=== PATIENT | female | born 1950 | race Caucasian/White ===

== ENCOUNTER 2019-10-05 15:44 | Emergency (ER) | payer MEDICARE, OTHER ==
[~2019-10-05] VITALS: Ht 155 cm; Wt 81.6 kg
[2019-10-05] MEDS ORDERED: FLUO20CA46 (16:31)
[2019-10-05] MEDS ORDERED: PANT40TA3 (16:31)
[2019-10-05 16:39] LABS: BASOPHILS % (AUTO) 0 % (0-10); EOSINOPHILS # (AUTO) 0.1 10^3/uL (0.0-0.3); EOSINOPHILS % (AUTO) 1 % (0-10); HEMATOCRIT 31 % (35-52); HEMOGLOBIN 10.4 G/DL (11.5-16.0); LYMPHOCYTES # (AUTO) 2.1 X 10^3 (1.0-4.0); LYMPHOCYTES % (AUTO) 20 % (12-44); MEAN CORPUSCULAR HEMOGLOBIN 22 PG (25-34); MEAN CORPUSCULAR HGB CONC 33 G/DL (32-36); MEAN CORPUSCULAR VOLUME 66 FL (80-99); MEAN PLATELET VOLUME 9.9 FL (7.4-10.4); MONOCYTES # (AUTO) 0.8 X 10^3 (0.0-1.0); MONOCYTES % (AUTO) 7 % (0-12); NEUTROPHILS # (AUTO) 7.6 X 10^3 (1.8-7.8); NEUTROPHILS % (AUTO) 72 % (42-75); PLATELET COUNT 333 10^3/uL (130-400); RED CELL DISTRIBUTION WIDTH 16.5 % (10.0-14.5); WHITE BLOOD COUNT 10.6 10^3/uL (4.3-11.0)
[2019-10-05 16:50] LABS: CHLORIDE 106 MMOL/L (98-107)
[2019-10-05 16:51] LABS: POTASSIUM 3.4 MMOL/L (3.6-5.0); SODIUM 139 MMOL/L (135-145)
--- NOTE | 2019-10-05 16:51 | ED Abdominal Pain ---
General Chief Complaint: Abdominal/GI Problems Stated Complaint: STERNUM PAIN Nursing Triage Note: PT PRESENTS TO ED COMPLAINING OF UPPER EPIGASTRIC PAIN THAT WOKE HER UP AT 0300 THIS AM. PT REPORTS SHE HAS HAD SIMILAR PAIN BEOFORE AND TOLD IS WAS REFLUX RELATED. PT REPORTS SHE TOOK PEPCID, PEPTO, AND PROTONIX AT HOME WITH NO RELIEF. PT REPORTS IT RADIATES ACROSS HER UPPER ABDOMEN AND AROUND TO HER BACK. PT REPROTS PAIN IS WORSE WHEN SHE LAYS DOWN. Sepsis Screen: No Definite Risk Source of Information: Patient Exam Limitations: No Limitations History of Present Illness Date Seen by Provider: Oct 05, 2019 Time Seen by Provider: 16:49 Initial Comments To ER with severe midline epigastric abdominal pain that radiates in a bandlike fashion around the entire upper abdomen radiating through to the back. It was worsened by laying flat earlier today. No nausea or vomiting. No chills. Timing/Duration: 1-2 Days Severity/Quality: Moderate Location: Epigastric, Generalized Abdomen Radiation: No Radiation Activities at Onset: None Associated Symptoms: Nausea/Vomiting Allergies and Home Medications Allergies Coded Allergies: No Known Drug Allergies (Unverified , 10/05/19) Patient Home Medication List Home Medication List Reviewed: Yes Review of Systems Review of Systems Constitutional: see HPI EENTM: No Symptoms Reported Respiratory: No Symptoms Reported Cardiovascular: No Symptoms Reported Gastrointestinal: See HPI, Abdominal Pain Genitourinary: No Symptoms Reported Musculoskeletal: no symptoms reported Skin: no symptoms reported Psychiatric/Neurological: No Symptoms Reported Endocrine: No Symptoms Reported Past Vdemvxq-Ufpqcr-Eeruji Hx Patient Social History Alcohol Use: Regular Use Alcohol Beverage of Choice: Beer Recreational Drug Use: No Smoking Status: Never a Smoker Recent Foreign Travel: No Contact w/Someone Who Travel: No Recent Infectious Disease Expo: No Recent Hopitalizations: No Physical Abuse: No Sexual Abuse: No Mistreated: No Fear: No Seasonal Allergies Seasonal Allergies: No Past Medical History Surgeries: Yes (R KNEE, NECK) Orthopedic Respiratory: No Cardiac: No Neurological: No Genitourinary: No Gastrointestinal: Yes Gastroesophageal Reflux, Diverticulosis Musculoskeletal: No Endocrine: No HEENT: No Cancer: No Psychosocial: Yes Depression Integumentary: No Blood Disorders: Yes (THALOSEMIA MINOR) Physical Exam Vital Signs Vital Signs - First Documented 10/05/19 16:20 Temp 36.8 Pulse 96 Resp 18 B/P (MAP) 157/78 (104) Pulse Ox 100 Capillary Refill : Less Than 3 Seconds Height/Weight/BMI Height: '" Weight: lbs. oz. kg; 33.00 BMI Method: General Appearance: WD/WN, no apparent distress HEENT: PERRL/EOMI, normal ENT inspection Respiratory: no respiratory distress, no accessory muscle use Cardiovascular: regular rate, rhythm, no murmur Gastrointestinal: normal bowel sounds, soft, tenderness Extremities: normal range of motion, non-tender Neurologic/Psychiatric: alert, normal mood/affect, oriented x 3 Skin: normal color, warm/dry Progress/Results/Core Measures Results/Orders Lab Results Laboratory Tests Test 10/05/19 16:19 Range/Units White Blood Count 10.6 4.3-11.0 10^3/uL Red Blood Count 4.73 4.35-5.85 10^6/uL Hemoglobin 10.4 L 11.5-16.0 G/DL Hematocrit 31 L 35-52 % Mean Corpuscular Volume 66 L 80-99 FL Mean Corpuscular Hemoglobin 22 L 25-34 PG Mean Corpuscular Hemoglobin Concent 33 32-36 G/DL Red Cell Distribution Width 16.5 H 10.0-14.5 % Platelet Count 333 130-400 10^3/uL Mean Platelet Volume 9.9 7.4-10.4 FL Neutrophils (%) (Auto) 72 42-75 % Lymphocytes (%) (Auto) 20 12-44 % Monocytes (%) (Auto) 7 0-12 % Eosinophils (%) (Auto) 1 0-10 % Basophils (%) (Auto) 0 0-10 % Neutrophils # (Auto) 7.6 1.8-7.8 X 10^3 Lymphocytes # (Auto) 2.1 1.0-4.0 X 10^3 Monocytes # (Auto) 0.8 0.0-1.0 X 10^3 Eosinophils # (Auto) 0.1 0.0-0.3 10^3/uL Basophils # (Auto) 0.0 0.0-0.1 10^3/uL Sodium Level 139 135-145 MMOL/L Potassium Level 3.4 L 3.6-5.0 MMOL/L Chloride Level 106 98-107 MMOL/L Carbon Dioxide Level 21 21-32 MMOL/L Anion Gap 12 5-14 MMOL/L Blood Urea Nitrogen 14 7-18 MG/DL Creatinine 0.82 0.60-1.30 MG/DL Estimat Glomerular Filtration Rate > 60 BUN/Creatinine Ratio 17 Glucose Level 119 H 70-105 MG/DL Calcium Level 8.7 8.5-10.1 MG/DL Corrected Calcium 8.7 8.5-10.1 MG/DL Total Bilirubin 1.0 0.1-1.0 MG/DL Aspartate Amino Transf (AST/SGOT) 18 5-34 U/L Alanine Aminotransferase (ALT/SGPT) 19 0-55 U/L Alkaline Phosphatase 79 40-136 U/L Total Protein 7.0 6.4-8.2 GM/DL Albumin 4.0 3.2-4.5 GM/DL Lipase 12 8-78 U/L My Orders Orders - VALERIY PEREZ APRN Cbc With Automated Diff (10/05/19 16:33) Comprehensive Metabolic Panel (10/05/19 16:33) Lipase (10/05/19 16:33) Ua Culture If Indicated (10/05/19 16:33) Ed Iv/Invasive Line Start (10/05/19 16:33) Ketorolac Injection (Toradol Injection) (10/05/19 17:00) Fentanyl Injection (Sublimaze Injection (10/05/19 17:00) Ct Abdomen/Pelvis W (10/05/19 17:12) Antacid Suspension (Mylanta Suspension (10/05/19 17:15) Lidocaine 2% Viscous 15 Ml (Xylocaine Vi (10/05/19 17:15) Iohexol Injection (Omnipaque 350 Mg/Ml 1 (10/05/19 17:30) Received Contrast (Hold Metformin- Contr (10/05/19 17:30) Ns (Ivpb) (Sodium Chloride 0.9% Ivpb Bag (10/05/19 17:30) Iohexol Injection (Omnipaque 350 Mg/Ml 1 (10/05/19 17:30) Received Contrast (Hold Metformin- Contr (10/05/19 17:30) Ns (Ivpb) (Sodium Chloride 0.9% Ivpb Bag (10/05/19 17:30) Medications Given in ED Current Medications Medications Dose Ordered Sig/Nadine Route Start Time Stop Time Status Last Admin Dose Admin Al Hydrox/Mg Hydrox/Simethicone 30 ml ONCE ONCE PO 10/05/19 17:15 10/05/19 17:16 DC 10/05/19 17:50 30 ML Fentanyl Citrate 25 mcg ONCE ONCE IVP 10/05/19 17:00 10/05/19 17:01 DC 10/05/19 17:50 25 MCG Iohexol 100 ml ONCE ONCE IV 10/05/19 17:30 10/05/19 17:31 DC 10/05/19 17:44 100 ML Ketorolac Tromethamine 15 mg ONCE ONCE IVP 10/05/19 17:00 10/05/19 17:01 DC 10/05/19 17:50 15 MG Lidocaine HCl 15 ml ONCE ONCE PO 10/05/19 17:15 10/05/19 17:16 DC 10/05/19 17:50 15 ML Sodium Chloride 100 ml ONCE ONCE IV 10/05/19 17:30 10/05/19 17:31 DC 10/05/19 17:45 80 ML Vital Signs/I&O 10/05/19 16:20 Temp 36.8 Pulse 96 Resp 18 B/P (MAP) 157/78 (104) Pulse Ox 100 Blood Pressure Mean: 104 Diagnostic Imaging Diagonstic Imaging: CT Comments NAME: HEMANTH GONZALES [facility] REC#: [id number] PT STATUS: REG ER : 1950 PHYSICIAN: VALERIY PEREZ MANAGER PRICING ADMIT DATE: 10/05/19/ER Draft Date of Exam:10/05/19 CT ABDOMEN/PELVIS W EXAMINATION: CT abdomen and pelvis with contrast from 10/05/2019. TECHNIQUE: Multiple contiguous axial images were obtained through the abdomen and pelvis after administration of intravenous contrast. Auto Exposure Controls were utilized during the CT exam to meet ALARA standards for radiation dose reduction. INDICATION: Upper abdominal pain which radiates around to the back. FINDINGS: Lung bases and osseous structures are unremarkable. There is fatty infiltration throughout the liver. Gallbladder is markedly distended and contains multiple stones. Sonography could further characterize if there is concern for acute cholecystitis. The pancreas is unremarkable. The spleen contains tiny calcified granulomata. There are several peripherally calcified splenic artery aneurysms, the largest of which measures 1.2 cm. Adrenal glands are unremarkable. Kidneys are unremarkable. Appendix is normal. There are diverticular changes without evidence for acute diverticulitis. IMPRESSION: 1. Distended gallbladder containing multiple stones. See above discussion. 2. Multiple other incidental findings as above. Dictated on workstation # [id number] Dict: 10/05/19 1750 Trans: 10/05/19 180 [id number] Interpreted by: KRISSY BERNAL MD Electronically signed by: Departure Communication (Admissions) [id number] she is completely pain-free and nontender to palpation all I spoke with Dr. BELL, he'll see her Tuesday at 2 PM. Impression Primary Impression: Symptomatic cholelithiasis Disposition: HOME, SELF-CARE Condition: Stable Departure-Patient Inst. Decision time for Depature: 18:13 Referrals: COLTEN JACK MD (PCP/Family) Primary Care Physician DONNA BELL MD Patient Instructions: Gallstones Add. Discharge Instructions: 1. Low fat low dairy product diet in the meantime. He'll see Dr. BELL's office Tuesday at 2 PM. Return to ER for any intolerable pain vomiting fevers or other concerns. Use the pain medication as needed. All discharge instructions reviewed with patient and/or family. Voiced understanding. Scripts Ondansetron (Ondansetron Odt) 8 Mg Tab.rapdis 8 MG PO Q6H PRN for NAUSEA/VOMITING, #10 TAB Prov: VALERIY PEREZ APRN 10/05/19 Copy Copies To 1: DONNA BELL MD, PETER J APRN Oct 05, 2019 16:51
[2019-10-05 16:52] LABS: CALCIUM 8.7 MG/DL (8.5-10.1)
[2019-10-05 16:53] LABS: GLUCOSE 119 MG/DL (70-105)
[2019-10-05 16:54] LABS: CARBON DIOXIDE 21 MMOL/L (21-32)
[2019-10-05 16:56] LABS: ALKALINE PHOSPHATASE 79 U/L (40-136)
[2019-10-05 16:57] LABS: CREATININE SERUM 0.82 MG/DL (0.60-1.30); GFR ESTIMATED > 60
[2019-10-05 16:58] LABS: BUN/CREATININE RATIO 17
[2019-10-05 16:59] LABS: ALANINE AMINOTRANSFERASE 19 U/L (0-55)
[2019-10-05 17:00] LABS: LIPASE 12 U/L (8-78)
[2019-10-05] MEDS ORDERED: KETOROLAC 30 MG/ML VIAL IVP ONE (17:00)
[2019-10-05] MEDS ORDERED: fentaNYL INJECTION 100 MCG/2 ML AMP IVP ONE (17:00)
[2019-10-05] MEDS ORDERED: ANTACID SUSP 30 ML UDC (MYLANTA) PO ONE (17:15)
[2019-10-05] MEDS ORDERED: LIDOCAINE 2% VISCOUS 15 ML UDC PO ONE (17:15)
[2019-10-05] MEDS ORDERED: NS 100 ML (IVPB) BAG IV ONE ×2 (17:30)
[2019-10-05] MEDS ORDERED: HOLD METFORMIN - RECEIVED CONTRAST 20 ML VIAL IV SCH ×2 (17:30)
[2019-10-05] MEDS ORDERED: IOHEXOL 350 MG/ML 100 ML (OMNIPAQUE 350) VIAL IV ONE ×2 (17:30)
--- NOTE | 2019-10-05 18:03 | Diagnostic Imaging Report ---
EXAMINATION: CT abdomen and pelvis with contrast from 10/05/2019. TECHNIQUE: Multiple contiguous axial images were obtained through the abdomen and pelvis after administration of intravenous contrast. Auto Exposure Controls were utilized during the CT exam to meet ALARA standards for radiation dose reduction. INDICATION: Upper abdominal pain which radiates around to the back. FINDINGS: Lung bases and osseous structures are unremarkable. There is fatty infiltration throughout the liver. Gallbladder is markedly distended and contains multiple stones. Sonography could further characterize if there is concern for acute cholecystitis. The pancreas is unremarkable. The spleen contains tiny calcified granulomata. There are several peripherally calcified splenic artery aneurysms, the largest of which measures 1.2 cm. Adrenal glands are unremarkable. Kidneys are unremarkable. Appendix is normal. There are diverticular changes without evidence for acute diverticulitis. IMPRESSION: 1. Distended gallbladder containing multiple stones. See above discussion. 2. Multiple other incidental findings as above. Dictated by: Dictated on workstation # [id number]
[2019-10-05] MEDS ORDERED: HYDR-3870 PO (18:15)
[2019-10-05] MEDS ORDERED: ONDA8TAB13 PO (18:15)
[2019-10-05 18:25] VITALS: BP 159/84
[2019-10-05] MEDS ORDERED: RX-HYDROCODONE/APAP 5/325 MG #4 TAB PK PO PRN (18:30)
--- OUTSIDE RECORDS SUMMARY | 2019-10-05 19:21 | XMS REPORT | CCD ---
Author Author Vaishali Najera Organization Anita Najera MD, [facility] Address [address] [place] [address] Phone Care Team Providers Care Motor Checker Name Role Phone PP Unavailable CCM Unavailable Summary Purpose Interface Exchange Insurance Providers Payer name Policy type / Coverage type Covered green party ID Effective Begin Date Effective End Date WPS Medicare Part B Medicare Part B [id number] Unknown Cigna Medicare Part B 80 [id number] Unknown Family history Father Diagnosis Age At Onset Colon cancer Unknown Mother Diagnosis Age At Onset Cancer Unknown Colon cancer Unknown Brother Diagnosis Age At Onset lung cancer Unknown Depression Unknown Social History Social History Element Codes Description Effective Dates Marital status Unknown M arried 10/28/2014 Number of children Unknown 2 10/28/2014 Employment Unknown Retir ed previously worked at the [employer] in the [place] - sometimes 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 10/28/[address]: 438985027 Never smoker 10/28/[address]: 022730 Currently drinks alcohol 10/28/2014 Frequency of drinks SNOMED CT: 602956745 14 drinks per week - drinks about 3 nights a week - 4 - 5 beers at a time . 10/28/2014 Allergies, Adverse Reactions, Alerts Substance Reaction Codes Entered Date Inactivated Date Status * NO KNOWN DRUG KORY RGIES Unknown 10/28/2014 No Inactive Date Active Past Medical History Illness Codes Condition Status Onset Date Resolved Date Allergic rhinitis du e to pollen ICD-9: 477.9 ICD-10: J30.1 Active 10/30/2018 Unknown Impacted cerumen, bi lateral ICD-9: 380.4 ICD-10: H61.23 Active 10/23/2018 Unknown Other acute sinusitis ICD-9: 461.8 ICD-10: J01.80 Active 10/23/2018 Unknown Other allergic rhinitis ICD-9: 477.8 ICD-10: J30.89 Active 10/23/2018 Unknown Gastro-esophageal re flux disease without esophagitis ICD-9: 530.81 ICD-10: K21.9 Active 11/30/2017 Unknown Thalassemia minor ICD-9: 282.46 ICD-10: D56.3 Active 05/17/2017 Unknown Generalized anxiety disorder ICD-9: 300.00 ICD-10: F41.1 Active 11/30/2017 Unknown Major depressive dis order, single episode, moderate ICD-9: 296.22 ICD-10: F32.1 Active 11/30/2017 Unknown Encounter for genera l adult medical examination with abnormal findings ICD-9: V70.0 ICD-10: Z00.01 Active 05/12/2016 Unknown Pain in right knee ICD- 9: 719.46 ICD-10: M25.561 Active 02/16/2016 Unknown Encounter for genera l adult medical examination without abnormal findings ICD-9: V70.0 ICD-10: Z00.00 Active 04/13/2015 Unknown Benign paroxysmal ve rtigo, unspecified ear ICD-9: 780.4 ICD-10: H81.10 Active 12/22/2014 Unknown Depression Unknown Active 10/28/2014 Unknow n DEPRESSIVE DISORDER NEC ICD-9: 311 Active 10/27/2014 Unknown ESOPHAGEAL REFLUX ICD-9: 530.81 Active 10/27/2014 Unknown Routine medical exam ICD-9: V70.0 Active 10/27/2014 Unknown Thalassemia carrier ICD- 9: 282.46 Active 10/27/2014 Unknown Problems Condition Codes Effectiv e Dates Condition Status Allergic rhinitis du e to pollen ICD-9: 477.9 ICD-10: J30.1 10/30/2018 Active Impacted cerumen, bi lateral ICD-9: 380.4 ICD-10: H61.23 10/23/2018 Active Other acute sinusitis ICD-9: 461.8 ICD-10: J01.80 10/23/2018 Active Other allergic rhinitis ICD-9: 477.8 ICD-10: J30.89 10/23/2018 Active Gastro-esophageal re flux disease without esophagitis ICD-9: 530.81 ICD-10: K21.9 11/30/2017 Active Thalassemia minor ICD-9: 282.46 ICD-10: D56.3 05/17/2017 Active Generalized anxiety disorder ICD-9: 300.00 ICD-10: F41.1 11/30/2017 Active Major depressive dis order, single episode, moderate ICD-9: 296.22 ICD-10: F32.1 11/30/2017 Active Encounter for genera l adult medical examination with abnormal findings ICD-9: V70.0 ICD-10: Z00.01 05/12/2016 Active Pain in right knee ICD- 9: 719.46 ICD-10: M25.561 02/16/2016 Active Encounter for genera l adult medical examination without abnormal findings ICD-9: V70.0 ICD-10: Z00.00 04/13/2015 Active Benign paroxysmal ve rtigo, unspecified ear ICD-9: 780.4 ICD-10: H81.10 12/22/2014 Active Depression Unknown 10/28/2014 Active DEPRESSIVE DISORDER NEC ICD-9: 311 10/27/2014 Active ESOPHAGEAL REFLUX ICD-9: 530.81 10/27/2014 Active Routine medical exam ICD-9: V70.0 10/27/2014 Active Thalassemia carrier ICD- 9: 282.46 10/27/2014 Active Medications Medication Codes Instruc tions Start Date Stop Date Sta tus Fill Instructions Zithromax Z-Feliberto 250 mg tablet RxNorm: 717589 1 Tablet(s) PO UD 10/23/2018 No Stop Date Active zpack as directed Protonix 40 mg table t,delayed release RxNorm: 838816 1 Tablet(s) PO daily 10/05/2018 02/01/2019 Ac tive Protonix 40 mg table t,delayed release RxNorm: 114579 1 Tablet(s) PO daily 09/13/2018 09/26/2018 In active Carafate 1 gram tablet RxNorm: 282999 1 Tablet(s) PO QID as needed 09/13/2018 10/12/2018 Inactive Prozac 20 mg capsule RxNorm: 923616 TAKE 1 CAPSULE BY MOUTH ONCE DAILY 08/09/2018 No Stop Date Active omeprazole 20 mg cap bernadette,delayed release RxNorm: 556122 TAKE 1 CAPSULE BY MEREDITH TH ONCE DAILY 08/07/2018 10/04/2018 Inactive Prozac 20 mg capsule RxNorm: 854781 TAKE 1 CAPSULE BY MOUTH ONCE DAILY 07/10/2018 08/08/2018 In active Prozac 20 mg capsule RxNorm: 809200 TAKE 1 CAPSULE BY MOUTH ONCE DAILY 12/29/2017 07/09/2018 In active Prozac 20 mg capsule RxNorm: 795493 TAKE 1 CAPSULE BY MOUTH ONCE DAILY 11/28/2017 12/28/2017 In active Prozac 20 mg capsule RxNorm: 753297 TAKE ONE CAPSULE BY MOUTH ONCE DAILY 08/22/2017 11/27/2017 In active omeprazole 20 mg cap bernadette,delayed release RxNorm: 471721 1 Capsule(s) PO daily 07/07/2017 01/02/2018 In active omeprazole 20 mg cap bernadette,delayed release RxNorm: 028291 1 Capsule(s) PO daily 05/17/2017 06/15/2017 In active Prozac 20 mg capsule RxNorm: 549056 TAKE ONE CAPSULE BY MOUTH ONCE DAILY 02/07/2017 08/21/2017 In active Zithromax Z-Feliberto 250 mg tablet RxNorm: 730173 1 Tablet(s) PO UD 01/13/2017 07/06/2017 Inactive zpack as directed Prozac 20 mg capsule RxNorm: 084441 TAKE ONE CAPSULE BY MOUTH ONCE DAILY 01/03/2017 02/06/2017 In active omeprazole 40 mg cap bernadette,delayed release RxNorm: 033682 TAKE ONE CAPSULE BY M OUTH EVERY OTHER DAY 01/03/2017 07/06/2017 Inactive Prozac 20 mg capsule RxNorm: 315323 TAKE ONE CAPSULE BY MOUTH ONCE DAILY 10/04/2016 01/01/2017 In active omeprazole 40 mg cap bernadette,delayed release RxNorm: 690284 TAKE ONE CAPSULE BY M OUTH EVERY OTHER DAY 05/24/2016 11/19/2016 Inactive Prozac 20 mg capsule RxNorm: 033692 TAKE ONE CAPSULE BY MOUTH ONCE DAILY 05/24/2016 09/20/2016 In active omeprazole 40 mg cap bernadette,delayed release RxNorm: 513577 TAKE ONE CAPSULE BY M OUTH EVERY OTHER DAY 03/22/2016 05/20/2016 Inactive Prozac 20 mg capsule RxNorm: 496253 Capsule(s) TAKE ONE CAPSULE BY MOUTH ONC E DAILY 11/18/2015 05/15/2016 Inactive Prozac 20 mg capsule RxNorm: 743769 Capsule(s) TAKE ONE CAPSULE BY MOUTH ONC E DAILY 09/16/2015 11/14/2015 Inactive omeprazole 40 mg cap bernadette,delayed release RxNorm: 345412 Capsule(s) 1 Capsule( s) PO every other day 08/29/2015 02/24/2016 Inactive Prozac 20 mg capsule RxNorm: 458378 Capsule(s) TAKE ONE CAPSULE BY MOUTH ONC E DAILY 07/22/2015 09/15/2015 Inactive Prozac 20 mg capsule RxNorm: 951530 Capsule(s) TAKE ONE CAPSULE BY MOUTH ONC E DAILY 05/19/2015 07/17/2015 Inactive Prozac 20 mg capsule RxNorm: 182822 TAKE ONE CAPSULE BY MOUTH ONCE DAILY 03/14/2015 05/12/2015 In active omeprazole 40 mg cap bernadette,delayed release RxNorm: 015059 1 Capsule(s) PO every other day 02/06/2015 08/04/2015 Inactive omeprazole 40 mg cap bernadette,delayed release RxNorm: 408827 1 Capsule(s) PO every other day 01/06/2015 02/04/2015 Inactive Prozac 20 mg capsule RxNorm: 554980 1 Capsule(s) PO daily 11/04/2014 03/03/2015 Inactive Prozac 40 mg capsule RxNorm: 683282 1 Capsule(s) PO daily 10/28/2014 11/03/2014 Inactive omeprazole 40 mg cap bernadette,delayed release RxNorm: 758548 1 Capsule(s) PO every other day 10/28/2014 11/26/2014 Inactive Prozac oral RxNorm: 388845 oral No Start Date 10/27/2014 Inactive Zithromax Z-Feliberto 250 mg tablet RxNorm: 405891 1 Tablet(s) PO UD No Start Date 01/12/2017 Inactive zpack as directed Protonix 40 mg table t,delayed release RxNorm: 812220 1 Tablet(s) PO daily No Start Date 10/28/2014 Inactive Medication Administered No Medication Administered data Immunizations No Immunization data Assessments Condition Codes Effectiv e Dates Allergic rhinitis due to pollen ICD- 10: J30.1 ICD-9: 477.9 10/30/2018 Other allergic rhinitis ICD-10: J30. 89 ICD-9: 477.8 10/23/2018 Impacted cerumen, bilateral ICD-10: H61.23 ICD-9: 380.4 10/23/2018 Other acute sinusitis ICD-10: J01.80 ICD-9: 461.8 10/23/2018 Gastro-esophageal reflux disease without esophagitis ICD-10: K21.9 ICD-9: 530.81 09/13/2018 Major depressive disorder, single episode, moderate ICD-10: F32.1 ICD-9: 296.22 11/30/2017 Generalized anxiety disorder ICD-10: F41.1 ICD-9: 300.00 11/30/2017 Thalassemia minor ICD-10: D56.3 ICD-9: 282.46 11/30/2017 Encounter for general adult medical exam ination with abnormal findings ICD-10: Z00.01 ICD-9: V70.0 05/17/2017 Pain in right knee ICD-10: M25.561 ICD-9: 719.46 02/17/2016 Encounter for general adult medical exam ination without abnormal findings ICD-10: Z00.00 ICD-9: V70.0 04/14/2015 Benign paroxysmal vertigo, unspecified ear ICD-10: H81.10 ICD-9: 780.4 12/23/2014 Thalassemia carrier ICD-9: 282.46 10/28/2014 Routine medical exam ICD-9: V70.0 10/28/2014 ESOPHAGEAL REFLUX ICD-9: 530.81 10/28/2014 DEPRESSIVE DISORDER NEC ICD-9: 311 10/28/2014 Reason For Visit Reason For Visit Effective Dates Notes earache 10/23/2018 drain age abdominal pain 09/13/2018 medication follow up 11/30/2017 Annual Medicare Wellness Exam 05/17/2017 Annual Medicare Wellness Exam 05/12/2016 knee pain 02/17/2016 Annual Medicare Wellness Exam 04/14/2015 vertigo 12/23/2014 depression 10/28/2014 delano jones prozac Results Observation Observation Code Item Item Code Result Date Cbc With Differential Ord2 WBC 9.01 K/ul 09/13/2018 Cbc With Differential Ord2 RBC 4.60 M/ul 09/13/2018 Cbc With Differential Ord2 HGB 10.1 g/dl 09/13/2018 Cbc With Differential Ord2 HCT 30.9 % 09/13/2018 Cbc With Differential Ord2 Neut% 66.5 % 09/13/2018 Cbc With Differential Ord2 MCV 67.2 fl 09/13/2018 Cbc With Differential Ord2 Lymph% 23.6 % 09/13/2018 Cbc With Differential Ord2 MCH 22.0 pg 09/13/2018 Cbc With Differential Ord2 [place]% 8.0 % 09/13/2018 Cbc With Differential Ord2 MCHC 32.7 pg 09/13/2018 Cbc With Differential Ord2 Eos% 1.7 % 09/13/2018 Cbc With Differential Ord2 PLT 361 K/ul 09/13/2018 Cbc With Differential Ord2 Baso% 0.2 % 09/13/2018 Cbc With Differential Ord2 Neut ABS# 5.99 K/ul 09/13/2018 Cbc With Differential Ord2 RDW 16.7 % 09/13/2018 Cbc With Differential Ord2 Lymph ABS# 2.13 K/ul 09/13/2018 Cbc With Differential Ord2 [place] ABS# 0.7 K/ul 09/13/2018 Cbc With Differential Ord2 Eos ABS# 0.2 K/ul 09/13/2018 Cbc With Differential Ord2 Baso ABS# 0.0 K/ul 09/13/2018 Comp Metabolic Oes855 NA 137 mEq/L 09/13/2018 Comp Metabolic Dzf650 K 4.3 mEq/L 09/13/2018 Comp Metabolic Syz185 CL 101 mEq/L 09/13/2018 Comp Metabolic Xop088 CO2 28.0 mEq/L 09/13/2018 Comp Metabolic Dlb499 AN ION GAP 12 09/13/2018 Comp Metabolic Mse540 GL UCOSE 97 mg/dL 09/13/2018 Comp Metabolic Irp668 Cr eat 0.9 mg/dL 09/13/2018 Comp Metabolic Zmf760 eG FR 64 ml/min/1.73m2 09/13 Comp Metabolic Pbm777 BUN 16 mg/dL 09/13/2018 Comp Metabolic Aap044 B/ C Ratio 17.2 Ratio 09/13/2018 Comp Metabolic Gax703 CA LCIUM 9.6 mg/dL 09/13/2018 Comp Metabolic Myn366 AL K PHOS 94 U/L 09/13/2018 Comp Metabolic Uua790 T(SGOT) 49 U/L 09/13/2018 Comp Metabolic Jfu278 AL T(SGPT) 29 U/L 09/13/2018 Comp Metabolic Lix207 BI LI T 1.2 mg/dL 09/13/2018 Comp Metabolic Jfe349 AL BUMIN 4.3 g/dL 09/13/2018 Comp Metabolic Pxa128 TP RO 7.0 g/dL 09/13/2018 Comp Metabolic Ich757 GL OB 2.7 g/dL 09/13/2018 Comp Metabolic Tdr751 A/ G Ratio 1.6 Ratio 09/13/2018 Comp Metabolic Yhj867 Os mo 275 mOsmo 09/13/2018 Cbc With Differential Ord2 WBC 5.67 K/ul 05/19/2017 Cbc With Differential Ord2 RBC 4.70 M/ul 05/19/2017 Cbc With Differential Ord2 HGB 10.3 g/dl 05/19/2017 Cbc With Differential Ord2 HCT 32.1 % 05/19/2017 Cbc With Differential Ord2 Neut% 53.4 % 05/19/2017 Cbc With Differential Ord2 MCV 68.3 fl 05/19/2017 Cbc With Differential Ord2 Lymph% 34.9 % 05/19/2017 Cbc With Differential Ord2 MCH 21.9 pg 05/19/2017 Cbc With Differential Ord2 [place]% 8.1 % 05/19/2017 Cbc With Differential Ord2 MCHC 32.1 pg 05/19/2017 Cbc With Differential Ord2 Eos% 3.2 % 05/19/2017 Cbc With Differential Ord2 PLT 302 K/ul 05/19/2017 Cbc With Differential Ord2 Baso% 0.4 % 05/19/2017 Cbc With Differential Ord2 RDW 16.2 % 05/19/2017 Cbc With Differential Ord2 Neut ABS# 3.03 K/ul 05/19/2017 Cbc With Differential Ord2 Lymph ABS# 1.98 K/ul 05/19/2017 Cbc With Differential Ord2 [place] ABS# 0.5 K/ul 05/19/2017 Cbc With Differential Ord2 Eos ABS# 0.2 K/ul 05/19/2017 Cbc With Differential Ord2 Baso ABS# 0.0 K/ul 05/19/2017 Comp Metabolic Ppo309 NA 142 mEq/L 05/19/2017 Comp Metabolic Exm483 K 4.2 mEq/L 05/19/2017 Comp Metabolic Auz733 CL 105 mEq/L 05/19/2017 Comp Metabolic Nsj248 CO2 29.0 mEq/L 05/19/2017 Comp Metabolic Eyu284 AN ION GAP 12 05/19/2017 Comp Metabolic Eum253 GL UCOSE 95 mg/dL 05/19/2017 Comp Metabolic Cyb621 Cr eat 0.7 mg/dL 05/19/2017 Comp Metabolic Lmu182 eG FR 90 ml/min/1.73m2 05/19 Comp Metabolic Ixj204 BUN 14 mg/dL 05/19/2017 Comp Metabolic Rlm236 B/ C Ratio 20.3 Ratio 05/19/2017 Comp Metabolic Yhv214 CA LCIUM 9.1 mg/dL 05/19/2017 Comp Metabolic Izp104 AL K PHOS 70 U/L 05/19/2017 Comp Metabolic Jgy467 T(SGOT) 17 U/L 05/19/2017 Comp Metabolic Cin530 AL T(SGPT) 14 U/L 05/19/2017 Comp Metabolic Nam423 BI LI T 0.9 mg/dL 05/19/2017 Comp Metabolic Meh614 AL BUMIN 4.2 g/dL 05/19/2017 Comp Metabolic Kne190 TP RO 6.4 g/dL 05/19/2017 Comp Metabolic Zfc935 GL OB 2.2 g/dL 05/19/2017 Comp Metabolic Kof411 A/ G Ratio 1.9 Ratio 05/19/2017 Comp Metabolic Ypm159 Os mo 283 mOsmo 05/19/2017 Tsh Ord6 TSH (3rd IS) 1.28 uIU/mL 05/19/2017 Lipid Ord30 CHOL 213 mg/dL 05/19/2017 Lipid Ord30 HDL 79.0 mg/dl 05/19/2017 Lipid Ord30 TRIG 73 mg/dL 05/19/2017 Lipid Ord30 LDL 119 mg/dL 05/19/2017 Lipid Ord30 C/HDL 2.7 Ratio 05/19/2017 Influenza A+B Idn129 Inf jeff A+B Negative 01/12/2017 Tsh Ord6 hTSH II 1.17 uIU/mL 10/29/2014 Comp Metabolic Gou130 NA 138 mEq/L 10/29/2014 Comp Metabolic Jok940 K 4.3 mEq/L 10/29/2014 Comp Metabolic Xra508 CL 102 mEq/L 10/29/2014 Comp Metabolic Mxd856 CO2 30.0 mEq/L 10/29/2014 Comp Metabolic Zuo628 AN ION GAP 10 10/29/2014 Comp Metabolic Uyp295 GL UCOSE 76 mg/dL 10/29/2014 Comp Metabolic Bia799 Cr eat 0.8 mg/dL 10/29/2014 Comp Metabolic Ccd884 eG FR 81 ml/min/1.73m2 10/29 Comp Metabolic Ilv121 BUN 9 mg/dL 10/29/2014 Comp Metabolic Ube159 B/ C Ratio 11.8 Ratio 10/29/2014 Comp Metabolic Kbb669 CA LCIUM 9.1 mg/dL 10/29/2014 Comp Metabolic Enm290 AL K PHOS 75 U/L 10/29/2014 Comp Metabolic Fvh800 T(SGOT) 14 U/L 10/29/2014 Comp Metabolic Zwa287 AL T(SGPT) 12 U/L 10/29/2014 Comp Metabolic Hch583 BI LI T 0.8 mg/dL 10/29/2014 Comp Metabolic Shw073 AL BUMIN 4.2 g/dL 10/29/2014 Comp Metabolic Kft680 TP RO 6.6 g/dL 10/29/2014 Comp Metabolic Ghi142 GL OB 2.4 g/dL 10/29/2014 Comp Metabolic Hyz220 A/ G Ratio 1.8 Ratio 10/29/2014 Comp Metabolic Cvw860 Os mo 273 mOsmo 10/29/2014 Lipid Ord30 CHOL 215 mg/dL 10/29/2014 Lipid Ord30 HDL 77.0 mg/dl 10/29/2014 Lipid Ord30 TRIG 146 mg/dL 10/29/2014 Lipid Ord30 LDL 109 mg/dL 10/29/2014 Lipid Ord30 C/HDL 2.8 Ratio 10/29/2014 Cbc With Differential Ord2 WBC 6.0 K/uL 10/29/2014 Cbc With Differential Ord2 LYM 2.3 K/uL 10/29/2014 Cbc With Differential Ord2 LYM% 39.0 % 10/29/2014 Cbc With Differential Ord2 NEUT/GRAN 3.3 K/uL 10/29/2014 Cbc With Differential Ord2 NEUT/GRAN % 55.3 % 10/29/2014 Cbc With Differential Ord2 MID 0.3 K/uL 10/29/2014 Cbc With Differential Ord2 MID% 5.7 % 10/29/2014 Cbc With Differential Ord2 RBC 4.98 M/uL 10/29/2014 Cbc With Differential Ord2 HGB 10.4 g/dL 10/29/2014 Cbc With Differential Ord2 HCT 33.7 % 10/29/2014 Cbc With Differential Ord2 MCV 68 fL 10/29/2014 Cbc With Differential Ord2 MCH 21 pg 10/29/2014 Cbc With Differential Ord2 MCHC 31 g/dL 10/29/2014 Cbc With Differential Ord2 PLT 310 K/uL 10/29/2014 Cbc With Differential Ord2 RDW 17.2 % 10/29/2014 Review of Systems System Result Effective Dates Constitutional recent illness 10/23/2018 Constitutional No chills 10/23/2018 Constitutional No diaphoresis 10/23/2018 Constitutional No fever 10/23/2018 Eyes No eye erythema Ears/Nose/Throat/Neck nasal allergies 10/23/2018 Ears/Nose/Throat/Neck nasal discharge 10/23/2018 Ears/Nose/Throat/Neck postnasal drip 10/23/2018 Ears/Nose/Throat/Neck sinus congestion 10/23/2018 Ears/Nose/Throat/Neck No sore throat 10/23/2018 Cardiovascular No chest pain/pressure 10/23/2018 Cardiovascular No dyspnea 10/23/2018 Respiratory No chest congestion 10/23/2018 Respiratory cough 2018 Respiratory No dyspnea 0 10/23/2018 Gastrointestinal No abdominal pain 10/23/2018 Gastrointestinal No constipation 10/23/2018 Gastrointestinal No diarrhea 10/23/2018 Gastrointestinal No nausea 10/23/2018 Gastrointestinal No vomiting 10/23/2018 Dermatologic No rash Neurologic No alteration of consciousness 10/23/2018 Neurologic No mental status change 10/23/2018 Ears/Nose/Throat/Neck otalgia 10/23/2018 Constitutional recent illness 09/13/2018 Constitutional No chills 09/13/2018 Constitutional No diaphoresis 09/13/2018 Constitutional No fever 09/13/2018 Eyes No eye erythema 12/2018 Ears/Nose/Throat/Neck No nasal discharge 09/13/2018 Cardiovascular No chest pain/pressure 09/13/2018 Cardiovascular No dyspnea 09/13/2018 Respiratory No chest congestion 09/13/2018 Respiratory No cough 12/2018 Gastrointestinal abdominal pain 09/13/2018 Gastrointestinal No constipation 09/13/2018 Gastrointestinal diarrhea 09/13/2018 Gastrointestinal No hematochezia 09/13/2018 Gastrointestinal No melena 09/13/2018 Gastrointestinal nausea 09/13/2018 Gastrointestinal vomiting 09/13/2018 Neurologic No alteration of consciousness 09/13/2018 Neurologic No mental status change 09/13/2018 Gastrointestinal gastroesophageal reflux 09/13/2018 Constitutional No recent illness 11/30/2017 Constitutional No chills 11/30/2017 Constitutional No diaphoresis 11/30/2017 Constitutional No fever 11/30/2017 Eyes No eye erythema Ears/Nose/Throat/Neck No nasal discharge 11/30/2017 Ears/Nose/Throat/Neck No nasal allergies 11/30/2017 Cardiovascular No chest pain/pressure 11/30/2017 Cardiovascular No dyspnea 11/30/2017 Respiratory No cough Respiratory No chest congestion 11/30/2017 Gastrointestinal No abdominal pain 11/30/2017 Gastrointestinal No constipation 11/30/2017 Gastrointestinal No diarrhea 11/30/2017 Gastrointestinal No vomiting 11/30/2017 Gastrointestinal No nausea 11/30/2017 Gastrointestinal No melena 11/30/2017 Gastrointestinal No hematochezia 11/30/2017 Gastrointestinal No gastroesophageal reflu x 11/30/2017 Musculoskeletal No joint complaint 11/30/2017 Dermatologic No rash Neurologic No alteration of consciousness 11/30/2017 Neurologic No mental status change 11/30/2017 Constitutional No recent illness 05/17/2017 Constitutional No chills 05/17/2017 Constitutional No diaphoresis 05/17/2017 Constitutional No fever 05/17/2017 Eyes No eye erythema Ears/Nose/Throat/Neck No nasal discharge 05/17/2017 Cardiovascular No chest pain/pressure 05/17/2017 Cardiovascular No dyspnea 05/17/2017 Respiratory No cough Respiratory No dyspnea 0 05/17/2017 Neurologic No alteration of consciousness 05/17/2017 Neurologic No mental status change 05/17/2017 Constitutional recent illness 05/12/2016 Constitutional No chills 05/12/2016 Constitutional No diaphoresis 05/12/2016 Constitutional No fever 05/12/2016 Eyes No eye erythema 10/2016 Ears/Nose/Throat/Neck nasal allergies 05/12/2016 Ears/Nose/Throat/Neck postnasal drip 05/12/2016 Ears/Nose/Throat/Neck sinus congestion 05/12/2016 Cardiovascular No chest pain/pressure 05/12/2016 Cardiovascular No dyspnea 05/12/2016 Respiratory No chest congestion 05/12/2016 Respiratory No cough 10/2016 Respiratory No dyspnea 0 05/12/2016 Gastrointestinal No abdominal pain 05/12/2016 Gastrointestinal No constipation 05/12/2016 Gastrointestinal No diarrhea 05/12/2016 Gastrointestinal No nausea 05/12/2016 Gastrointestinal No vomiting 05/12/2016 Musculoskeletal No joint complaint 05/12/2016 Dermatologic No rash 10/2016 Neurologic No alteration of consciousness 05/12/2016 Neurologic No mental status change 05/12/2016 Ears/Nose/Throat/Neck nasal discharge 05/12/2016 Constitutional No recent illness 02/17/2016 Constitutional No fever 02/17/2016 Constitutional No diaphoresis 02/17/2016 Constitutional No chills 02/17/2016 Musculoskeletal joint complaint 02/17/2016 Musculoskeletal swelling 02/17/2016 Neurologic No alteration of consciousness 02/17/2016 Neurologic No mental status change 02/17/2016 Constitutional No recent illness 04/14/2015 Constitutional No malaise 04/14/2015 Constitutional No insomnia 04/14/2015 Constitutional No fatigue 04/14/2015 Constitutional No diaphoresis 04/14/2015 Constitutional No chills 04/14/2015 Constitutional No night sweats 04/14/2015 Constitutional No fever 04/14/2015 Eyes No eye discharge Eyes No eye erythema 10/2015 Ears/Nose/Throat/Neck No dizziness 04/14/2015 Ears/Nose/Throat/Neck No dental pain 04/14/2015 Ears/Nose/Throat/Neck No dysphagia 04/14/2015 Ears/Nose/Throat/Neck No facial pain 04/14/2015 Ears/Nose/Throat/Neck No headache 04/14/2015 Ears/Nose/Throat/Neck No hearing loss 04/14/2015 Ears/Nose/Throat/Neck No hoarseness 04/14/2015 Ears/Nose/Throat/Neck No nasal discharge 04/14/2015 Ears/Nose/Throat/Neck No nasal allergies 04/14/2015 Ears/Nose/Throat/Neck No snoring 04/14/2015 Ears/Nose/Throat/Neck No sinus congestion 04/14/2015 Ears/Nose/Throat/Neck postnasal drip 04/14/2015 Cardiovascular No chest pain/pressure 04/14/2015 Cardiovascular No dyspnea 04/14/2015 Cardiovascular No edema 04/14/2015 Respiratory No cough 10/2015 Respiratory No chest congestion 04/14/2015 Gastrointestinal No abdominal pain 04/14/2015 Gastrointestinal No diarrhea 04/14/2015 Gastrointestinal No constipation 04/14/2015 Gastrointestinal No gas and bloating 04/14/2015 Gastrointestinal No nausea 04/14/2015 Gastrointestinal No gastroesophageal reflu x 04/14/2015 Gastrointestinal No melena 04/14/2015 Genitourinary/Nephrology No dysuria 04/14/2015 Genitourinary/Nephrology No flank pain 04/14/2015 Musculoskeletal No joint complaint 04/14/2015 Dermatologic No rash 10/2015 Dermatologic No sores Neurologic No alteration of consciousness 04/14/2015 Psychiatric No anxiety 0 04/14/2015 Psychiatric No depression 04/14/2015 Constitutional No recent illness 12/23/2014 Constitutional No chills 12/23/2014 Constitutional No fatigue 12/23/2014 Constitutional No fever 12/23/2014 Constitutional No insomnia 12/23/2014 Constitutional No malaise 12/23/2014 Eyes No blindness 2014 Eyes No vision change Ears/Nose/Throat/Neck No dental pain 12/23/2014 Ears/Nose/Throat/Neck dizziness 12/23/2014 Ears/Nose/Throat/Neck No dysphagia 12/23/2014 Ears/Nose/Throat/Neck No headache 12/23/2014 Ears/Nose/Throat/Neck No hearing loss 12/23/2014 Ears/Nose/Throat/Neck No nasal allergies 12/23/2014 Ears/Nose/Throat/Neck No sore throat 12/23/2014 Ears/Nose/Throat/Neck No postnasal drip 12/23/2014 Ears/Nose/Throat/Neck No sinus congestion 12/23/2014 Cardiovascular No chest pain/pressure 12/23/2014 Cardiovascular No dyspnea 12/23/2014 Cardiovascular No edema 12/23/2014 Cardiovascular No exercise intolerance 12/23/2014 Cardiovascular No fatigue 12/23/2014 Cardiovascular No near-syncope/dizziness 12/23/2014 Respiratory No chest tightness 12/23/2014 Respiratory No cough Respiratory No dyspnea 1 Respiratory No pedal edema 12/23/2014 Gastrointestinal No abdominal pain 12/23/2014 Gastrointestinal No constipation 12/23/2014 Gastrointestinal No diarrhea 12/23/2014 Gastrointestinal No gastroesophageal reflu x 12/23/2014 Gastrointestinal No nausea 12/23/2014 Gastrointestinal No vomiting 12/23/2014 Genitourinary/Nephrology No dysuria 12/23/2014 Genitourinary/Nephrology No nocturia 12/23/2014 Genitourinary/Nephrology No urinary incontinence 12/23/2014 Musculoskeletal No stiffness 12/23/2014 Musculoskeletal No swelling 12/23/2014 Musculoskeletal No muscle weakness 12/23/2014 Musculoskeletal No myalgias 12/23/2014 Dermatologic No rash Dermatologic No sores Dermatologic No scar Neurologic No dizziness 12/23/2014 Neurologic No headache 1 Neurologic No neck pain 12/23/2014 Neurologic No syncope Psychiatric No anxiety 1 Psychiatric No depression 12/23/2014 Constitutional No recent illness 10/28/2014 Constitutional No chills 10/28/2014 Constitutional No fatigue 10/28/2014 Constitutional No fever 10/28/2014 Constitutional No insomnia 10/28/2014 Constitutional No malaise 10/28/2014 Eyes No blindness 2014 Eyes No vision change Ears/Nose/Throat/Neck No dental pain 10/28/2014 Ears/Nose/Throat/Neck No dizziness 10/28/2014 Ears/Nose/Throat/Neck No dysphagia 10/28/2014 Ears/Nose/Throat/Neck No headache 10/28/2014 Ears/Nose/Throat/Neck No hearing loss 10/28/2014 Ears/Nose/Throat/Neck No nasal allergies 10/28/2014 Ears/Nose/Throat/Neck No sore throat 10/28/2014 Ears/Nose/Throat/Neck No postnasal drip 10/28/2014 Ears/Nose/Throat/Neck No sinus congestion 10/28/2014 Cardiovascular No chest pain/pressure 10/28/2014 Cardiovascular No dyspnea 10/28/2014 Cardiovascular No edema 10/28/2014 Cardiovascular No exercise intolerance 10/28/2014 Cardiovascular No fatigue 10/28/2014 Cardiovascular No near-syncope/dizziness 10/28/2014 Respiratory No chest tightness 10/28/2014 Respiratory No cough Respiratory No dyspnea 0 10/28/2014 Respiratory No pedal edema 10/28/2014 Gastrointestinal No abdominal pain 10/28/2014 Gastrointestinal No constipation 10/28/2014 Gastrointestinal No diarrhea 10/28/2014 Gastrointestinal No gastroesophageal reflu x 10/28/2014 Gastrointestinal No nausea 10/28/2014 Gastrointestinal No vomiting 10/28/2014 Genitourinary/Nephrology No dysuria 10/28/2014 Genitourinary/Nephrology No nocturia 10/28/2014 Genitourinary/Nephrology No urinary incontinence 10/28/2014 Musculoskeletal No stiffness 10/28/2014 Musculoskeletal No swelling 10/28/2014 Musculoskeletal No muscle weakness 10/28/2014 Musculoskeletal No myalgias 10/28/2014 Dermatologic No rash Dermatologic No sores Dermatologic No scar Neurologic No dizziness 10/28/2014 Neurologic No headache 0 10/28/2014 Neurologic No neck pain 10/28/2014 Neurologic No syncope Psychiatric No anxiety 0 10/28/2014 Psychiatric No depression 10/28/2014 Physical Exam Exam Name System Name It em Name Status Result Effective Dates Notes Full Exam - ENT Constitutional general appearance Overall: well nourished 10/23/2018 None Full Exam - ENT Constitutional general appearance Overall: well developed 10/23/2018 None Full Exam - ENT Constitutional general appearance Overall: in no acute distress 10/23/2018 None Full Exam - ENT Ears/Nose/Throat nasal mucosa, septum, turbinates Drainage: clear 10/23/2018 None Full Exam - ENT Ears/Nose/Throat nasal mucosa, septum, turbinates Drainage: yellow 10/23/2018 None Full Exam - ENT Ears/Nose/Throat lips/teeth/gingiva Overall: benign lips 10/23/2018 None Full Exam - ENT Ears/Nose/Throat oropharynx Posterior Pharynx: clear post nasal drainage 10/23/2018 None Full Exam - ENT Respiratory inspection Overall: no retractions 10/23/2018 None Full Exam - ENT Respiratory inspection Overall: normal rate None Full Exam - ENT Respiratory auscultation Overall: breath sounds clear bilater ally 10/23/2018 None Full Exam - ENT Cardiovascular auscultation of heart Overall: regular rate 10/23/2018 None Full Exam - ENT Cardiovascular auscultation of heart Overall: normal heart sounds 10/23/2018 None Full Exam - ENT Lymphatic palpation of lymph nodes Overall: anterior cervical chain benign 10/23/2018 None Full Exam - ENT Lymphatic palpation of lymph nodes Overall: posterior cervical chain benign 10/23/2018 None Full Exam - ENT Neurologic mood and affect Overall: normal mood 10/23/2018 None Full Exam - ENT Neurologic mood and affect Overall: normal affect 10/23/2018 None Full Exam - ENT Neurologic orientation Overall: oriented to person, place a nd time 10/23/2018 None Full Exam - ENT Ears/Nose/Throat otoscopic exam Left external auditory canal: comple te cerumen impaction 10/23/2018 None Full Exam - ENT Ears/Nose/Throat otoscopic exam Right external auditory canal: compl ete cerumen impaction 10/23/2018 None Full Exam - General 1994 Constitutional general appearance Overall: well developed 09/13/2018 None Full Exam - General 1994 Constitutional general appearance Overall: in no acute distress 09/13/2018 None Full Exam - General 1994 Constitutional general appearance Overall: well nourished 09/13/2018 None Full Exam - General 1994 Eyes conjunctiva/eyelids Overall: conjunctiva clear 09/13/2018 None Full Exam - General 1994 Eyes conjunctiva/eyelids Overall: cornea clear 09/13/2018 None Full Exam - General 1994 Eyes conjunctiva/eyelids Overall: eyelids normal 09/13/2018 None Full Exam - General 1994 Ears/Nose/Throat lips/teeth/gingiva Overall: benign lips 09/13/2018 None Full Exam - General 1994 Ears/Nose/Throat oral cavity/pharynx/larynx Overall: oral mucosa clear 09/13/2018 None Full Exam - General 1994 Respiratory auscultation Overall: breath sounds clear bilaterally 09/13/2018 None Full Exam - General 1994 Respiratory respiratory effort/rhythm Overall: no retractions 09/13/2018 None Full Exam - General 1994 Respiratory respiratory effort/rhythm Overall: normal rate 09/13/2018 None Full Exam - General 1994 Cardiovascular auscultation of heart Overall: regular rate 09/13/2018 None Full Exam - General 1994 Cardiovascular auscultation of heart Overall: normal heart sounds 09/13/2018 None Full Exam - General 1994 Abdomen abdominal exam Bowel sounds: hyperactive 09/13/2018 None Full Exam - General 1994 Abdomen abdominal exam Epigastric: tender to palpation 09/13/2018 None Full Exam - General 1994 Abdomen abdominal exam Epigastric: dull pain 09/13/2018 None Full Exam - General 1994 Abdomen abdominal exam Epigastric: no guarding 09/13/2018 None Full Exam - General 1994 Abdomen abdominal exam Epigastric: no rebound tenderness 09/13/2018 None Full Exam - General 1994 Abdomen abdominal exam Epigastric: soft 09/13/2018 None Full Exam - General 1994 Musculoskeletal head and neck Overall: head atraumatic 09/13/2018 None Full Exam - General 1994 Neurologic cranial nerves Overall: crainial nerves 2 - 12 grossly intact 09/13/2018 None Full Exam - General 1994 Psychiatric orientation/consciousness Overall: oriented to person, place and time 09/13/2018 None Full Exam - General 1994 Psychiatric mood and affect Overall: normal mood and affect 09/13/2018 None Full Exam - General 1994 Constitutional general appearance Overall: well developed 11/30/2017 None Full Exam - General 1994 Constitutional general appearance Overall: in no acute distress 11/30/2017 None Full Exam - General 1994 Constitutional general appearance Overall: well nourished 11/30/2017 None Full Exam - General 1994 Eyes conjunctiva/eyelids Overall: conjunctiva clear 11/30/2017 None Full Exam - General 1994 Eyes conjunctiva/eyelids Overall: cornea clear 11/30/2017 None Full Exam - General 1994 Eyes conjunctiva/eyelids Overall: eyelids normal 11/30/2017 None Full Exam - General 1994 Eyes pupils and irises Overall: pupils equal, round, reactive to light and accomodation 11/30/2017 None Full Exam - General 1994 Ears/Nose/Throat otoscopic exam Overall: tympanic membranes clear 11/30/2017 None Full Exam - General 1994 Ears/Nose/Throat otoscopic exam Overall: external auditory canals clear 11/30/2017 None Full Exam - General 1994 Ears/Nose/Throat oral cavity/pharynx/larynx Overall: oral mucosa clear 11/30/2017 None Full Exam - General 1994 Ears/Nose/Throat oral cavity/pharynx/larynx Overall: oropharyngeal mucosa clear 11/30/2017 None Full Exam - General 1994 Ears/Nose/Throat lips/teeth/gingiva Overall: benign lips 11/30/2017 None Full Exam - General 1994 Respiratory respiratory effort/rhythm Overall: normal rate 11/30/2017 None Full Exam - General 1994 Respiratory respiratory effort/rhythm Overall: no retractions 11/30/2017 None Full Exam - General 1994 Respiratory auscultation Overall: breath sounds clear bilaterally 11/30/2017 None Full Exam - General 1994 Cardiovascular auscultation of heart Overall: normal heart sounds 11/30/2017 None Full Exam - General 1994 Cardiovascular auscultation of heart Overall: regular rate 11/30/2017 None Full Exam - General 1994 Musculoskeletal head and neck Overall: head atraumatic 11/30/2017 None Full Exam - General 1994 Musculoskeletal gait and station Overall: normal gait 11/30/2017 None Full Exam - General 1994 Musculoskeletal gait and station Overall: normal station 11/30/2017 None Full Exam - General 1994 Neurologic cranial nerves Overall: crainial nerves 2 - 12 grossly intact 11/30/2017 None Full Exam - General 1994 Psychiatric orientation/consciousness Overall: oriented to person, place and time 11/30/2017 None Full Exam - General 1994 Psychiatric mood and affect Overall: normal mood and affect 11/30/2017 None Full Exam - General 1994 Psychiatric appearance Overall: well-groomed, good eye contact 11/30/2017 None Full Exam - General 1994 Constitutional general appearance Overall: well developed 05/17/2017 None Full Exam - General 1995 Constitutional general appearance Overall: in no acute distress 05/17/2017 None Full Exam - General 1994 Constitutional general appearance Overall: well nourished 05/17/2017 None Full Exam - General 1995 Eyes conjunctiva/eyelids Overall: conjunctiva clear 05/17/2017 None Full Exam - General 1995 Eyes conjunctiva/eyelids Overall: eyelids normal 05/17/2017 None Full Exam - General 1994 Ears/Nose/Throat lips/teeth/gingiva Overall: benign lips 05/17/2017 None Full Exam - General 1994 Respiratory respiratory effort/rhythm Overall: no retractions 05/17/2017 None Full Exam - General 1994 Respiratory respiratory effort/rhythm Overall: normal rate 05/17/2017 None Full Exam - General 1994 Musculoskeletal head and neck Overall: head atraumatic 05/17/2017 None Full Exam - General 1994 Neurologic cranial nerves Overall: crainial nerves 2 - 12 grossly intact 05/17/2017 None Full Exam - General 1994 Psychiatric orientation/consciousness Overall: oriented to person, place and time 05/17/2017 None Full Exam - General 1994 Psychiatric mood and affect Overall: normal mood and affect 05/17/2017 None Full Exam - General 1994 Psychiatric appearance Overall: well-groomed, good eye contact 05/17/2017 None Full Exam - General 1994 Constitutional general appearance Overall: well developed 05/12/2016 None Full Exam - General 1994 Constitutional general appearance Overall: in no acute distress 05/12/2016 None Full Exam - General 1994 Constitutional general appearance Overall: well nourished 05/12/2016 None Full Exam - General 1994 Eyes conjunctiva/eyelids Overall: conjunctiva clear 05/12/2016 None Full Exam - General 1994 Eyes conjunctiva/eyelids Overall: eyelids normal 05/12/2016 None Full Exam - General 1994 Eyes pupils and irises Overall: pupils equal, round, reactive to light and accomodation 05/12/2016 None Full Exam - General 1994 Ears/Nose/Throat lips/teeth/gingiva Overall: benign lips 05/12/2016 None Full Exam - General 1995 Ears/Nose/Throat oral cavity/pharynx/larynx Overall: oral mucosa clear 05/12/2016 None Full Exam - General 1994 Respiratory auscultation Overall: breath sounds clear bilaterally 05/12/2016 None Full Exam - General 1994 Respiratory respiratory effort/rhythm Overall: no retractions 05/12/2016 None Full Exam - General 1994 Respiratory respiratory effort/rhythm Overall: normal rate 05/12/2016 None Full Exam - General 1994 Cardiovascular extremities Overall: no clubbing 05/12/2016 None Full Exam - General 1994 Cardiovascular auscultation of heart Overall: regular rate 05/12/2016 None Full Exam - General 1994 Cardiovascular auscultation of heart Overall: normal heart sounds 05/12/2016 None Full Exam - General 1994 Abdomen abdominal exam Overall: no tenderness 05/12/2016 None Full Exam - General 1994 Abdomen abdominal exam Overall: normal bowel sounds 05/12/2016 None Full Exam - General 1994 Musculoskeletal head and neck Overall: head atraumatic 05/12/2016 None Full Exam - General 1994 Psychiatric orientation/consciousness Overall: oriented to person, place and time 05/12/2016 None Full Exam - General 1994 Psychiatric mood and affect Overall: normal mood and affect 05/12/2016 None Full Exam - General 1994 Psychiatric appearance Overall: well-groomed, good eye contact 05/12/2016 None Full Exam - General 1994 Ears/Nose/Throat otoscopic exam Overall: external auditory canals clear 05/12/2016 None Full Exam - General 1994 Ears/Nose/Throat otoscopic exam Overall: tympanic membranes clear 05/12/2016 None Full Exam - General 1994 Ears/Nose/Throat oral cavity/pharynx/larynx Posterior Pharynx: clear post nasal drainage 05/12/2016 None Full Exam - General 1994 Integument inspection of skin Location: right arm 05/12/2016 forearm Full Exam - General 1994 Integument inspection of skin Rash/Lesions: papule 05/12/2016 irritated skin lesion - u nhealing Full Exam - Orthopedics Constitutional general appearance Overall: well nourished 02/17/2016 None Full Exam - Orthopedics Constitutional general appearance Overall: well developed 02/17/2016 None Full Exam - Orthopedics Constitutional general appearance Overall: in no acute distress 02/17/2016 None Full Exam - Orthopedics Eyes conjunctiva/eyelids Overall: conjunctiva clear 02/17/2016 None Full Exam - Orthopedics Eyes conjunctiva/eyelids Overall: eyelids normal 02/17/2016 None Full Exam - Orthopedics Ears/Nose/Throat lips/teeth/gingiva Overall: benign lips 02/17/2016 None Full Exam - Orthopedics Ears/Nose/Throat oral cavity/pharynx/larynx Overall: oral mucosa clear 02/17/2016 None Full Exam - Orthopedics Respiratory respiratory effort/rhythm Overall: no retractions 02/17/2016 None Full Exam - Orthopedics Respiratory respiratory effort/rhythm Overall: normal rate 02/17/2016 None Full Exam - Orthopedics MS: right lo wer extremity insp & palp - RLE Knee: joint swelling 02/17/2016 None Full Exam - Orthopedics MS: right lo wer extremity insp & palp - RLE Knee: joint tenderness 02/17/2016 None Full Exam - Orthopedics MS: right lo wer extremity range of motion - RLE Knee: pain with flexion 02/17/2016 None Full Exam - Orthopedics MS: right lo wer extremity range of motion - RLE Knee: pain with extension 02/17/2016 None Full Exam - Orthopedics Psychiatric orientation/consciousness Overall: oriented to person, place and time 02/17/2016 None Full Exam - Orthopedics Psychiatric mood and affect Overall: normal mood and affect 02/17/2016 None Full Exam - Orthopedics Psychiatric appearance Overall: well-groomed, good eye contact 02/17/2016 None Full Exam - General 1994 Constitutional general appearance Development: well developed 04/14/2015 None Full Exam - General 1994 Constitutional general appearance Development: appears stated age 0204/14/2015 None Full Exam - General 1994 Constitutional general appearance Hygiene/Attention to Grooming: good hygiene 04/14/2015 None Full Exam - General 1994 Eyes conjunctiva/eyelids Overall: conjunctiva clear 04/14/2015 None Full Exam - General 1994 Eyes conjunctiva/eyelids Overall: cornea clear 04/14/2015 None Full Exam - General 1994 Eyes conjunctiva/eyelids Overall: eyelids normal 04/14/2015 None Full Exam - General 1994 Eyes pupils and irises Overall: pupils equal, round, reactive to light and accomodation 04/14/2015 None Full Exam - General 1994 Ears/Nose/Throat otoscopic exam Overall: external auditory canals clear 04/14/2015 None Full Exam - General 1994 Ears/Nose/Throat otoscopic exam Overall: tympanic membranes clear 04/14/2015 None Full Exam - General 1994 Ears/Nose/Throat lips/teeth/gingiva Overall: benign lips 04/14/2015 None Full Exam - General 1994 Ears/Nose/Throat lips/teeth/gingiva Overall: normal dentition 04/14/2015 None Full Exam - General 1994 Ears/Nose/Throat oral cavity/pharynx/larynx Overall: oral mucosa clear 04/14/2015 None Full Exam - General 1994 Ears/Nose/Throat oral cavity/pharynx/larynx Overall: oropharyngeal mucosa clear 04/14/2015 None Full Exam - General 1994 Ears/Nose/Throat oral cavity/pharynx/larynx Overall: hypopharynx benign 04/14/2015 None Full Exam - General 1994 Ears/Nose/Throat oral cavity/pharynx/larynx Overall: no masses 04/14/2015 None Full Exam - General 1994 Respiratory auscultation Overall: breath sounds clear bilaterally 04/14/2015 None Full Exam - General 1994 Respiratory respiratory effort/rhythm Overall: no retractions 04/14/2015 None Full Exam - General 1994 Respiratory respiratory effort/rhythm Overall: normal rate 04/14/2015 None Full Exam - General 1994 Cardiovascular extremities Overall: no clubbing 04/14/2015 None Full Exam - General 1994 Cardiovascular auscultation of heart Overall: regular rate 04/14/2015 None Full Exam - General 1994 Cardiovascular auscultation of heart Overall: normal heart sounds 04/14/2015 None Full Exam - General 1994 Abdomen abdominal exam Overall: no tenderness 04/14/2015 None Full Exam - General 1994 Abdomen abdominal exam Overall: normal bowel sounds 04/14/2015 None Full Exam - General 1994 Musculoskeletal spine, ribs and pelvis Overall: spine benign 04/14/2015 None Full Exam - General 1994 Musculoskeletal spine, ribs and pelvis Overall: sacroiliac joint benign 04/14/2015 None Full Exam - General 1994 Musculoskeletal head and neck Overall: head atraumatic 04/14/2015 None Full Exam - General 1994 Integument inspection of skin Overall: few scattered moles, no gross abnormalities 04/14/2015 None Full Exam - General 1994 Neurologic cranial nerves Overall: crainial nerves 2 - 12 grossly intact 04/14/2015 None Full Exam - General 1994 Psychiatric orientation/consciousness Overall: oriented to person, place and time 04/14/2015 None Full Exam - General 1994 Psychiatric mood and affect Overall: normal mood and affect 04/14/2015 None Full Exam - General 1994 Neurologic deep tendon reflexes Overall: deep tendon reflexes intact 04/14/2015 None Full Exam - General 1994 Constitutional general appearance Development: well developed 12/23/2014 None Full Exam - General 1994 Constitutional general appearance Development: appears stated age 1012/23/2014 None Full Exam - General 1994 Constitutional general appearance Hygiene/Attention to Grooming: good hygiene 12/23/2014 None Full Exam - General 1994 Eyes conjunctiva/eyelids Overall: conjunctiva clear 12/23/2014 None Full Exam - General 1994 Eyes conjunctiva/eyelids Overall: cornea clear 12/23/2014 None Full Exam - General 1994 Eyes conjunctiva/eyelids Overall: eyelids normal 12/23/2014 None Full Exam - General 1994 Eyes pupils and irises Overall: pupils equal, round, reactive to light and accomodation 12/23/2014 None Full Exam - General 1994 Ears/Nose/Throat otoscopic exam Overall: external auditory canals clear 12/23/2014 None Full Exam - General 1994 Ears/Nose/Throat otoscopic exam Overall: tympanic membranes clear 12/23/2014 None Full Exam - General 1994 Ears/Nose/Throat lips/teeth/gingiva Overall: benign lips 12/23/2014 None Full Exam - General 1994 Ears/Nose/Throat lips/teeth/gingiva Overall: normal dentition 12/23/2014 None Full Exam - General 1994 Ears/Nose/Throat oral cavity/pharynx/larynx Overall: oral mucosa clear 12/23/2014 None Full Exam - General 1994 Ears/Nose/Throat oral cavity/pharynx/larynx Overall: oropharyngeal mucosa clear 12/23/2014 None Full Exam - General 1994 Ears/Nose/Throat oral cavity/pharynx/larynx Overall: hypopharynx benign 12/23/2014 None Full Exam - General 1994 Ears/Nose/Throat oral cavity/pharynx/larynx Overall: no masses 12/23/2014 None Full Exam - General 1994 Respiratory auscultation Overall: breath sounds clear bilaterally 12/23/2014 None Full Exam - General 1994 Respiratory respiratory effort/rhythm Overall: no retractions 12/23/2014 None Full Exam - General 1994 Respiratory respiratory effort/rhythm Overall: normal rate 12/23/2014 None Full Exam - General 1994 Cardiovascular extremities Overall: no clubbing 12/23/2014 None Full Exam - General 1994 Cardiovascular auscultation of heart Overall: regular rate 12/23/2014 None Full Exam - General 1994 Cardiovascular auscultation of heart Overall: normal heart sounds 12/23/2014 None Full Exam - General 1994 Abdomen abdominal exam Overall: no tenderness 12/23/2014 None Full Exam - General 1994 Abdomen abdominal exam Overall: normal bowel sounds 12/23/2014 None Full Exam - General 1994 Musculoskeletal spine, ribs and pelvis Overall: spine benign 12/23/2014 None Full Exam - General 1994 Musculoskeletal spine, ribs and pelvis Overall: sacroiliac joint benign 12/23/2014 None Full Exam - General 1994 Musculoskeletal head and neck Overall: head atraumatic 12/23/2014 None Full Exam - General 1994 Integument inspection of skin Overall: few scattered moles, no gross abnormalities 12/23/2014 None Full Exam - General 1994 Neurologic cranial nerves Overall: crainial nerves 2 - 12 grossly intact 12/23/2014 None Full Exam - General 1994 Psychiatric orientation/consciousness Overall: oriented to person, place and time 12/23/2014 None Full Exam - General 1994 Psychiatric mood and affect Overall: normal mood and affect 12/23/2014 None Full Exam - General 1994 Constitutional general appearance Development: well developed 10/28/2014 None Full Exam - General 1994 Constitutional general appearance Development: appears stated age 0810/28/2014 None Full Exam - General 1994 Constitutional general appearance Hygiene/Attention to Grooming: good hygiene 10/28/2014 None Full Exam - General 1994 Eyes conjunctiva/eyelids Overall: conjunctiva clear 10/28/2014 None Full Exam - General 1994 Eyes conjunctiva/eyelids Overall: cornea clear 10/28/2014 None Full Exam - General 1994 Eyes conjunctiva/eyelids Overall: eyelids normal 10/28/2014 None Full Exam - General 1994 Eyes pupils and irises Overall: pupils equal, round, reactive to light and accomodation 10/28/2014 None Full Exam - General 1994 Ears/Nose/Throat otoscopic exam Overall: external auditory canals clear 10/28/2014 None Full Exam - General 1994 Ears/Nose/Throat otoscopic exam Overall: tympanic membranes clear 10/28/2014 None Full Exam - General 1994 Ears/Nose/Throat lips/teeth/gingiva Overall: benign lips 10/28/2014 None Full Exam - General 1994 Ears/Nose/Throat lips/teeth/gingiva Overall: normal dentition 10/28/2014 None Full Exam - General 1994 Ears/Nose/Throat oral cavity/pharynx/larynx Overall: oral mucosa clear 10/28/2014 None Full Exam - General 1994 Ears/Nose/Throat oral cavity/pharynx/larynx Overall: oropharyngeal mucosa clear 10/28/2014 None Full Exam - General 1994 Ears/Nose/Throat oral cavity/pharynx/larynx Overall: hypopharynx benign 10/28/2014 None Full Exam - General 1994 Ears/Nose/Throat oral cavity/pharynx/larynx Overall: no masses 10/28/2014 None Full Exam - General 1994 Respiratory auscultation Overall: breath sounds clear bilaterally 10/28/2014 None Full Exam - General 1994 Respiratory respiratory effort/rhythm Overall: no retractions 10/28/2014 None Full Exam - General 1994 Respiratory respiratory effort/rhythm Overall: normal rate 10/28/2014 None Full Exam - General 1994 Cardiovascular extremities Overall: no clubbing 10/28/2014 None Full Exam - General 1994 Cardiovascular auscultation of heart Overall: regular rate 10/28/2014 None Full Exam - General 1994 Cardiovascular auscultation of heart Overall: normal heart sounds 10/28/2014 None Full Exam - General 1994 Abdomen abdominal exam Overall: no tenderness 10/28/2014 None Full Exam - General 1994 Abdomen abdominal exam Overall: normal bowel sounds 10/28/2014 None Full Exam - General 1994 Lymphatic neck nodes Overall: anterior cervical chain benign 10/28/2014 None Full Exam - General 1994 Lymphatic neck nodes Overall: posterior cervical chain benign 10/28/2014 None Full Exam - General 1994 Musculoskeletal spine, ribs and pelvis Overall: spine benign 10/28/2014 None Full Exam - General 1994 Musculoskeletal spine, ribs and pelvis Overall: sacroiliac joint benign 10/28/2014 None Full Exam - General 1994 Musculoskeletal spine, ribs and pelvis Overall: good posture 10/28/2014 None Full Exam - General 1994 Musculoskeletal head and neck Overall: head atraumatic 10/28/2014 None Full Exam - General 1994 Musculoskeletal head and neck Overall: cervical spine benign 10/28/2014 None Full Exam - General 1994 Integument inspection of skin Overall: few scattered moles, no gross abnormalities 10/28/2014 None Full Exam - General 1994 Neurologic deep tendon reflexes Overall: deep tendon reflexes intact 10/28/2014 None Full Exam - General 1994 Neurologic cranial nerves Overall: crainial nerves 2 - 12 grossly intact 10/28/2014 None Full Exam - General 1994 Psychiatric orientation/consciousness Overall: oriented to person, place and time 10/28/2014 None Full Exam - General 1994 Psychiatric mood and affect Overall: normal mood and affect 10/28/2014 None Procedures Procedure Codes Date THER/PROPH/DIAG INJ SC/IM CPT-4: 88048 10/30/2018 TRIAMCINOLONE ACET I [place] NOS CPT-4: J3301 10/30/2018 PPPS, SUBSEQ VISIT CPT- 4: G0439 05/17/2017 PPPS, SUBSEQ VISIT CPT- 4: G0439 05/12/2016 INITIAL PREVENTIVE EXAM CPT-4: G0402 04/14/2015 Vital Signs Date Vital 10/23/2018 Blood Pressure 1: 140/72 Code: 8480-6 Heart Rate 1: 97 bpm Height: 5'2" SpO2: 77% Weight: 09/13/2018 Blood Pressure 1: 142/76 Code: 8480-6 BMI: 34.6 Code: 70853-2 Heart Rate 1: 84 bpm Height: 5'2" SpO2: 97% Weight: 189 lbs 11/30/2017 Blood Pressure 1: 146/70 Code: 8480-6 BMI: 32.4 Code: 82431-0 Heart Rate 1: 77 bpm Height: 5'2" SpO2: 97% Weight: 177 lbs 05/17/2017 Blood Pressure 1: 128/60 Code: 8480-6 BMI: 34.2 Code: 39742-7 Heart Rate 1: 91 bpm Height: 5'2" SpO2: 97% Waist Measure (cm): 84 cm Weight: 187 lbs 05/12/2016 Blood Pressure 1: 144/62 Code: 8480-6 BMI: 34.2 Code: 29707-9 Heart Rate 1: 83 bpm Height: 5'2" SpO2: 98% Waist Measure (cm): 97 cm Weight: 187 lbs 02/17/2016 Blood Pressure 1: 158/76 Code: 8480-6 BMI: 34.4 Code: 05205-4 Heart Rate 1: 82 bpm Height: 5'2" SpO2: 97% Weight: 188 lbs 04/14/2015 Blood Pressure 1: 132/60 Code: 8480-6 BMI: 32.0 Code: 67409-8 Heart Rate 1: 79 bpm Height: 5'2" SpO2: 97% Waist Measure (cm): 102 cm Weight: 175 lbs 12/23/2014 Blood Pressure 1: 128/72 Code: 8480-6 BMI: 31.1 Code: 44263-1 Heart Rate 1: 75 bpm Height: 5'2" SpO2: 98% Weight: 170 lbs 10/28/2014 Blood Pressure 1: 122/62 Code: 8480-6 BMI: 30.4 Code: 96357-8 Heart Rate 1: 83 bpm Height: 5'2" SpO2: 98% Weight: 166 lbs Functional Status No Functional Status data History of Present Illness Symptom Name Status Resu lt Effective Date Notes Location both ears 10/23/2018 None Quality worsening 10/23/2018 None Onset and Resolution s udden in onset 10/23/2018 None Onset of Symptom 6 day s ago 10/23/2018 None Frequency of Episodes daily 10/23/2018 None Location frontal sinuses 10/23/2018 None Quality constant 10/23/2018 None Onset and Resolution s udden in onset 10/23/2018 None Onset of Symptom 6 day s ago 10/23/2018 None Frequency of Episodes daily 10/23/2018 None Pertinent Findings cough 10/23/2018 None Location in the epig[place] area 09/13/2018 None Quality burning 09/13/2018 None Quality aching 09/13/2018 None Onset and Resolution s udden in onset 09/13/2018 None Onset of Symptom _ festus rs ago 09/13/2018 None Pertinent Findings harjit k pain 09/13/2018 None Pertinent Findings maria an[place]ia sea 09/13/2018 None Pertinent Findings vom iting 09/13/2018 None medication follow up Additional Comments medication use 11/30/2017 None medication follow up Location oral intake 11/30/2017 None medication follow up Quality chronic 11/30/2017 None Annual Medicare Wellness Exam Alcohol Use drinks 4 days per week 05/17/2017 None Annual Medicare Wellness Exam Alcohol Use more than 5 drinks on one occasion _ 05/17/2017 None Annual Medicare Wellness Exam Aspirin Use no 05/17/2017 None Annual Medicare Wellness Exam Blood Glucose (self reported) don't know 05/17/2017 No ne Annual Medicare Wellness Exam Blood Pressure (self reported) low / normal (120/80) 05/17/2017 None Annual Medicare Wellness Exam Choles terol (self reported) desireable (below 200) 05/17/2017 None Annual Medicare Wellness Exam Depres tadeo (last 6 months) some of the time 05/17/2017 None Annual Medicare Wellness Exam Depres tadeo or Hopelessness some of the time 05/17/2017 None Annual Medicare Wellness Exam Descri be Your Health very good 05/17/2017 Non e Annual Medicare Wellness Exam Exerci se Habits exercises 3 days per week 05/17/2017 None Annual Medicare Wellness Exam Exerci se Habits exercises 40 minutes per day 05/17/2017 None Annual Medicare Wellness Exam Handli ng Stress usually osiel effectively 05/17/2017 None Annual Medicare Wellness Exam Hemagl obin A-1C (self reported) don't know 05/17/2017 No ne Annual Medicare Wellness Exam Hours of Sleep 6 05/17/2017 None Annual Medicare Wellness Exam Intera ction with Friends yes 05/17/2017 None Annual Medicare Wellness Exam Intere sts & Pleasure almost all of the time 05/17/2017 None Annual Medicare Wellness Exam Life S atisfaction very satisfied 05/17/2017 None Annual Medicare Wellness Exam Motor Vehicle Safety always fastens seat belt: y 05/18/19 18 None Annual Medicare Wellness Exam Motor Vehicle Safety drives after drinking: n 05/17/2017 None Annual Medicare Wellness Exam Motor Vehicle Safety rides with someone who has been drinking: y 05/17/2017 None Annual Medicare Wellness Exam Nutrition servings of fried food / high fat foods per day: 0 05/17/2017 None Annual Medicare Wellness Exam Nutrition servings of high fiber / whole grain per day: 2 05/17/2017 None Annual Medicare Wellness Exam Nutrition servings of vegetables / fruit per day: 5 05/17/2017 None Annual Medicare Wellness Exam Smokin g and Tobacco Use non smoker 05/17/2017 No ne Annual Medicare Wellness Exam Social & Emotional Support always 05/17/2017 None Annual Medicare Wellness Exam Stress almost never 05/17/2017 None Annual Medicare Wellness Exam Sun Exposure protects skin when outdoors: y 05/17/2017 None Annual Medicare Wellness Exam Alcohol Use drinks 1 drinks per day 05/12/2016 None Annual Medicare Wellness Exam Aspirin Use no 05/12/2016 None Annual Medicare Wellness Exam Blood Glucose (self reported) don't know 05/12/2016 No ne Annual Medicare Wellness Exam Blood Pressure (self reported) low / normal (120/80) 05/12/2016 None Annual Medicare Wellness Exam Choles terol (self reported) desireable (below 200) 05/12/2016 None Annual Medicare Wellness Exam Depres tadeo (last 6 months) most of the time 05/12/2016 None Annual Medicare Wellness Exam Depres tadeo or Hopelessness some of the time 05/12/2016 None Annual Medicare Wellness Exam Descri be Your Health good 05/12/2016 None Annual Medicare Wellness Exam Exerci se Habits does not exercise 05/12/2016 None Annual Medicare Wellness Exam Handli ng Stress usually osiel effectively 05/12/2016 None Annual Medicare Wellness Exam Hemagl obin A-1C (self reported) don't know 05/12/2016 No ne Annual Medicare Wellness Exam Hours of Sleep 6 05/12/2016 None Annual Medicare Wellness Exam Intera ction with Friends yes 05/12/2016 None Annual Medicare Wellness Exam Intere sts & Pleasure some of the time 05/12/2016 None Annual Medicare Wellness Exam Life S atisfaction satisfied 05/12/2016 Non e Annual Medicare Wellness Exam Motor Vehicle Safety always fastens seat belt: _ 05/13/19 17 None Annual Medicare Wellness Exam Motor Vehicle Safety drives after drinking: y 05/12/2016 None Annual Medicare Wellness Exam Motor Vehicle Safety rides with someone who has been drinking: y 05/12/2016 None Annual Medicare Wellness Exam Nutrition servings of fried food / high fat foods per day: 2 05/12/2016 None Annual Medicare Wellness Exam Nutrition servings of high fiber / whole grain per day: 2 05/12/2016 None Annual Medicare Wellness Exam Nutrition servings of vegetables / fruit per day: 1 05/12/2016 None Annual Medicare Wellness Exam Smokin g and Tobacco Use non smoker 05/12/2016 No ne Annual Medicare Wellness Exam Social & Emotional Support usually 05/12/2016 None Annual Medicare Wellness Exam Stress almost never 05/12/2016 None Annual Medicare Wellness Exam Sun Exposure protects skin when outdoors: y 05/12/2016 None knee pain Location on th e right 02/17/2016 None knee pain Quality giving way 02/17/2016 None knee pain Quality popping 02/17/2016 None knee pain Quality tender ness 02/17/2016 None knee pain Quality consta nt 02/17/2016 None knee pain Onset and Resolution sudden in onset 02/17/2016 None knee pain Onset of Symptom 4 days ago 02/17/2016 None knee pain Frequency of Episodes daily 02/17/2016 None knee pain Mechanism of injury unknown 02/17/2016 None Annual Medicare Wellness Exam Alcohol Use drinks 3 days per week 04/14/2015 None Annual Medicare Wellness Exam Aspirin Use no 04/14/2015 None Annual Medicare Wellness Exam Blood Glucose (self reported) don't know 04/14/2015 No ne Annual Medicare Wellness Exam Blood Pressure (self reported) low / normal (120/80) 04/14/2015 None Annual Medicare Wellness Exam Choles terol (self reported) don't know 04/14/2015 No ne Annual Medicare Wellness Exam Depres tadeo (last 6 months) some of the time 04/14/2015 None Annual Medicare Wellness Exam Depres tadeo or Hopelessness almost never 04/14/2015 None Annual Medicare Wellness Exam Descri be Your Health very good 04/14/2015 Non e Annual Medicare Wellness Exam Exerci se Habits does not exercise 04/14/2015 None Annual Medicare Wellness Exam Handli ng Stress usually osiel effectively 04/14/2015 None Annual Medicare Wellness Exam Hemagl obin A-1C (self reported) don't know 04/14/2015 No ne Annual Medicare Wellness Exam Hours of Sleep 6 04/14/2015 None Annual Medicare Wellness Exam Intera ction with Friends yes 04/14/2015 None Annual Medicare Wellness Exam Intere sts & Pleasure most of the time 04/14/2015 None Annual Medicare Wellness Exam Life S atisfaction satisfied 04/14/2015 Non e Annual Medicare Wellness Exam Motor Vehicle Safety always fastens seat belt: _ 04/14/19 16 None Annual Medicare Wellness Exam Motor Vehicle Safety drives after drinking: y 04/14/2015 None Annual Medicare Wellness Exam Motor Vehicle Safety rides with someone who has been drinking: y 04/14/2015 None Annual Medicare Wellness Exam Nutrition servings of fried food / high fat foods per day: 1 04/14/2015 None Annual Medicare Wellness Exam Nutrition servings of high fiber / whole grain per day: 2 04/14/2015 None Annual Medicare Wellness Exam Nutrition servings of vegetables / fruit per day: 3 04/14/2015 None Annual Medicare Wellness Exam Social & Emotional Support always 04/14/2015 None Annual Medicare Wellness Exam Stress almost never 04/14/2015 None Annual Medicare Wellness Exam Sun Exposure protects skin when outdoors: y 04/14/2015 None Annual Medicare Wellness Exam Smokin g and Tobacco Use non smoker 04/14/2015 No ne vertigo Quality intermit tent 12/23/2014 None vertigo Onset of Symptom 1 months ago 12/23/2014 None vertigo Onset and Resolution sudden in onset 12/23/2014 None vertigo Frequency of Episodes weekly 12/23/2014 None vertigo Pertinent Findings dizziness 12/23/2014 None vertigo Pertinent Findings lightheadedness 12/23/2014 None dizziness Exacerbating Factors position change 12/23/2014 None dizziness Exacerbating Factors turning the head 12/23/2014 None dizziness Frequency of Episodes weekly 12/23/2014 None dizziness Quality acute 12/23/2014 None dizziness Quality interm ittent 12/23/2014 None dizziness Quality lighth eadedness 12/23/2014 None dizziness Quality sense of motion 12/23/2014 None dizziness Triggers head turning 12/23/2014 None dizziness Pertinent Findings lightheadedness 12/23/2014 None dizziness Quality sense of room spinning 12/23/2014 None dizziness Timing of Episodes at night 12/23/2014 None dizziness Triggers posit ion change 12/23/2014 None dizziness Alleviating Factors rest 12/23/2014 None dizziness Pertinent Findings Denies blurred vision 12/23/2014 None dizziness Pertinent Findings Denies confusion 12/23/2014 None dizziness Pertinent Findings Denies double vision 12/23/2014 None dizziness Pertinent Findings Denies fever 12/23/2014 None dizziness Pertinent Findings Denies imbalance 12/23/2014 None dizziness Pertinent Findings Denies palpitations 12/23/2014 None dizziness Pertinent Findings Denies problems with coordination 12/23/2014 None dizziness Pertinent Findings Denies syncope 12/23/2014 None dizziness Pertinent Findings Denies vomiting 12/23/2014 None depression Quality inter mittent 10/28/2014 None depression Onset and Resolution ongoing 10/28/2014 None depression Pertinent Findings anxiety 10/28/2014 None gastroesophageal reflux Quality stable 10/28/2014 None gastroesophageal reflux Onset and Re solution ongoing 10/28/2014 None gastroesophageal reflux Pertinent Findings Denies heartburn 10/28/2014 None Advance Directives No Advance Directive data Encounters Encounter Performer Loca tion Codes Date 20917 EST. PATIENT, LEVEL IV Diagnosis: Other acute sinusitis[ICD10: J01.80] Diagnosis: Other allergic rhinitis[ICD10: J30.89] Diagnosis: Impacted cerumen, bilateral[ICD10: H61.23] [facility] CPT-4: 98718 10/23/2018 11459 EST. PATIENT, LEVEL IV Diagnosis: Gastro-esophageal reflux disease without esophagitis[ICD10: K21.9] [facility] CPT-4: 58018 09/13/2018 88333 EST. PATIENT, LEVEL III Diagnosis: Gastro-esophageal reflux disease without esophagitis[ICD10: K21.9] Diagnosis: Generalized anxiety disorder[ICD10: F41.1] Diagnosis: Major depressive disorder, single episode, moderate[ICD10: F32.1] Diagnosis: Thalassemia minor[ICD10: D56.3] Cayla Najera MD, [facility] CPT-4: 11404 11/30/2017 08374 EST. PATIENT, LEVEL III Diagnosis: Pain in right knee[ICD10: M25.561] Cayla Najera MD, [facility] CPT-4: 21266 02/17/2016 87126 EST. PATIENT, LEVEL III Diagnosis: Benign paroxysmal vertigo, unspecified ear[ICD10: H81.10] Anita Najera MD, [facility] CPT-4: 75918 12/23/2014 ([id number]) PREV VISIT N EW AGE 40-64 Diagnosis: Routine medical exam[ICD9: V70.0] Anita Najera MD, [facility] CPT-4: 86371 10/28/2014 Plan of Care Planned Activity Notes C odes Status Date Patient Education: Patient Medication Summary Completed 10/30/2018 Visit Plan: Sinusitis - Pt has acut e infection - pain in face, maxillary region, Pt informed to use decongestant, RX given to patient, sinus rinses also recommended. Call if symptoms do not show improvement. Allerg ies - chronic - recommended pt to use allergy medication as prescribed. Pt has been counseled as to the appropriate use of the medication. Pt to call if allergy symptoms are not controlled with the medication. If using nasal spray, instructions as follows: Nasal spray- use twice daily, one spray per nostril twice daily, after 30 minutes, rinse out nose with saline spray.. Use opposite hand per nostril to spray in the nasal steroid allergy spray. Cerumen impaction - pt is to use sweet oil and return to clinic to have her ears flushed 10/23/2018 Appointment: Cayla Villegas WPtel: [address] [place], [place] [id number] (30 min) [facility] 10/23/2018 Patient Education: Patient Medication Summary Completed 10/23/2018 Visit Plan: Esophageal Reflux - the patient has been counseled against excessive intake of caffeine, spicy foods, peppermint, and cinnamon - all of which can exacerbate esophageal reflux. The patient is to take medications as prescribed and call the office if the symptoms are not improving. 09/13/2018 Appointment: [facility] [phone] [id number] (30 min) [facility] 09/13/2018 Patient Education: Patient Medication Summary Completed 09/13/2018 Visit Plan: Esophageal Reflux - the patient has been counseled against excessive intake of caffeine, spicy foods, peppermint, and cinnamon - all of which can exacerbate esophageal reflux. The patient is to take medications as prescribed and call the office if the symptoms are not improving. Chronic Depression and anxiety - the pt has symptoms of chronic anxiety and depression that have been fairly well controlled since the last office visit. The pt has expected periods of exacerbation with abatement of the symptoms with change in situational exposure. No change in current medications. Thalassemia - stable - no changes at this time. 11/30/2017 Appointment: Cay[facility] Villegas [facility]Ptel[facility] [phone] [facility] [id number] (15 min) Moderate 11/30/2017 Patient Education: Patient Medication Summary Completed 11/30/2017 Patient Education: Depression Completed 11/30/2017 Visit Plan: Medicare Exam - today w e discussed the patients past history, immunizations, preventative exams/evaluations - colonoscopy, fecal occult blood testing, routine labs for renal function, glucose, cholesterol, osteoporosis evaluations, cardiovascular testing and cancer screenings. We have also discussed mental health and the signs/symptoms of depression. The patient was advised of home safety evaluations and the need to make sure that as the aging process continues, we need to be aware of different ways to make the home a safer place to reside. The patient has also been counseled that exercise is necessary - and of utmost importance as we age to help decrease fall risk and to maintain independece in the home. Today we discussed the need for the patient to create paperwork for Advanced directives as well as for the patient to provide this office with a copy of her DOPA paperwork for health care surrogate. 05/17/2017 Visit Plan: Medicare Exam - today w e discussed the patients past history, immunizations, preventative exams/evaluations - colonoscopy, fecal occult blood testing, routine labs for renal function, glucose, cholesterol, osteoporosis evaluations, cardiovascular testing and cancer screenings. We have also discussed mental health and the signs/symptoms of depression. The patient was advised of home safety evaluations and the need to make sure that as the aging process continues, we need to be aware of different ways to make the home a safer place to reside. The patient has also been counseled that exercise is necessary - and of utmost importance as we age to help decrease fall risk and to maintain independece in the home. Today we discussed the need for the patient to create paperwork for Advanced directives as well as for the patient to provide this office with a copy of her DOPA paperwork for health care surrogate. 05/17/2017 Appointment: Cay[facility] Villegas [facility]Ptel[facility] [phone] [facility] [id number] [facility] - Annual Wellness Visit 05/17/2017 Patient Education: Patient Medication Summary Completed 05/17/2017 Appointment: Nurse Visit 01/12/2017 Visit Plan: Medicare Exam - today w e discussed the patients past history, immunizations, preventative exams/evaluations - colonoscopy, fecal occult blood testing, routine labs for renal function, glucose, cholesterol, osteoporosis evaluations, cardiovascular testing and cancer screenings. We have also discussed mental health and the signs/symptoms of depression. The patient was advised of home safety evaluations and the need to make sure that as the aging process continues, we need to be aware of different ways to make the home a safer place to reside. The patient has also been counseled that exercise is necessary - and of utmost importance as we age to help decrease fall risk and to maintain independece in the home. Today we discussed the need for the patient to create paperwork for Advanced directives as well as for the patient to provide this office with a copy of her DOPA paperwork for health care surrogate. Allergies - chronic - recommended pt to use allergy medication as prescribed. Pt has been counseled as to the appropriate use of the medication. Pt to call if allergy symptoms are not controlled with the medication. If using nasal spray, instructions as follows: Nasal spray- use twice daily, one spray per nostril twice daily, after 30 minutes, rinse out nose with saline spray.. Use opposite hand per nostril to spray in the nasal steroid allergy spray. Irritated skin lesion - right forearm, ongoing - discussed the need for possible biopsy due to risk of a skin cancer. Pt states that she does not want to do that at this time, she states that she will continue to monitor it, and notify clinic if she decides to have it looked at again. 05/12/2016 Visit Plan: Medicare Exam - today w e discussed the patients past history, immunizations, preventative exams/evaluations - colonoscopy, fecal occult blood testing, routine labs for renal function, glucose, cholesterol, osteoporosis evaluations, cardiovascular testing and cancer screenings. We have also discussed mental health and the signs/symptoms of depression. The patient was advised of home safety evaluations and the need to make sure that as the aging process continues, we need to be aware of different ways to make the home a safer place to reside. The patient has also been counseled that exercise is necessary - and of utmost importance as we age to help decrease fall risk and to maintain independece in the home. Today we discussed the need for the patient to create paperwork for Advanced directives as well as for the patient to provide this office with a copy of her DOPA paperwork for health care surrogate. Allergies - chronic - recommended pt to use allergy medication as prescribed. Pt has been counseled as to the appropriate use of the medication. Pt to call if allergy symptoms are not controlled with the medication. If using nasal spray, instructions as follows: Nasal spray- use twice daily, one spray per nostril twice daily, after 30 minutes, rinse out nose with saline spray.. Use opposite hand per nostril to spray in the nasal steroid allergy spray. Irritated skin lesion - right forearm, ongoing - discussed the need for possible biopsy due to risk of a skin cancer. Pt states that she does not want to do that at this time, she states that she will continue to monitor it, and notify clinic if she decides to have it looked at again. 05/12/2016 Appointment: Cayla Villegas WPtel[facility] [phone] [facility] [id number] [facility] - Annual Wellness Visit 05/12/2016 Patient Education: Patient Medication Summary Completed 05/12/2016 Referral: Devin Schroeder Referral Initiated 02/26/2016 Care Plan: Referral Order SNOMED-CT : [id number] Pending 02/20/2016 Visit Plan: Right knee pain - The p t is to use prn antiinflammatories to manage acute pain. The patient is to call the office if the pain is worsening or does not improve. If symptoms do not improve will order MRI or refer to Ortho 02/17/2016 Visit Plan: Right knee pain - The p t is to use prn antiinflammatories to manage acute pain. The patient is to call the office if the pain is worsening or does not improve. If symptoms do not improve will order MRI or refer to Ortho 02/17/2016 Appointment: Camila Martines [facility]Ptel[facility] [phone] [facility] [id number] (15 min) Moderate 02/17/2016 Patient Education: Patient Medication Summary Completed 02/17/2016 Visit Plan: Welcome to Medicare Angeline m - today we discussed the patients past history, immunizations, preventative exams/evaluations - colonoscopy, fecal occult blood testing, routine labs for renal function, gluc ose, cholesterol, osteoporosis evaluations, cardiovascular testing and cancer screenings. We have also discussed mental health and the signs/symptoms of depression. The patient was advised of home safety evaluations and the need to make sure that as the aging process continues, we need to be aware of different ways to make the home a safer place to reside. The patient has also been counseled that exercise is necessary - and of utmost importance as we age to help decrease fall risk and to maintain independece in the home. 04/14/2015 Patient Education: Patient Medication Summary Completed 04/14/2015 Visit Plan: BPPV - Pt has dizziness with position changes at night, and occasionally when going from sitting to standing - Orthostatic blood pressures - OK - lying 128/70, sitting 126/70, standing 126/72. Will give patient BPPV exercises to practice. Notify clinic if symptoms do not improve or worsen. 12/23/2014 Appointment: (15 min) Moderate 12/23/2014 Patient Education: Patient Medication Summary Completed 12/23/2014 Patient Education: Patient Medication Summary Completed 10/29/2014 Visit Plan: Well Adult - pt was cou nseled about diet, exercise, and encouraged to follow a heart healthy diet and increase activity level. The patient was instructed to RTC yearly for well adult exams and PRN for acute illnesses. The pt was also instructed to have yearly labs for check of cholesterol, thyroid, chem panel, CBC, and renal functioning. Esophageal Reflux - the patient has been counseled against excessive intake of caffeine, spicy foods, peppermint, and cinnamon - all of which can exacerbate esophageal reflux. The patient is to take medications as prescribed and call the office if the symptoms are not improving. Chronic Depression and anxiety - the pt has symptoms of chronic anxiety and depression that have been fairly well controlled since the last office visit. The pt has expected periods of exacerbation with abatement of the symptoms with change in situational exposure. No change in current medications. 10/28/2014 Appointment: Anita Najera WPtel[id number] [facility] 10/28/2014 Patient Education: Patient Medication Summary Completed 10/28/2014 Referral: Devin Schroeder Referral Initiated Instructions Comment Flonase twice a day and zyrtec daily at night, mucinex if needed to break up sputum . Medicare Exam - today we discussed the patients past history, immunizations, preventative exams/evaluations - colonoscopy, fecal occult blood testing, routine labs for renal function, glucose, cholesterol, osteoporosis evaluations, cardiovascular testing and cancer screenings. We have also discussed mental health and the signs/symptoms of depression. The patient was advised of home safety evaluations and the need to make sure that as the aging process continues, we need to be aware of different ways to make the home a safer place to reside. The patient has also been counseled that exercise is necessary - and of utmost importance as we age to help decrease fall risk and to maintain independece in the home. Today we discussed the need for the patient to create paperwork for Advanced directives as well as for the patient to provide this office with a copy of her DOPA paperwork for health care surrogate. Allergies - chronic - recommended pt to use allergy medication as prescribed. Pt has been counseled as to the appropriate use of the medication. Pt to call if allergy symptoms are not controlled with the medication. If using nasal spray, instructions as follows: Nasal spray- use twice daily, one spray per nostril twice daily, after 30 minutes, rinse out nose with saline spray.. Use opposite hand per nostril to spray in the nasal steroid allergy spray. Irritated skin lesion - right forearm, ongoing - discussed the need for possible biopsy due to risk of a skin cancer. Pt states that she does not want to do that at this time, she states that she will continue to monitor it, and notify clinic if she decides to have it looked at again. Flonase twice a day and zyrtec daily at night, mucinex if needed to break up sputum . Medicare Exam - today we discussed the patients past history, immunizations, preventative exams/evaluations - colonoscopy, fecal occult blood testing, routine labs for renal function, glucose, cholesterol, osteoporosis evaluations, cardiovascular testing and cancer screenings. We have also discussed mental health and the signs/symptoms of depression. The patient was advised of home safety evaluations and the need to make sure that as the aging process continues, we need to be aware of different ways to make the home a safer place to reside. The patient has also been counseled that exercise is necessary - and of utmost importance as we age to help decrease fall risk and to maintain independece in the home. Today we discussed the need for the patient to create paperwork for Advanced directives as well as for the patient to provide this office with a copy of her DOPA paperwork for health care surrogate. Allergies - chronic - recommended pt to use allergy medication as prescribed. Pt has been counseled as to the appropriate use of the medication. Pt to call if allergy symptoms are not controlled with the medication. If using nasal spray, instructions as follows: Nasal spray- use twice daily, one spray per nostril twice daily, after 30 minutes, rinse out nose with saline spray.. Use opposite hand per nostril to spray in the nasal steroid allergy spray. Irritated skin lesion - right forearm, ongoing - discussed the need for possible biopsy due to risk of a skin cancer. Pt states that she does not want to do that at this time, she states that she will continue to monitor it, and notify clinic if she decides to have it looked at again. . Medicare Exam - to day we discussed the patients past history, immunizations, preventative exams/evaluations - colonoscopy, fecal occult blood testing, routine labs for renal function, glucose, cholesterol, osteoporosis evaluations, cardiovascular testing and cancer screenings. We have also discussed mental health and the signs/symptoms of depression. The patient was advised of home safety evaluations and the need to make sure that as the aging process continues, we need to be aware of different ways to make the home a safer place to reside. The patient has also been counseled that exercise is necessary - and of utmost importance as we age to help decrease fall risk and to maintain independece in the home. Today we discussed the need for the patient to create paperwork for Advanced directives as well as for the patient to provide this office with a copy of her DOPA paperwork for health care surrogate. . Medicare Exam - to day we discussed the patients past history, immunizations, preventative exams/evaluations - colonoscopy, fecal occult blood testing, routine labs for renal function, glucose, cholesterol, osteoporosis evaluations, cardiovascular testing and cancer screenings. We have also discussed mental health and the signs/symptoms of depression. The patient was advised of home safety evaluations and the need to make sure that as the aging process continues, we need to be aware of different ways to make the home a safer place to reside. The patient has also been counseled that exercise is necessary - and of utmost importance as we age to help decrease fall risk and to maintain independece in the home. Today we discussed the need for the patient to create paperwork for Advanced directives as well as for the patient to provide this office with a copy of her DOPA paperwork for health care surrogate. . Well Adult - pt wa s counseled about diet, exercise, and encouraged to follow a heart healthy diet and increase activity level. The patient was instructed to RTC yearly for well adult exams and PRN for acute illnesses. The pt was also instructed to have yearly labs for check of cholesterol, thyroid, chem panel, CBC, and renal functioning. Esophageal Reflux - the patient has been counseled against excessive intake of caffeine, spicy foods, peppermint, and cinnamon - all of which can exacerbate esophageal reflux. The patient is to take medications as prescribed and call the office if the symptoms are not improving. Chronic Depression and anxiety - the pt has symptoms of chronic anxiety and depression that have been fairly well controlled since the last office visit. The pt has expected periods of exacerbation with abatement of the symptoms with change in situational exposure. No change in current medications. . Esophageal Reflux - the patient has been counseled against excessive intake of caffeine, spicy foods, peppermint, and cinnamon - all of which can exacerbate esophageal reflux. The patient is to take medications as prescribed and call the office if the symptoms are not improving. Chronic Depression and anxiety - the pt has symptoms of chronic anxiety and depression that have been fairly well controlled since the last office visit. The pt has expected periods of exacerbation with abatement of the symptoms with change in situational exposure. No change in current medications. Thalassemia - stable - no changes at this time. . Welcome to Medicar e Exam - today we discussed the patients past history, immunizations, preventative exams/evaluations - colonoscopy, fecal occult blood testing, routine labs for renal function, glucose, cholesterol, osteoporosis evaluations, cardiovascular testing and cancer screenings. We have also discussed mental health and the signs/symptoms of depression. The patient was advised of home safety evaluations and the need to make sure that as the aging process continues, we need to be aware of different ways to make the home a safer place to reside. The patient has also been counseled that exercise is necessary - and of utmost importance as we age to help decrease fall risk and to maintain independece in the home. . Esophageal Reflux - the patient has been counseled against excessive intake of caffeine, spicy foods, peppermint, and cinnamon - all of which can exacerbate esophageal reflux. The patient is to take medications as prescribed and call the office if the symptoms are not improving. Ibuprofen you can do 800mg three times a day as needed. Rest, Ice, Compression (knee sleeve), Elevation. . Right knee pain - The pt is to use prn antiinflammatories to manage acute pain. The patient is to call the office if the pain is worsening or does not improve. If symptoms do not improve will order MRI or refer to Ortho Ibuprofen you can do 800mg three times a day as needed. Rest, Ice, Compression (knee sleeve), Elevation. . Right knee pain - The pt is to use prn antiinflammatories to manage acute pain. The patient is to call the office if the pain is worsening or does not improve. If symptoms do not improve will order MRI or refer to Ortho get some flonase sherin al spray over the counter sweet oil drops in the ears once a week and then come back and we can flush your ears. Sinusitis - Pt has acute infection - pain in face, maxillary region, Pt informed to use decongestant, RX given to patient, sinus rinses also recommended. Call if symptoms do not show improvement. Allergies - chronic - recommended pt to use allergy medication as prescribed. Pt has been counseled as to the appropriate use of the medication. Pt to call if allergy symptoms are not controlled with the medication. If using nasal spray, instructions as follows: Nasal spray- use twice daily, one spray per nostril twice daily, after 30 minutes, rinse out nose with saline spray.. Use opposite hand per nostril to spray in the nasal steroid allergy spray. Cerumen impaction - pt is to use sweet oil and return to clinic to have her ears flushed Do exercises for diz ziness, notify clinic if symptoms do not improve. . BPPV - Pt has dizziness with position changes at night, and occasionally when going from sitting to standing - Orthostatic blood pressures - OK - lying 128/70, sitting 126/70, standing 126/72. Will give patient BPPV exercises to practice. Notify clinic if symptoms do not improve or worsen.
--- OUTSIDE RECORDS SUMMARY | 2019-10-05 19:23 | XMS REPORT | CCD ---
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 Name Role Phone PP Unavailable CCM Unavailable Summary Purpose Interface Exchange Insurance Providers Payer name Policy type / Coverage type Covered libertarian ID Effective Begin Date Effective End Date WPS Medicare Part B Medicare Part B [id number] Unknown Cigna Medicare Part B 80 [id number] Unknown Family history Father Diagnosis Age At Onset Colon cancer Unknown Mother Diagnosis Age At Onset Cancer Unknown Colon cancer Unknown Brother Diagnosis Age At Onset lung cancer Unknown Depression Unknown Social History Social History Element Codes Description Effective Dates Marital status Unknown M arried 10/28/2014 Number of children Unknown 2 10/28/2014 Employment Unknown Retir ed previously worked at the [employer] in the [employer] - sometimes 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 10/28/[address]: 076566293 Never smoker 10/28/[address]: 296580 Currently drinks alcohol 10/28/2014 Frequency of drinks SNOMED CT: 067457152 14 drinks per week - drinks about 3 nights a week - 4 - 5 beers at a time . 10/28/2014 Allergies, Adverse Reactions, Alerts Substance Reaction Codes Entered Date Inactivated Date Status * NO KNOWN DRUG KORY RGIES Unknown 10/28/2014 No Inactive Date Active Past Medical History Illness Codes Condition Status Onset Date Resolved Date Impacted cerumen, bi lateral ICD-9: 380.4 ICD-10: [...] Condition Codes Effectiv e Dates Condition Status Impacted cerumen, bi lateral ICD-9: 380.4 ICD-10: [...] Instructions Zithromax Z-Feliberto 250 mg tablet RxNorm: 073013 1 Tablet(s) PO UD 10/23/2018 No Stop Date Active zpack as directed Protonix 40 mg table t,delayed release RxNorm: 091079 1 Tablet(s) PO daily 10/05/2018 02/01/2019 Ac tive Protonix 40 mg table t,delayed release RxNorm: 566114 1 Tablet(s) PO daily 09/13/2018 09/26/2018 In active Carafate 1 gram tablet RxNorm: 173801 1 Tablet(s) PO QID as needed 09/13/2018 10/12/2018 Inactive Prozac 20 mg capsule RxNorm: 737859 TAKE 1 CAPSULE BY MOUTH ONCE DAILY 08/09/2018 No Stop Date Active omeprazole 20 mg cap bernadette,delayed release RxNorm: 152605 TAKE 1 CAPSULE BY MEREDITH TH ONCE DAILY 08/07/2018 10/04/2018 Inactive Prozac 20 mg capsule RxNorm: 007631 TAKE 1 CAPSULE BY MOUTH ONCE DAILY 07/10/2018 08/08/2018 In active Prozac 20 mg capsule RxNorm: 456421 TAKE 1 CAPSULE BY MOUTH ONCE DAILY 12/29/2017 07/09/2018 In active Prozac 20 mg capsule RxNorm: 936153 TAKE 1 CAPSULE BY MOUTH ONCE DAILY 11/28/2017 12/28/2017 In active Prozac 20 mg capsule RxNorm: 218647 TAKE ONE CAPSULE BY MOUTH ONCE DAILY 08/22/2017 11/27/2017 In active omeprazole 20 mg cap bernadette,delayed release RxNorm: 164431 1 Capsule(s) PO daily 07/07/2017 01/02/2018 In active omeprazole 20 mg cap bernadette,delayed release RxNorm: 736989 1 Capsule(s) PO daily 05/17/2017 06/15/2017 In active Prozac 20 mg capsule RxNorm: 608877 TAKE ONE CAPSULE BY MOUTH ONCE DAILY 02/07/2017 08/21/2017 In active Zithromax Z-Feliberto 250 mg tablet RxNorm: 908473 1 Tablet(s) PO UD 01/13/2017 07/06/2017 Inactive zpack as directed Prozac 20 mg capsule RxNorm: 204502 TAKE ONE CAPSULE BY MOUTH ONCE DAILY 01/03/2017 02/06/2017 In active omeprazole 40 mg cap bernadette,delayed release RxNorm: 432453 TAKE ONE CAPSULE BY M OUTH EVERY OTHER DAY 01/03/2017 07/06/2017 Inactive Prozac 20 mg capsule RxNorm: 960753 TAKE ONE CAPSULE BY MOUTH ONCE DAILY 10/04/2016 01/01/2017 In active omeprazole 40 mg cap bernadette,delayed release RxNorm: 544147 TAKE ONE CAPSULE BY M OUTH EVERY OTHER DAY 05/24/2016 11/19/2016 Inactive Prozac 20 mg capsule RxNorm: 324980 TAKE ONE CAPSULE BY MOUTH ONCE DAILY 05/24/2016 09/20/2016 In active omeprazole 40 mg cap bernadette,delayed release RxNorm: 323061 TAKE ONE CAPSULE BY M OUTH EVERY OTHER DAY 03/22/2016 05/20/2016 Inactive Prozac 20 mg capsule RxNorm: 843926 Capsule(s) TAKE ONE CAPSULE BY MOUTH ONC E DAILY 11/18/2015 05/15/2016 Inactive Prozac 20 mg capsule RxNorm: 441308 Capsule(s) TAKE ONE CAPSULE BY MOUTH ONC E DAILY 09/16/2015 11/14/2015 Inactive omeprazole 40 mg cap bernadette,delayed release RxNorm: 247821 Capsule(s) 1 Capsule( s) PO every other day 08/29/2015 02/24/2016 Inactive Prozac 20 mg capsule RxNorm: 848947 Capsule(s) TAKE ONE CAPSULE BY MOUTH ONC E DAILY 07/22/2015 09/15/2015 Inactive Prozac 20 mg capsule RxNorm: 048812 Capsule(s) TAKE ONE CAPSULE BY MOUTH ONC E DAILY 05/19/2015 07/17/2015 Inactive Prozac 20 mg capsule RxNorm: 634879 TAKE ONE CAPSULE BY MOUTH ONCE DAILY 03/14/2015 05/12/2015 In active omeprazole 40 mg cap bernadette,delayed release RxNorm: 445563 1 Capsule(s) PO every other day 02/06/2015 08/04/2015 Inactive omeprazole 40 mg cap bernadette,delayed release RxNorm: 785818 1 Capsule(s) PO every other day 01/06/2015 02/04/2015 Inactive Prozac 20 mg capsule RxNorm: 766383 1 Capsule(s) PO daily 11/04/2014 03/03/2015 Inactive Prozac 40 mg capsule RxNorm: 326239 1 Capsule(s) PO daily 10/28/2014 11/03/2014 Inactive omeprazole 40 mg cap bernadette,delayed release RxNorm: 482492 1 Capsule(s) PO every other day 10/28/2014 11/26/2014 Inactive Prozac oral RxNorm: 641822 oral No Start Date 10/27/2014 Inactive Zithromax Z-Feliberto 250 mg tablet RxNorm: 551848 1 Tablet(s) PO UD No Start Date 01/12/2017 Inactive zpack as directed Protonix 40 mg table t,delayed release RxNorm: 195902 1 Tablet(s) PO daily No Start Date 10/28/2014 Inactive Medication Administered No Medication Administered data Immunizations No Immunization data Assessments Condition Codes Effectiv e Dates Other allergic rhinitis ICD-10: J30. 89 ICD-9: [...] Exam 04/14/2015 vertigo 12/23/2014 depression 10/28/2014 delano cuadra Results Observation Observation Code Item Item Code [...] 22.0 pg 09/13/2018 Cbc With Differential Ord2 [place]% 8.0 % 09/13/2018 Cbc With Differential Ord2 [...] 2.13 K/ul 09/13/2018 Cbc With Differential Ord2 [place] ABS# 0.7 K/ul 09/13/2018 Cbc With Differential Ord2 Eos ABS# 0.2 K/ul 09/13/2018 Cbc With Differential Ord2 Baso ABS# 0.0 K/ul 09/13/2018 Comp Metabolic Iyc972 NA 137 mEq/L 09/13/2018 Comp Metabolic Vsw758 K 4.3 mEq/L 09/13/2018 Comp Metabolic Rmj818 CL 101 mEq/L 09/13/2018 Comp Metabolic Ktt537 CO2 28.0 mEq/L 09/13/2018 Comp Metabolic Cfn821 AN ION GAP 12 09/13/2018 Comp Metabolic Hex329 GL UCOSE 97 mg/dL 09/13/2018 Comp Metabolic Fho423 Cr eat 0.9 mg/dL 09/13/2018 Comp Metabolic Ayy186 eG FR 64 ml/min/1.73m2 09/13 Comp Metabolic Gtg961 BUN 16 mg/dL 09/13/2018 Comp Metabolic Rai963 B/ C Ratio 17.2 Ratio 09/13/2018 Comp Metabolic Gkn586 CA LCIUM 9.6 mg/dL 09/13/2018 Comp Metabolic Rwy946 AL K PHOS 94 U/L 09/13/2018 Comp Metabolic Gim177 T(SGOT) 49 U/L 09/13/2018 Comp Metabolic Ehx133 AL T(SGPT) 29 U/L 09/13/2018 Comp Metabolic Czr000 BI LI T 1.2 mg/dL 09/13/2018 Comp Metabolic Prl619 AL BUMIN 4.3 g/dL 09/13/2018 Comp Metabolic Qdo600 TP RO 7.0 g/dL 09/13/2018 Comp Metabolic Ixl380 GL OB 2.7 g/dL 09/13/2018 Comp Metabolic Yjc849 A/ G Ratio 1.6 Ratio 09/13/2018 Comp Metabolic Vwu529 Os mo 275 mOsmo 09/13/2018 Cbc With [...] 21.9 pg 05/19/2017 Cbc With Differential Ord2 [place]% 8.1 % 05/19/2017 Cbc With Differential Ord2 [...] 1.98 K/ul 05/19/2017 Cbc With Differential Ord2 [place] ABS# 0.5 K/ul 05/19/2017 Cbc With Differential Ord2 Eos ABS# 0.2 K/ul 05/19/2017 Cbc With Differential Ord2 Baso ABS# 0.0 K/ul 05/19/2017 Comp Metabolic Eom708 NA 142 mEq/L 05/19/2017 Comp Metabolic Rug411 K 4.2 mEq/L 05/19/2017 Comp Metabolic Yqi724 CL 105 mEq/L 05/19/2017 Comp Metabolic Fir797 CO2 29.0 mEq/L 05/19/2017 Comp Metabolic Zdv540 AN ION GAP 12 05/19/2017 Comp Metabolic Olh925 GL UCOSE 95 mg/dL 05/19/2017 Comp Metabolic Eck004 Cr eat 0.7 mg/dL 05/19/2017 Comp Metabolic Bhm126 eG FR 90 ml/min/1.73m2 05/19 Comp Metabolic Wpu999 BUN 14 mg/dL 05/19/2017 Comp Metabolic Oij342 B/ C Ratio 20.3 Ratio 05/19/2017 Comp Metabolic Yqb693 CA LCIUM 9.1 mg/dL 05/19/2017 Comp Metabolic Cej939 AL K PHOS 70 U/L 05/19/2017 Comp Metabolic Fek733 T(SGOT) 17 U/L 05/19/2017 Comp Metabolic Dnf015 AL T(SGPT) 14 U/L 05/19/2017 Comp Metabolic Fth467 BI LI T 0.9 mg/dL 05/19/2017 Comp Metabolic Uer257 AL BUMIN 4.2 g/dL 05/19/2017 Comp Metabolic Gfb850 TP RO 6.4 g/dL 05/19/2017 Comp Metabolic Plw789 GL OB 2.2 g/dL 05/19/2017 Comp Metabolic Ygv418 A/ G Ratio 1.9 Ratio 05/19/2017 Comp Metabolic Jrw078 Os mo 283 mOsmo 05/19/2017 Tsh Ord6 TSH (3rd IS) 1.28 uIU/mL 05/19/2017 Lipid Ord30 CHOL 213 mg/dL 05/19/2017 Lipid Ord30 HDL 79.0 mg/dl 05/19/2017 Lipid Ord30 TRIG 73 mg/dL 05/19/2017 Lipid Ord30 LDL 119 mg/dL 05/19/2017 Lipid Ord30 C/HDL 2.7 Ratio 05/19/2017 Influenza A+B Myn530 Inf jeff A+B Negative 01/12/2017 Tsh Ord6 hTSH II 1.17 uIU/mL 10/29/2014 Comp Metabolic Efk343 NA 138 mEq/L 10/29/2014 Comp Metabolic Ouu264 K 4.3 mEq/L 10/29/2014 Comp Metabolic Pqu612 CL 102 mEq/L 10/29/2014 Comp Metabolic Mpd157 CO2 30.0 mEq/L 10/29/2014 Comp Metabolic Poh036 AN ION GAP 10 10/29/2014 Comp Metabolic Evz593 GL UCOSE 76 mg/dL 10/29/2014 Comp Metabolic Bgx517 Cr eat 0.8 mg/dL 10/29/2014 Comp Metabolic Aoh997 eG FR 81 ml/min/1.73m2 10/29 Comp Metabolic Mlj955 BUN 9 mg/dL 10/29/2014 Comp Metabolic Yol955 B/ C Ratio 11.8 Ratio 10/29/2014 Comp Metabolic Bis494 CA LCIUM 9.1 mg/dL 10/29/2014 Comp Metabolic Drz146 AL K PHOS 75 U/L 10/29/2014 Comp Metabolic Cnv732 T(SGOT) 14 U/L 10/29/2014 Comp Metabolic Top924 AL T(SGPT) 12 U/L 10/29/2014 Comp Metabolic Iuy892 BI LI T 0.8 mg/dL 10/29/2014 Comp Metabolic Rpl880 AL BUMIN 4.2 g/dL 10/29/2014 Comp Metabolic Jfa824 TP RO 6.6 g/dL 10/29/2014 Comp Metabolic Wpx331 GL OB 2.4 g/dL 10/29/2014 Comp Metabolic Lrq334 A/ G Ratio 1.8 Ratio 10/29/2014 Comp Metabolic Lqj159 Os mo 273 mOsmo 10/29/2014 Lipid Ord30 [...] developed 05/17/2017 None Full Exam - General 1994 Constitutional general appearance Overall: in no acute distress 05/17/2017 None Full Exam - General 1994 Constitutional general appearance Overall: well nourished 05/17/2017 None Full Exam - General 1994 Eyes conjunctiva/eyelids Overall: conjunctiva clear 05/17/2017 None Full Exam - General 1994 Eyes conjunctiva/eyelids Overall: eyelids normal 05/17/2017 None Full Exam - General 1995 Ears/Nose/Throat lips/teeth/gingiva Overall: benign lips 05/17/2017 None [...] lips 05/12/2016 None Full Exam - General 1994 [...] affect 10/28/2014 None Procedures Procedure Codes Date PPPS, SUBSEQ VISIT CPT- 4: G0439 05/17/2017 PPPS, SUBSEQ VISIT CPT- 4: G0439 05/12/2016 INITIAL PREVENTIVE EXAM CPT-4: G0402 04/14/2015 Vital Signs Date Vital 10/23/2018 Blood Pressure 1: 140/72 Code: 8480-6 Heart Rate 1: 97 bpm Height: 5'2" SpO2: 77% Weight: 09/13/2018 Blood Pressure 1: 142/76 Code: 8480-6 BMI: 34.6 Code: 23686-6 Heart Rate 1: 84 bpm Height: 5'2" SpO2: 97% Weight: 189 lbs 11/30/2017 Blood Pressure 1: 146/70 Code: 8480-6 BMI: 32.4 Code: 93755-0 Heart Rate 1: 77 bpm Height: 5'2" SpO2: 97% Weight: 177 lbs 05/17/2017 Blood Pressure 1: 128/60 Code: 8480-6 BMI: 34.2 Code: 21564-6 Heart Rate 1: 91 bpm Height: 5'2" SpO2: 97% Waist Measure (cm): 84 cm Weight: 187 lbs 05/12/2016 Blood Pressure 1: 144/62 Code: 8480-6 BMI: 34.2 Code: 53325-0 Heart Rate 1: 83 bpm Height: 5'2" SpO2: 98% Waist Measure (cm): 97 cm Weight: 187 lbs 02/17/2016 Blood Pressure 1: 158/76 Code: 8480-6 BMI: 34.4 Code: 13062-2 Heart Rate 1: 82 bpm Height: 5'2" SpO2: 97% Weight: 188 lbs 04/14/2015 Blood Pressure 1: 132/60 Code: 8480-6 BMI: 32.0 Code: 30799-2 Heart Rate 1: 79 bpm Height: 5'2" SpO2: 97% Waist Measure (cm): 102 cm Weight: 175 lbs 12/23/2014 Blood Pressure 1: 128/72 Code: 8480-6 BMI: 31.1 Code: 29803-6 Heart Rate 1: 75 bpm Height: 5'2" SpO2: 98% Weight: 170 lbs 10/28/2014 Blood Pressure 1: 122/62 Code: 8480-6 BMI: 30.4 Code: 36186-3 Heart Rate 1: 83 bpm Height: 5'2" [...] Encounters Encounter Performer Loca tion Codes Date [id number] EST. PATIENT, LEVEL IV Diagnosis: Other acute sinusitis[ICD10: J01.80] Diagnosis: Other allergic rhinitis[ICD10: J30.89] Diagnosis: Impacted cerumen, bilateral[ICD10: H61.23] Cayla Najera MD, [facility] CPT-4: 75586 10/23/2018 [id number] EST. PATIENT, LEVEL IV Diagnosis: Gastro-esophageal reflux disease without esophagitis[ICD10: K21.9] Cayla Najera MD, [facility] CPT-4: 66035 09/13/2018 [id number] EST. PATIENT, LEVEL III Diagnosis: Gastro-esophageal reflux disease without esophagitis[ICD10: K21.9] Diagnosis: Generalized anxiety disorder[ICD10: F41.1] Diagnosis: Major depressive disorder, single episode, moderate[ICD10: F32.1] Diagnosis: Thalassemia minor[ICD10: D56.3] Cayla Najera MD, [facility] CPT-4: 91650 11/30/2017 95565 EST. PATIENT, LEVEL III Diagnosis: Pain in right knee[ICD10: M25.561] Cayla Najera MD, [facility] CPT-4: 84631 02/17/2016 [id number] EST. PATIENT, LEVEL III Diagnosis: Benign paroxysmal vertigo, unspecified ear[ICD10: H81.10] Anita Najera MD [facility] CPT-4: 90500 12/23/2014 (32013) PREV VISIT N EW AGE 40-64 Diagnosis: Routine medical exam[ICD9: V70.0] Anita Najera MD, [facility] CPT-4: 50988 10/28/2014 Plan of Care Planned Activity Notes C odes Status Date Visit Plan: Sinusitis - Pt has acut [...] clinic to have her ears flushed 10/23/2018 Patient Education: Patient Medication Summary Completed 10/23/2018 Visit Plan: Esophageal Reflux - the patient has been counseled against excessive intake of caffeine, spicy foods, peppermint, and cinnamon - all of which can exacerbate esophageal reflux. The patient is to take medications as prescribed and call the office if the symptoms are not improving. 09/13/2018 Appointment: Cayla Villegas WPtel: [address] [place], [place] [phone] (30 min) [facility] 09/13/2018 Patient Education: Patient Medication Summary Completed [...] time. 11/30/2017 Appointment: [facility] [phone] [facility] (15 min) Moderate 11/30/2017 Patient Education: Patient [...] surrogate. 05/17/2017 Appointment: [facility] Villegas [facility]el[facility] [phone] [facility] [facility] - Annual Wellness Visit 05/17/2017 Patient Education: [...] at again. 05/12/2016 Appointment: Cayla Villegas WPtel: [facility] [facility] - Annual Wellness Visit 05/12/2016 Patient Education: Patient Medication Summary Completed 05/12/2016 Referral: Devin Schroeder Referral Initiated 02/26/2016 Care Plan: Referral Order SNOMED-CT : [id number] Pending 02/20/2016 Visit Plan: Right knee pain [...] to Ortho 02/17/2016 Appointment: Camila Martines [facility]el[facility] [phone] [phone] (15 min) Moderate 02/17/2016 Patient Education: Patient Medication Summary Completed 02/17/2016 Visit Plan: Welcome to Medicare Exa m - today we discussed the patients [...] medications. 10/28/2014 Appointment: Anita Najera WPtel[facility] New Patient 10/28/2014 Patient Education: Patient Medication [...]
--- OUTSIDE RECORDS SUMMARY | 2019-10-05 19:23 | XMS REPORT | CCD ---
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 Name Role Phone PP Unavailable CCM Unavailable Summary Purpose Interface Exchange Insurance Providers Payer name Policy type / Coverage type Covered green party ID Effective Begin Date Effective End Date WPS Medicare Part B Medicare Part B [id number] Unknown Cigna Medicare Part B 80 [id number] Unknown Family history Father Diagnosis Age At Onset Colon cancer Unknown Mother Diagnosis Age At Onset Cancer Unknown Colon cancer Unknown Brother Diagnosis Age At Onset lung cancer Unknown Depression Unknown Social History Social History Element Codes Description Effective Dates Marital status Unknown M arried 10/28/2014 Number of children Unknown 2 10/28/2014 Employment Unknown Retir ed previously worked at the [employer] in the [place] - sometimes substitues, 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 10/28/[address]: 543422176 Never smoker 10/28/[address]: 186855 Currently drinks alcohol 10/28/2014 Frequency of drinks SNOMED CT: 394477213 14 drinks per week - drinks about [...] Instructions Zithromax Z-Feliberto 250 mg tablet RxNorm: 706306 1 Tablet(s) PO UD 10/23/2018 No Stop Date Active zpack as directed Protonix 40 mg table t,delayed release RxNorm: 783445 1 Tablet(s) PO daily 10/05/2018 02/01/2019 Ac tive Protonix 40 mg table t,delayed release RxNorm: 753669 1 Tablet(s) PO daily 09/13/2018 09/26/2018 In active Carafate 1 gram tablet RxNorm: 720866 1 Tablet(s) PO QID as needed 09/13/2018 10/12/2018 Inactive Prozac 20 mg capsule RxNorm: 361559 TAKE 1 CAPSULE BY MOUTH ONCE DAILY 08/09/2018 No Stop Date Active omeprazole 20 mg cap bernadette,delayed release RxNorm: 770122 TAKE 1 CAPSULE BY MEREDITH TH ONCE DAILY 08/07/2018 10/04/2018 Inactive Prozac 20 mg capsule RxNorm: 163460 TAKE 1 CAPSULE BY MOUTH ONCE DAILY 07/10/2018 08/08/2018 In active Prozac 20 mg capsule RxNorm: 385744 TAKE 1 CAPSULE BY MOUTH ONCE DAILY 12/29/2017 07/09/2018 In active Prozac 20 mg capsule RxNorm: 589147 TAKE 1 CAPSULE BY MOUTH ONCE DAILY 11/28/2017 12/28/2017 In active Prozac 20 mg capsule RxNorm: 130575 TAKE ONE CAPSULE BY MOUTH ONCE DAILY 08/22/2017 11/27/2017 In active omeprazole 20 mg cap bernadette,delayed release RxNorm: 874052 1 Capsule(s) PO daily 07/07/2017 01/02/2018 In active omeprazole 20 mg cap bernadette,delayed release RxNorm: 703657 1 Capsule(s) PO daily 05/17/2017 06/15/2017 In active Prozac 20 mg capsule RxNorm: 675778 TAKE ONE CAPSULE BY MOUTH ONCE DAILY 02/07/2017 08/21/2017 In active Zithromax Z-Feliberto 250 mg tablet RxNorm: 238724 1 Tablet(s) PO UD 01/13/2017 07/06/2017 Inactive zpack as directed Prozac 20 mg capsule RxNorm: 433807 TAKE ONE CAPSULE BY MOUTH ONCE DAILY 01/03/2017 02/06/2017 In active omeprazole 40 mg cap bernadette,delayed release RxNorm: 213069 TAKE ONE CAPSULE BY M OUTH EVERY OTHER DAY 01/03/2017 07/06/2017 Inactive Prozac 20 mg capsule RxNorm: 095052 TAKE ONE CAPSULE BY MOUTH ONCE DAILY 10/04/2016 01/01/2017 In active omeprazole 40 mg cap bernadette,delayed release RxNorm: 084349 TAKE ONE CAPSULE BY M OUTH EVERY OTHER DAY 05/24/2016 11/19/2016 Inactive Prozac 20 mg capsule RxNorm: 304289 TAKE ONE CAPSULE BY MOUTH ONCE DAILY 05/24/2016 09/20/2016 In active omeprazole 40 mg cap bernadette,delayed release RxNorm: 412535 TAKE ONE CAPSULE BY M OUTH EVERY OTHER DAY 03/22/2016 05/20/2016 Inactive Prozac 20 mg capsule RxNorm: 126575 Capsule(s) TAKE ONE CAPSULE BY MOUTH ONC E DAILY 11/18/2015 05/15/2016 Inactive Prozac 20 mg capsule RxNorm: 281890 Capsule(s) TAKE ONE CAPSULE BY MOUTH ONC E DAILY 09/16/2015 11/14/2015 Inactive omeprazole 40 mg cap bernadette,delayed release RxNorm: 781787 Capsule(s) 1 Capsule( s) PO every other day 08/29/2015 02/24/2016 Inactive Prozac 20 mg capsule RxNorm: 777926 Capsule(s) TAKE ONE CAPSULE BY MOUTH ONC E DAILY 07/22/2015 09/15/2015 Inactive Prozac 20 mg capsule RxNorm: 881900 Capsule(s) TAKE ONE CAPSULE BY MOUTH ONC E DAILY 05/19/2015 07/17/2015 Inactive Prozac 20 mg capsule RxNorm: 604694 TAKE ONE CAPSULE BY MOUTH ONCE DAILY 03/14/2015 05/12/2015 In active omeprazole 40 mg cap bernadette,delayed release RxNorm: 728806 1 Capsule(s) PO every other day 02/06/2015 08/04/2015 Inactive omeprazole 40 mg cap bernadette,delayed release RxNorm: 067454 1 Capsule(s) PO every other day 01/06/2015 02/04/2015 Inactive Prozac 20 mg capsule RxNorm: 955697 1 Capsule(s) PO daily 11/04/2014 03/03/2015 Inactive Prozac 40 mg capsule RxNorm: 726706 1 Capsule(s) PO daily 10/28/2014 11/03/2014 Inactive omeprazole 40 mg cap bernadette,delayed release RxNorm: 989150 1 Capsule(s) PO every other day 10/28/2014 11/26/2014 Inactive Prozac oral RxNorm: 031711 oral No Start Date 10/27/2014 Inactive Zithromax Z-Feliberto 250 mg tablet RxNorm: 744383 1 Tablet(s) PO UD No Start Date 01/12/2017 Inactive zpack as directed Protonix 40 mg table t,delayed release RxNorm: 241367 1 Tablet(s) PO daily No Start Date [...] 22.0 pg 09/13/2018 Cbc With Differential Ord2 [place]% 8.0 % 09/13/2018 Cbc With Differential Ord2 [...] 2.13 K/ul 09/13/2018 Cbc With Differential Ord2 [place] ABS# 0.7 K/ul 09/13/2018 Cbc With Differential Ord2 Eos ABS# 0.2 K/ul 09/13/2018 Cbc With Differential Ord2 Baso ABS# 0.0 K/ul 09/13/2018 Comp Metabolic Nfe703 NA 137 mEq/L 09/13/2018 Comp Metabolic Vjz585 K 4.3 mEq/L 09/13/2018 Comp Metabolic Guc100 CL 101 mEq/L 09/13/2018 Comp Metabolic Shl697 CO2 28.0 mEq/L 09/13/2018 Comp Metabolic Nmy651 AN ION GAP 12 09/13/2018 Comp Metabolic Lhj054 GL UCOSE 97 mg/dL 09/13/2018 Comp Metabolic Uqe156 Cr eat 0.9 mg/dL 09/13/2018 Comp Metabolic Gni895 eG FR 64 ml/min/1.73m2 09/13 Comp Metabolic Sjt249 BUN 16 mg/dL 09/13/2018 Comp Metabolic Kkg569 B/ C Ratio 17.2 Ratio 09/13/2018 Comp Metabolic Bxf046 CA LCIUM 9.6 mg/dL 09/13/2018 Comp Metabolic Wev032 AL K PHOS 94 U/L 09/13/2018 Comp Metabolic Baj746 T(SGOT) 49 U/L 09/13/2018 Comp Metabolic Ddr813 AL T(SGPT) 29 U/L 09/13/2018 Comp Metabolic Bwk951 BI LI T 1.2 mg/dL 09/13/2018 Comp Metabolic Gwu031 AL BUMIN 4.3 g/dL 09/13/2018 Comp Metabolic Ltl308 TP RO 7.0 g/dL 09/13/2018 Comp Metabolic Gbg190 GL OB 2.7 g/dL 09/13/2018 Comp Metabolic Xrp557 A/ G Ratio 1.6 Ratio 09/13/2018 Comp Metabolic Zur985 Os mo 275 mOsmo 09/13/2018 Cbc With [...] 21.9 pg 05/19/2017 Cbc With Differential Ord2 [place]% 8.1 % 05/19/2017 Cbc With Differential Ord2 [...] 1.98 K/ul 05/19/2017 Cbc With Differential Ord2 [place] ABS# 0.5 K/ul 05/19/2017 Cbc With Differential Ord2 Eos ABS# 0.2 K/ul 05/19/2017 Cbc With Differential Ord2 Baso ABS# 0.0 K/ul 05/19/2017 Comp Metabolic Cmn352 NA 142 mEq/L 05/19/2017 Comp Metabolic Lpt741 K 4.2 mEq/L 05/19/2017 Comp Metabolic Xdr850 CL 105 mEq/L 05/19/2017 Comp Metabolic Pxc746 CO2 29.0 mEq/L 05/19/2017 Comp Metabolic Tsj249 AN ION GAP 12 05/19/2017 Comp Metabolic Wof337 GL UCOSE 95 mg/dL 05/19/2017 Comp Metabolic Txf659 Cr eat 0.7 mg/dL 05/19/2017 Comp Metabolic Qkl124 eG FR 90 ml/min/1.73m2 05/19 Comp Metabolic Itf364 BUN 14 mg/dL 05/19/2017 Comp Metabolic Vhu388 B/ C Ratio 20.3 Ratio 05/19/2017 Comp Metabolic Dzl425 CA LCIUM 9.1 mg/dL 05/19/2017 Comp Metabolic Gtt957 AL K PHOS 70 U/L 05/19/2017 Comp Metabolic Lrl483 T(SGOT) 17 U/L 05/19/2017 Comp Metabolic Hvy041 AL T(SGPT) 14 U/L 05/19/2017 Comp Metabolic Paj566 BI LI T 0.9 mg/dL 05/19/2017 Comp Metabolic Oql533 AL BUMIN 4.2 g/dL 05/19/2017 Comp Metabolic Ybs875 TP RO 6.4 g/dL 05/19/2017 Comp Metabolic Wxz777 GL OB 2.2 g/dL 05/19/2017 Comp Metabolic Pwd689 A/ G Ratio 1.9 Ratio 05/19/2017 Comp Metabolic Qdx471 Os mo 283 mOsmo 05/19/2017 Tsh Ord6 TSH (3rd IS) 1.28 uIU/mL 05/19/2017 Lipid Ord30 CHOL 213 mg/dL 05/19/2017 Lipid Ord30 HDL 79.0 mg/dl 05/19/2017 Lipid Ord30 TRIG 73 mg/dL 05/19/2017 Lipid Ord30 LDL 119 mg/dL 05/19/2017 Lipid Ord30 C/HDL 2.7 Ratio 05/19/2017 Influenza A+B Xpn026 Inf jeff A+B Negative 01/12/2017 Tsh Ord6 hTSH II 1.17 uIU/mL 10/29/2014 Comp Metabolic Tos025 NA 138 mEq/L 10/29/2014 Comp Metabolic Bse260 K 4.3 mEq/L 10/29/2014 Comp Metabolic Mmr822 CL 102 mEq/L 10/29/2014 Comp Metabolic Dso636 CO2 30.0 mEq/L 10/29/2014 Comp Metabolic Slq093 AN ION GAP 10 10/29/2014 Comp Metabolic Ulq040 GL UCOSE 76 mg/dL 10/29/2014 Comp Metabolic Aye724 Cr eat 0.8 mg/dL 10/29/2014 Comp Metabolic Bdd718 eG FR 81 ml/min/1.73m2 10/29 Comp Metabolic Xrn340 BUN 9 mg/dL 10/29/2014 Comp Metabolic Jns026 B/ C Ratio 11.8 Ratio 10/29/2014 Comp Metabolic Ejd564 CA LCIUM 9.1 mg/dL 10/29/2014 Comp Metabolic Mtb829 AL K PHOS 75 U/L 10/29/2014 Comp Metabolic Fjq339 T(SGOT) 14 U/L 10/29/2014 Comp Metabolic Oze795 AL T(SGPT) 12 U/L 10/29/2014 Comp Metabolic Zbv781 BI LI T 0.8 mg/dL 10/29/2014 Comp Metabolic Veg044 AL BUMIN 4.2 g/dL 10/29/2014 Comp Metabolic Gfe328 TP RO 6.6 g/dL 10/29/2014 Comp Metabolic Hdo794 GL OB 2.4 g/dL 10/29/2014 Comp Metabolic Pdh169 A/ G Ratio 1.8 Ratio 10/29/2014 Comp Metabolic Edv667 Os mo 273 mOsmo 10/29/2014 Lipid Ord30 [...] 1: 142/76 Code: 8480-6 BMI: 34.6 Code: 00262-9 Heart Rate 1: 84 bpm Height: 5'2" SpO2: 97% Weight: 189 lbs 11/30/2017 Blood Pressure 1: 146/70 Code: 8480-6 BMI: 32.4 Code: 72670-3 Heart Rate 1: 77 bpm Height: 5'2" SpO2: 97% Weight: 177 lbs 05/17/2017 Blood Pressure 1: 128/60 Code: 8480-6 BMI: 34.2 Code: 14274-0 Heart Rate 1: 91 bpm Height: 5'2" SpO2: 97% Waist Measure (cm): 84 cm Weight: 187 lbs 05/12/2016 Blood Pressure 1: 144/62 Code: 8480-6 BMI: 34.2 Code: 88404-7 Heart Rate 1: 83 bpm Height: 5'2" SpO2: 98% Waist Measure (cm): 97 cm Weight: 187 lbs 02/17/2016 Blood Pressure 1: 158/76 Code: 8480-6 BMI: 34.4 Code: 45182-0 Heart Rate 1: 82 bpm Height: 5'2" SpO2: 97% Weight: 188 lbs 04/14/2015 Blood Pressure 1: 132/60 Code: 8480-6 BMI: 32.0 Code: 74891-5 Heart Rate 1: 79 bpm Height: 5'2" SpO2: 97% Waist Measure (cm): 102 cm Weight: 175 lbs 12/23/2014 Blood Pressure 1: 128/72 Code: 8480-6 BMI: 31.1 Code: 12570-0 Heart Rate 1: 75 bpm Height: 5'2" SpO2: 98% Weight: 170 lbs 10/28/2014 Blood Pressure 1: 122/62 Code: 8480-6 BMI: 30.4 Code: 56089-7 Heart Rate 1: 83 bpm Height: 5'2" [...] Encounters Encounter Performer Loca tion Codes Date 16608 EST. PATIENT, LEVEL IV Diagnosis: Other acute sinusitis[ICD10: J01.80] Diagnosis: Other allergic rhinitis[ICD10: J30.89] Diagnosis: Impacted cerumen, bilateral[ICD10: H61.23] Cayla Najera MD, [facility] CPT-4: 20353 10/23/2018 [id number] EST. PATIENT, LEVEL IV Diagnosis: Gastro-esophageal reflux disease without esophagitis[ICD10: K21.9] Cayla Najera MD, [facility] CPT-4: 31168 09/13/2018 84824 EST. PATIENT, LEVEL III Diagnosis: Gastro-esophageal reflux disease without esophagitis[ICD10: K21.9] Diagnosis: Generalized anxiety disorder[ICD10: F41.1] Diagnosis: Major depressive disorder, single episode, moderate[ICD10: F32.1] Diagnosis: Thalassemia minor[ICD10: D56.3] Cayla Najera MD, [facility] CPT-4: 41667 11/30/2017 26673 EST. PATIENT, LEVEL III Diagnosis: Pain in right knee[ICD10: M25.561] Cayla Najera MD, [facility] CPT-4: 53270 02/17/2016 [id number] EST. PATIENT, LEVEL III Diagnosis: Benign paroxysmal vertigo, unspecified ear[ICD10: H81.10] Anita Najera MD [facility] CPT-4: 96403 12/23/2014 ([id number]) PREV VISIT N EW AGE 40-64 Diagnosis: Routine medical exam[ICD9: V70.0] Anita Najera MD, [facility] CPT-4: 63737 10/28/2014 Plan of Care Planned Activity Notes [...] not improving. 09/13/2018 Appointment: Cayla Villegas WPtel: [address] [place], [place] [phone] (30 min) [facility] 09/13/2018 Patient Education: Patient Medication Summary Completed [...] time. 11/30/2017 [facility] [phone] [phone] ([facility] Moderate 11/30/2017 Patient Education: [...] surrogate. 05/17/2017 App[facility]ment: [facility] [phone] [id number] [facility] - Annual Wellness Visit 05/17/2017 Patient Education: [...] at again. 05/12/2016 Appointment: Cayla Villegas WPtel: [facility] [facility] - Annual Wellness Visit 05/12/2016 Patient Education: Patient Medication Summary Completed 05/12/2016 Referral: Devin Schroeder Referral Initiated 02/26/2016 Care Plan: Referral Order SNOMED-CT : [id number] Pending 02/20/2016 Visit Plan: Right knee pain [...] Ortho 02/17/2016 App[facility]ment: [facility] [phone] [phone] (15 min) Moderate 02/17/2016 Patient Education: [...] current medications. 10/28/2014 Appointment: Anita Najera WPtel: [facility] New Patient 10/28/2014 Patient Education: Patient Medication [...]
--- OUTSIDE RECORDS SUMMARY | 2019-10-05 19:24 | XMS REPORT | CCD ---
Author Author Vaishali aNjera Organization Anita Najera MD, [facility] Address [address] [place] [address] Phone Care Team Providers Care Talent Director Name Role Phone PP Unavailable CCM Unavailable Summary Purpose Interface Exchange Insurance Providers Payer name Policy type / Coverage type Covered constitution party ID Effective Begin Date Effective End Date WPS Medicare Part B Medicare Part B [id number] Unknown Cigna Medicare Part B 80 [id number] Unknown Family history Father Diagnosis Age At Onset Colon cancer Unknown Mother Diagnosis Age At Onset Cancer Unknown Colon cancer Unknown Brother Diagnosis Age At Onset lung cancer Unknown Depression Unknown Social History Social History Element Codes Description Effective Dates Marital status Unknown M arried 10/28/2014 Number of children Unknown 2 10/28/2014 Employment Unknown Retir ed previously worked at the [employer] in the [employer] - sometimes substitues, 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 10/28/[address]: 724490383 Never smoker 10/28/[address]: 723466 Currently drinks alcohol 10/28/2014 Frequency of drinks SNOMED CT: 957259804 14 drinks per week - drinks about 3 nights a week - 4 - 5 beers at a time . 10/28/2014 Allergies, Adverse Reactions, Alerts Substance Reaction Codes Entered Date Inactivated Date Status * NO KNOWN DRUG KORY RGIES Unknown 10/28/2014 No Inactive Date Active Past Medical History Illness Codes Condition Status Onset Date Resolved Date Gastro-esophageal re flux disease without esophagitis ICD-9: [...] Condition Codes Effectiv e Dates Condition Status Gastro-esophageal re flux disease without esophagitis ICD-9: [...] Date Stop Date Sta tus Fill Instructions Protonix 40 mg table t,delayed release RxNorm: 412695 1 Tablet(s) PO daily 10/05/2018 02/01/2019 Ac tive Carafate 1 gram tablet RxNorm: 117114 1 Tablet(s) PO QID as needed 09/13/2018 10/12/2018 Active Protonix 40 mg table t,delayed release RxNorm: 958958 1 Tablet(s) PO daily 09/13/2018 09/26/2018 In active Prozac 20 mg capsule RxNorm: 873056 TAKE 1 CAPSULE BY MOUTH ONCE DAILY 08/09/2018 No Stop Date Active omeprazole 20 mg cap bernadette,delayed release RxNorm: 606826 TAKE 1 CAPSULE BY MEREDITH TH ONCE DAILY 08/07/2018 10/04/2018 Inactive Prozac 20 mg capsule RxNorm: 862425 TAKE 1 CAPSULE BY MOUTH ONCE DAILY 07/10/2018 08/08/2018 In active Prozac 20 mg capsule RxNorm: 854195 TAKE 1 CAPSULE BY MOUTH ONCE DAILY 12/29/2017 07/09/2018 In active Prozac 20 mg capsule RxNorm: 614010 TAKE 1 CAPSULE BY MOUTH ONCE DAILY 11/28/2017 12/28/2017 In active Prozac 20 mg capsule RxNorm: 611226 TAKE ONE CAPSULE BY MOUTH ONCE DAILY 08/22/2017 11/27/2017 In active omeprazole 20 mg cap bernadette,delayed release RxNorm: 430957 1 Capsule(s) PO daily 07/07/2017 01/02/2018 In active omeprazole 20 mg cap bernadette,delayed release RxNorm: 735631 1 Capsule(s) PO daily 05/17/2017 06/15/2017 In active Prozac 20 mg capsule RxNorm: 065918 TAKE ONE CAPSULE BY MOUTH ONCE DAILY 02/07/2017 08/21/2017 In active Zithromax Z-Feliberto 250 mg tablet RxNorm: 367253 1 Tablet(s) PO UD 01/13/2017 07/06/2017 Inactive zpack as directed Prozac 20 mg capsule RxNorm: 450787 TAKE ONE CAPSULE BY MOUTH ONCE DAILY 01/03/2017 02/06/2017 In active omeprazole 40 mg cap bernadette,delayed release RxNorm: 995021 TAKE ONE CAPSULE BY M OUTH EVERY OTHER DAY 01/03/2017 07/06/2017 Inactive Prozac 20 mg capsule RxNorm: 645830 TAKE ONE CAPSULE BY MOUTH ONCE DAILY 10/04/2016 01/01/2017 In active omeprazole 40 mg cap bernadette,delayed release RxNorm: 590306 TAKE ONE CAPSULE BY M OUTH EVERY OTHER DAY 05/24/2016 11/19/2016 Inactive Prozac 20 mg capsule RxNorm: 157550 TAKE ONE CAPSULE BY MOUTH ONCE DAILY 05/24/2016 09/20/2016 In active omeprazole 40 mg cap bernadette,delayed release RxNorm: 098341 TAKE ONE CAPSULE BY M OUTH EVERY OTHER DAY 03/22/2016 05/20/2016 Inactive Prozac 20 mg capsule RxNorm: 776116 Capsule(s) TAKE ONE CAPSULE BY MOUTH ONC E DAILY 11/18/2015 05/15/2016 Inactive Prozac 20 mg capsule RxNorm: 880050 Capsule(s) TAKE ONE CAPSULE BY MOUTH ONC E DAILY 09/16/2015 11/14/2015 Inactive omeprazole 40 mg cap bernadette,delayed release RxNorm: 610434 Capsule(s) 1 Capsule( s) PO every other day 08/29/2015 02/24/2016 Inactive Prozac 20 mg capsule RxNorm: 627258 Capsule(s) TAKE ONE CAPSULE BY MOUTH ONC E DAILY 07/22/2015 09/15/2015 Inactive Prozac 20 mg capsule RxNorm: 802152 Capsule(s) TAKE ONE CAPSULE BY MOUTH ONC E DAILY 05/19/2015 07/17/2015 Inactive Prozac 20 mg capsule RxNorm: 527124 TAKE ONE CAPSULE BY MOUTH ONCE DAILY 03/14/2015 05/12/2015 In active omeprazole 40 mg cap bernadette,delayed release RxNorm: 359823 1 Capsule(s) PO every other day 02/06/2015 08/04/2015 Inactive omeprazole 40 mg cap bernadette,delayed release RxNorm: 766743 1 Capsule(s) PO every other day 01/06/2015 02/04/2015 Inactive Prozac 20 mg capsule RxNorm: 336517 1 Capsule(s) PO daily 11/04/2014 03/03/2015 Inactive Prozac 40 mg capsule RxNorm: 358042 1 Capsule(s) PO daily 10/28/2014 11/03/2014 Inactive omeprazole 40 mg cap bernadette,delayed release RxNorm: 242128 1 Capsule(s) PO every other day 10/28/2014 11/26/2014 Inactive Prozac oral RxNorm: 220253 oral No Start Date 10/27/2014 Inactive Zithromax Z-Feliberto 250 mg tablet RxNorm: 548565 1 Tablet(s) PO UD No Start Date 01/12/2017 Inactive zpack as directed Protonix 40 mg table t,delayed release RxNorm: 322726 1 Tablet(s) PO daily No Start Date 10/28/2014 Inactive Medication Administered No Medication Administered data Immunizations No Immunization data Assessments Condition Codes Effectiv e Dates Gastro-esophageal reflux disease without esophagitis ICD-10: K21.9 [...] Visit Reason For Visit Effective Dates Notes abdominal pain 09/13/2018 medication follow up 11/30/2017 Annual Medicare Wellness Exam 05/17/2017 Annual Medicare Wellness Exam 05/12/2016 knee pain 02/17/2016 Annual Medicare Wellness Exam 04/14/2015 vertigo 12/23/2014 depression 10/28/2014 delano issas prozac Results Observation Observation Code Item Item [...] 22.0 pg 09/13/2018 Cbc With Differential Ord2 Barry% 8.0 % 09/13/2018 Cbc With Differential Ord2 [...] 2.13 K/ul 09/13/2018 Cbc With Differential Ord2 Barry ABS# 0.7 K/ul 09/13/2018 Cbc With Differential Ord2 Eos ABS# 0.2 K/ul 09/13/2018 Cbc With Differential Ord2 Baso ABS# 0.0 K/ul 09/13/2018 Comp Metabolic Ocq847 NA 137 mEq/L 09/13/2018 Comp Metabolic Hhd996 K 4.3 mEq/L 09/13/2018 Comp Metabolic Fef728 CL 101 mEq/L 09/13/2018 Comp Metabolic Syl237 CO2 28.0 mEq/L 09/13/2018 Comp Metabolic Tzf458 AN ION GAP 12 09/13/2018 Comp Metabolic Zrx833 GL UCOSE 97 mg/dL 09/13/2018 Comp Metabolic Bru105 Cr eat 0.9 mg/dL 09/13/2018 Comp Metabolic Qpb671 eG FR 64 ml/min/1.73m2 09/13 Comp Metabolic Vtb264 BUN 16 mg/dL 09/13/2018 Comp Metabolic Ygc818 B/ C Ratio 17.2 Ratio 09/13/2018 Comp Metabolic Kfi442 CA LCIUM 9.6 mg/dL 09/13/2018 Comp Metabolic Imr292 AL K PHOS 94 U/L 09/13/2018 Comp Metabolic Nxi881 T(SGOT) 49 U/L 09/13/2018 Comp Metabolic Kjz850 AL T(SGPT) 29 U/L 09/13/2018 Comp Metabolic Emi202 BI LI T 1.2 mg/dL 09/13/2018 Comp Metabolic Rvt669 AL BUMIN 4.3 g/dL 09/13/2018 Comp Metabolic Jzs924 TP RO 7.0 g/dL 09/13/2018 Comp Metabolic Oca845 GL OB 2.7 g/dL 09/13/2018 Comp Metabolic Bgu891 A/ G Ratio 1.6 Ratio 09/13/2018 Comp Metabolic Qet925 Os mo 275 mOsmo 09/13/2018 Cbc With [...] 21.9 pg 05/19/2017 Cbc With Differential Ord2 Barry% 8.1 % 05/19/2017 Cbc With Differential Ord2 [...] 1.98 K/ul 05/19/2017 Cbc With Differential Ord2 Barry ABS# 0.5 K/ul 05/19/2017 Cbc With Differential Ord2 Eos ABS# 0.2 K/ul 05/19/2017 Cbc With Differential Ord2 Baso ABS# 0.0 K/ul 05/19/2017 Comp Metabolic Xul687 NA 142 mEq/L 05/19/2017 Comp Metabolic Iwe136 K 4.2 mEq/L 05/19/2017 Comp Metabolic Vri222 CL 105 mEq/L 05/19/2017 Comp Metabolic Mqg081 CO2 29.0 mEq/L 05/19/2017 Comp Metabolic Bjl703 AN ION GAP 12 05/19/2017 Comp Metabolic Izw413 GL UCOSE 95 mg/dL 05/19/2017 Comp Metabolic Oxn511 Cr eat 0.7 mg/dL 05/19/2017 Comp Metabolic Aud401 eG FR 90 ml/min/1.73m2 05/19 Comp Metabolic Rpf315 BUN 14 mg/dL 05/19/2017 Comp Metabolic Ads015 B/ C Ratio 20.3 Ratio 05/19/2017 Comp Metabolic Bgv178 CA LCIUM 9.1 mg/dL 05/19/2017 Comp Metabolic Vuf167 AL K PHOS 70 U/L 05/19/2017 Comp Metabolic Kns383 T(SGOT) 17 U/L 05/19/2017 Comp Metabolic Ygl997 AL T(SGPT) 14 U/L 05/19/2017 Comp Metabolic Gwv769 BI LI T 0.9 mg/dL 05/19/2017 Comp Metabolic Ibl268 AL BUMIN 4.2 g/dL 05/19/2017 Comp Metabolic Rzj166 TP RO 6.4 g/dL 05/19/2017 Comp Metabolic Zmx344 GL OB 2.2 g/dL 05/19/2017 Comp Metabolic Phf712 A/ G Ratio 1.9 Ratio 05/19/2017 Comp Metabolic Lzx053 Os mo 283 mOsmo 05/19/2017 Tsh Ord6 TSH (3rd IS) 1.28 uIU/mL 05/19/2017 Lipid Ord30 CHOL 213 mg/dL 05/19/2017 Lipid Ord30 HDL 79.0 mg/dl 05/19/2017 Lipid Ord30 TRIG 73 mg/dL 05/19/2017 Lipid Ord30 LDL 119 mg/dL 05/19/2017 Lipid Ord30 C/HDL 2.7 Ratio 05/19/2017 Influenza A+B Kna591 Inf jeff A+B Negative 01/12/2017 Tsh Ord6 hTSH II 1.17 uIU/mL 10/29/2014 Comp Metabolic Crt842 NA 138 mEq/L 10/29/2014 Comp Metabolic Jks429 K 4.3 mEq/L 10/29/2014 Comp Metabolic Ria425 CL 102 mEq/L 10/29/2014 Comp Metabolic Mbw686 CO2 30.0 mEq/L 10/29/2014 Comp Metabolic Jqj097 AN ION GAP 10 10/29/2014 Comp Metabolic Eqb759 GL UCOSE 76 mg/dL 10/29/2014 Comp Metabolic Jxw900 Cr eat 0.8 mg/dL 10/29/2014 Comp Metabolic Mbf450 eG FR 81 ml/min/1.73m2 10/29 Comp Metabolic Yxd079 BUN 9 mg/dL 10/29/2014 Comp Metabolic Bfu622 B/ C Ratio 11.8 Ratio 10/29/2014 Comp Metabolic Ffg172 CA LCIUM 9.1 mg/dL 10/29/2014 Comp Metabolic Vob612 AL K PHOS 75 U/L 10/29/2014 Comp Metabolic Tdf038 T(SGOT) 14 U/L 10/29/2014 Comp Metabolic Xbj457 AL T(SGPT) 12 U/L 10/29/2014 Comp Metabolic Fnl152 BI LI T 0.8 mg/dL 10/29/2014 Comp Metabolic Wet252 AL BUMIN 4.2 g/dL 10/29/2014 Comp Metabolic Qmw085 TP RO 6.6 g/dL 10/29/2014 Comp Metabolic Tej796 GL OB 2.4 g/dL 10/29/2014 Comp Metabolic Odt334 A/ G Ratio 1.8 Ratio 10/29/2014 Comp Metabolic Ixm760 Os mo 273 mOsmo 10/29/2014 Lipid Ord30 [...] System Result Effective Dates Constitutional recent illness 09/13/2018 Constitutional No chills [...] Result Effective Dates Notes Full Exam - General 1994 Constitutional general [...] CPT-4: G0402 04/14/2015 Vital Signs Date Vital 09/13/2018 Blood Pressure 1: 142/76 Code: 8480-6 BMI: 34.6 Code: 99090-5 Heart Rate 1: 84 bpm Height: 5'2" SpO2: 97% Weight: 189 lbs 11/30/2017 Blood Pressure 1: 146/70 Code: 8480-6 BMI: 32.4 Code: 53797-0 Heart Rate 1: 77 bpm Height: 5'2" SpO2: 97% Weight: 177 lbs 05/17/2017 Blood Pressure 1: 128/60 Code: 8480-6 BMI: 34.2 Code: 09882-4 Heart Rate 1: 91 bpm Height: 5'2" SpO2: 97% Waist Measure (cm): 84 cm Weight: 187 lbs 05/12/2016 Blood Pressure 1: 144/62 Code: 8480-6 BMI: 34.2 Code: 31609-6 Heart Rate 1: 83 bpm Height: 5'2" SpO2: 98% Waist Measure (cm): 97 cm Weight: 187 lbs 02/17/2016 Blood Pressure 1: 158/76 Code: 8480-6 BMI: 34.4 Code: 39237-3 Heart Rate 1: 82 bpm Height: 5'2" SpO2: 97% Weight: 188 lbs 04/14/2015 Blood Pressure 1: 132/60 Code: 8480-6 BMI: 32.0 Code: 81482-2 Heart Rate 1: 79 bpm Height: 5'2" SpO2: 97% Waist Measure (cm): 102 cm Weight: 175 lbs 12/23/2014 Blood Pressure 1: 128/72 Code: 8480-6 BMI: 31.1 Code: 30605-8 Heart Rate 1: 75 bpm Height: 5'2" SpO2: 98% Weight: 170 lbs 10/28/2014 Blood Pressure 1: 122/62 Code: 8480-6 BMI: 30.4 Code: 53297-9 Heart Rate 1: 83 bpm Height: 5'2" SpO2: 98% Weight: 166 lbs Functional Status No Functional Status data History of Present Illness Symptom Name Status Resu lt Effective Date Notes Location in the [facility] 09/13/2018 None Quality burning 09/13/2018 None Quality [...] Encounters Encounter Performer Loca tion Codes Date EST. PATIENT, LEVEL IV Diagnosis: Gastro-esophageal reflux disease without esophagitis[ICD10: K21.9] Cayla Najera MD, [facility] CPT-4: 89103 09/13/2018 [id number] EST. PATIENT, LEVEL III Diagnosis: Gastro-esophageal reflux disease without esophagitis[ICD10: K21.9] Diagnosis: Generalized anxiety disorder[ICD10: F41.1] Diagnosis: Major depressive disorder, single episode, moderate[ICD10: F32.1] Diagnosis: Thalassemia minor[ICD10: D56.3] Cayla Najera MD, [facility] CPT-4: 05788 11/30/2017 [id number] EST. PATIENT, LEVEL III Diagnosis: Pain in right knee[ICD10: M25.561] Cayla Najera MD, [facility] CPT-4: 10403 02/17/2016 [id number] EST. PATIENT, LEVEL III Diagnosis: Benign paroxysmal vertigo, unspecified ear[ICD10: H81.10] Anita Najera MD, [facility] CPT-4: 53159 12/23/2014 ([id number]) PREV VISIT N EW AGE 40-64 Diagnosis: Routine medical exam[ICD9: V70.0] Anita Najera MD, [facility] CPT-4: 49176 10/28/2014 Plan of Care Planned Activity Notes C odes Status Date Visit Plan: Esophageal Reflux - the patient has been counseled against excessive intake of caffeine, spicy foods, peppermint, and cinnamon - all of which can exacerbate esophageal reflux. The patient is to take medications as prescribed and call the office if the symptoms are not improving. 09/13/2018 [facility] [phone] [id number] ([facility] Complex 09/13/2018 Patient Education: Patient [...] time. 11/30/2017 Appointment: [facility] [phone] [facility] (15 min) Moderate 11/30/2017 Patient Education: [...] surrogate. 05/17/2017 App[facility]ment: [facility] [phone] [facility] [facility] - Annual Wellness Visit 05/17/2017 Patient [...] again. 05/12/2016 App[facility]ment: [facility] [phone] [facility] [facility] - Annual Wellness Visit 05/12/2016 Patient Education: Patient Medication Summary Completed 05/12/2016 Referral: Devin Schroeder Referral Initiated 02/26/2016 Care Plan: Referral Order SNOMED-CT : [id number] Pending 02/20/2016 Visit Plan: Right knee pain [...] to Ortho 02/17/2016 Appointment: Camila Martines WPtel: [phone] (15 min) Moderate 02/17/2016 Patient Education: Patient [...] medications. 10/28/2014 Appointment: Anita Najera WPtel[facility] [facility] 10/28/2014 Patient Education: Patient Medication [...] will order MRI or refer to Ortho Do exercises for rachael harman, notify clinic if symptoms do not improve. . BPPV - Pt has dizziness with position changes at night, and occasionally when going from sitting to standing - Orthostatic blood pressures - OK - lying 128/70, sitting 126/70, standing 126/72. Will give patient BPPV exercises to practice. Notify clinic if symptoms do not improve or worsen.
--- OUTSIDE RECORDS SUMMARY | 2019-10-05 19:25 | XMS REPORT | CCD ---
Author Author Vaishali Najera Organization Anita Najera MD, [facility] Address [address] [place] [address] Phone Care Team Providers Care Pullman Conductor Name Role Phone PP Unavailable CCM Unavailable Summary Purpose Interface Exchange Insurance Providers Payer name Policy type / Coverage type Covered democrat ID Effective Begin Date Effective End Date WPS Medicare Part B Medicare Part B [id number] Unknown Cigna Medicare Part B 80 [id number] Unknown Family history Father Diagnosis Age At Onset Colon cancer Unknown Mother Diagnosis Age At Onset Cancer Unknown Colon cancer Unknown Brother Diagnosis Age At Onset lung cancer Unknown Depression Unknown Social History Social History Element Codes Description Effective Dates Marital status Unknown M arried 10/28/2014 Number of children Unknown 2 10/28/2014 Employment Unknown Retir ed previously worked at the [employer] in the [employer] - sometimes substitues, 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 10/28/[address]: 707811986 Never smoker 10/28/[address]: 085761 Currently drinks alcohol 10/28/2014 Frequency of drinks SNOMED CT: 069321677 14 drinks per week - drinks about [...] ICD-9: 530.81 ICD-10: K21.9 Active 11/30/2017 Unknown Generalized anxiety disorder ICD-9: 300.00 ICD-10: F41.1 Active 11/30/2017 Unknown Major depressive dis order, single episode, moderate ICD-9: 296.22 ICD-10: F32.1 Active 11/30/2017 Unknown Thalassemia minor ICD-9: 282.46 ICD-10: D56.3 Active 05/17/2017 Unknown Encounter for genera l adult medical [...] esophagitis ICD-9: 530.81 ICD-10: K21.9 11/30/2017 Active Generalized anxiety disorder ICD-9: 300.00 ICD-10: F41.1 11/30/2017 Active Major depressive dis order, single episode, moderate ICD-9: 296.22 ICD-10: F32.1 11/30/2017 Active Thalassemia minor ICD-9: 282.46 ICD-10: D56.3 05/17/2017 Active Encounter for genera l adult medical [...] Date Stop Date Sta tus Fill Instructions Prozac 20 mg capsule RxNorm: 215468 TAKE 1 CAPSULE BY MOUTH ONCE DAILY 08/09/2018 No Stop Date Active omeprazole 20 mg cap bernadette,delayed release RxNorm: 921651 TAKE 1 CAPSULE BY MEREDITH TH ONCE DAILY 08/07/2018 No Stop Date Active Prozac 20 mg capsule RxNorm: 267853 TAKE 1 CAPSULE BY MOUTH ONCE DAILY 07/10/2018 08/08/2018 In active Prozac 20 mg capsule RxNorm: 332343 TAKE 1 CAPSULE BY MOUTH ONCE DAILY 12/29/2017 07/09/2018 In active Prozac 20 mg capsule RxNorm: 031757 TAKE 1 CAPSULE BY MOUTH ONCE DAILY 11/28/2017 12/28/2017 In active Prozac 20 mg capsule RxNorm: 267477 TAKE ONE CAPSULE BY MOUTH ONCE DAILY 08/22/2017 11/27/2017 In active omeprazole 20 mg cap bernadette,delayed release RxNorm: 577278 1 Capsule(s) PO daily 07/07/2017 01/02/2018 In active omeprazole 20 mg cap bernadette,delayed release RxNorm: 588320 1 Capsule(s) PO daily 05/17/2017 06/15/2017 In active Prozac 20 mg capsule RxNorm: 483613 TAKE ONE CAPSULE BY MOUTH ONCE DAILY 02/07/2017 08/21/2017 In active Zithromax Z-Feliberto 250 mg tablet RxNorm: 725114 1 Tablet(s) PO UD 01/13/2017 07/06/2017 Inactive zpack as directed Prozac 20 mg capsule RxNorm: 504229 TAKE ONE CAPSULE BY MOUTH ONCE DAILY 01/03/2017 02/06/2017 In active omeprazole 40 mg cap bernadette,delayed release RxNorm: 849176 TAKE ONE CAPSULE BY M OUTH EVERY OTHER DAY 01/03/2017 07/06/2017 Inactive Prozac 20 mg capsule RxNorm: 172853 TAKE ONE CAPSULE BY MOUTH ONCE DAILY 10/04/2016 01/01/2017 In active omeprazole 40 mg cap bernadette,delayed release RxNorm: 909440 TAKE ONE CAPSULE BY M OUTH EVERY OTHER DAY 05/24/2016 11/19/2016 Inactive Prozac 20 mg capsule RxNorm: 813484 TAKE ONE CAPSULE BY MOUTH ONCE DAILY 05/24/2016 09/20/2016 In active omeprazole 40 mg cap bernadette,delayed release RxNorm: 701157 TAKE ONE CAPSULE BY M OUTH EVERY OTHER DAY 03/22/2016 05/20/2016 Inactive Prozac 20 mg capsule RxNorm: 556218 Capsule(s) TAKE ONE CAPSULE BY MOUTH ONC E DAILY 11/18/2015 05/15/2016 Inactive Prozac 20 mg capsule RxNorm: 246058 Capsule(s) TAKE ONE CAPSULE BY MOUTH ONC E DAILY 09/16/2015 11/14/2015 Inactive omeprazole 40 mg cap bernadette,delayed release RxNorm: 994210 Capsule(s) 1 Capsule( s) PO every other day 08/29/2015 02/24/2016 Inactive Prozac 20 mg capsule RxNorm: 220389 Capsule(s) TAKE ONE CAPSULE BY MOUTH ONC E DAILY 07/22/2015 09/15/2015 Inactive Prozac 20 mg capsule RxNorm: 654990 Capsule(s) TAKE ONE CAPSULE BY MOUTH ONC E DAILY 05/19/2015 07/17/2015 Inactive Prozac 20 mg capsule RxNorm: 356268 TAKE ONE CAPSULE BY MOUTH ONCE DAILY 03/14/2015 05/12/2015 In active omeprazole 40 mg cap bernadette,delayed release RxNorm: 785573 1 Capsule(s) PO every other day 02/06/2015 08/04/2015 Inactive omeprazole 40 mg cap bernadette,delayed release RxNorm: 410581 1 Capsule(s) PO every other day 01/06/2015 02/04/2015 Inactive Prozac 20 mg capsule RxNorm: 581815 1 Capsule(s) PO daily 11/04/2014 03/03/2015 Inactive Prozac 40 mg capsule RxNorm: 682871 1 Capsule(s) PO daily 10/28/2014 11/03/2014 Inactive omeprazole 40 mg cap bernadette,delayed release RxNorm: 628050 1 Capsule(s) PO every other day 10/28/2014 11/26/2014 Inactive Prozac oral RxNorm: 898109 oral No Start Date 10/27/2014 Inactive Zithromax Z-Feliberto 250 mg tablet RxNorm: 845903 1 Tablet(s) PO UD No Start Date 01/12/2017 Inactive zpack as directed Protonix 40 mg table t,delayed release RxNorm: 144925 1 Tablet(s) PO daily No Start Date 10/28/2014 Inactive Medication Administered No Medication Administered data Immunizations No Immunization data Assessments Condition Codes Effectiv e Dates Gastro-esophageal reflux disease without esophagitis ICD-10: K21.9 ICD-9: 530.81 11/30/2017 Major depressive disorder, single episode, moderate ICD-10: [...] Visit Reason For Visit Effective Dates Notes medication follow up 11/30/2017 Annual Medicare Wellness Exam 05/17/2017 Annual Medicare Wellness Exam 05/12/2016 knee pain 02/17/2016 Annual Medicare Wellness Exam 04/14/2015 vertigo 12/23/2014 depression 10/28/2014 delano cuadra Results Observation Observation Code Item Item Code Result Date Cbc With Differential Ord2 WBC 5.67 K/ul [...] 21.9 pg 05/19/2017 Cbc With Differential Ord2 [place]% 8.1 % 05/19/2017 Cbc With Differential Ord2 [...] 1.98 K/ul 05/19/2017 Cbc With Differential Ord2 [place] ABS# 0.5 K/ul 05/19/2017 Cbc With Differential Ord2 Eos ABS# 0.2 K/ul 05/19/2017 Cbc With Differential Ord2 Baso ABS# 0.0 K/ul 05/19/2017 Comp Metabolic Poa821 NA 142 mEq/L 05/19/2017 Comp Metabolic Aaq940 K 4.2 mEq/L 05/19/2017 Comp Metabolic Mcf042 CL 105 mEq/L 05/19/2017 Comp Metabolic Iva749 CO2 29.0 mEq/L 05/19/2017 Comp Metabolic Kua706 AN ION GAP 12 05/19/2017 Comp Metabolic Ugq097 GL UCOSE 95 mg/dL 05/19/2017 Comp Metabolic Zkx367 Cr eat 0.7 mg/dL 05/19/2017 Comp Metabolic Lbk070 eG FR 90 ml/min/1.73m2 05/19 Comp Metabolic Agk073 BUN 14 mg/dL 05/19/2017 Comp Metabolic Ipt989 B/ C Ratio 20.3 Ratio 05/19/2017 Comp Metabolic Mwh626 CA LCIUM 9.1 mg/dL 05/19/2017 Comp Metabolic Ova513 AL K PHOS 70 U/L 05/19/2017 Comp Metabolic Djj898 T(SGOT) 17 U/L 05/19/2017 Comp Metabolic Btj666 AL T(SGPT) 14 U/L 05/19/2017 Comp Metabolic Rvm192 BI LI T 0.9 mg/dL 05/19/2017 Comp Metabolic Ofo720 AL BUMIN 4.2 g/dL 05/19/2017 Comp Metabolic Mnr730 TP RO 6.4 g/dL 05/19/2017 Comp Metabolic Tnu539 GL OB 2.2 g/dL 05/19/2017 Comp Metabolic Gpt105 A/ G Ratio 1.9 Ratio 05/19/2017 Comp Metabolic Whb361 Os mo 283 mOsmo 05/19/2017 Tsh Ord6 TSH (3rd IS) 1.28 uIU/mL 05/19/2017 Lipid Ord30 CHOL 213 mg/dL 05/19/2017 Lipid Ord30 HDL 79.0 mg/dl 05/19/2017 Lipid Ord30 TRIG 73 mg/dL 05/19/2017 Lipid Ord30 LDL 119 mg/dL 05/19/2017 Lipid Ord30 C/HDL 2.7 Ratio 05/19/2017 Influenza A+B Ldx208 Inf jeff A+B Negative 01/12/2017 Tsh Ord6 hTSH II 1.17 uIU/mL 10/29/2014 Comp Metabolic Hdr937 NA 138 mEq/L 10/29/2014 Comp Metabolic Mjq160 K 4.3 mEq/L 10/29/2014 Comp Metabolic Oqz280 CL 102 mEq/L 10/29/2014 Comp Metabolic Jol789 CO2 30.0 mEq/L 10/29/2014 Comp Metabolic Jgl212 AN ION GAP 10 10/29/2014 Comp Metabolic Uba130 GL UCOSE 76 mg/dL 10/29/2014 Comp Metabolic Eob517 Cr eat 0.8 mg/dL 10/29/2014 Comp Metabolic Eyw094 eG FR 81 ml/min/1.73m2 10/29 Comp Metabolic Cbz625 BUN 9 mg/dL 10/29/2014 Comp Metabolic Ssr987 B/ C Ratio 11.8 Ratio 10/29/2014 Comp Metabolic Ccf081 CA LCIUM 9.1 mg/dL 10/29/2014 Comp Metabolic Uyh975 AL K PHOS 75 U/L 10/29/2014 Comp Metabolic Kto500 T(SGOT) 14 U/L 10/29/2014 Comp Metabolic Rdr511 AL T(SGPT) 12 U/L 10/29/2014 Comp Metabolic Nci565 BI LI T 0.8 mg/dL 10/29/2014 Comp Metabolic Kzi697 AL BUMIN 4.2 g/dL 10/29/2014 Comp Metabolic Tkt778 TP RO 6.6 g/dL 10/29/2014 Comp Metabolic Vev953 GL OB 2.4 g/dL 10/29/2014 Comp Metabolic Hdf798 A/ G Ratio 1.8 Ratio 10/29/2014 Comp Metabolic Uqz678 Os mo 273 mOsmo 10/29/2014 Lipid Ord30 [...] of Systems System Result Effective Dates Constitutional No recent illness 11/30/2017 Constitutional No [...] contact 11/30/2017 None Full Exam - General 1995 Constitutional general appearance Overall: well developed 05/17/2017 [...] CPT-4: G0402 04/14/2015 Vital Signs Date Vital 11/30/2017 Blood Pressure 1: 146/70 Code: 8480-6 BMI: 32.4 Code: 40898-3 Heart Rate 1: 77 bpm Height: 5'2" SpO2: 97% Weight: 177 lbs 05/17/2017 Blood Pressure 1: 128/60 Code: 8480-6 BMI: 34.2 Code: 05126-1 Heart Rate 1: 91 bpm Height: 5'2" SpO2: 97% Waist Measure (cm): 84 cm Weight: 187 lbs 05/12/2016 Blood Pressure 1: 144/62 Code: 8480-6 BMI: 34.2 Code: 43977-5 Heart Rate 1: 83 bpm Height: 5'2" SpO2: 98% Waist Measure (cm): 97 cm Weight: 187 lbs 02/17/2016 Blood Pressure 1: 158/76 Code: 8480-6 BMI: 34.4 Code: 73305-7 Heart Rate 1: 82 bpm Height: 5'2" SpO2: 97% Weight: 188 lbs 04/14/2015 Blood Pressure 1: 132/60 Code: 8480-6 BMI: 32.0 Code: 87490-7 Heart Rate 1: 79 bpm Height: 5'2" SpO2: 97% Waist Measure (cm): 102 cm Weight: 175 lbs 12/23/2014 Blood Pressure 1: 128/72 Code: 8480-6 BMI: 31.1 Code: 21078-5 Heart Rate 1: 75 bpm Height: 5'2" SpO2: 98% Weight: 170 lbs 10/28/2014 Blood Pressure 1: 122/62 Code: 8480-6 BMI: 30.4 Code: 37066-8 Heart Rate 1: 83 bpm Height: 5'2" SpO2: 98% Weight: 166 lbs Functional Status No Functional Status data History of Present Illness Symptom Name Status Resu lt Effective Date Notes medication follow up Additional Comments medication use [...] Encounters Encounter Performer Loca tion Codes Date 25345 EST. PATIENT, LEVEL III Diagnosis: Gastro-esophageal reflux disease without esophagitis[ICD10: K21.9] Diagnosis: Generalized anxiety disorder[ICD10: F41.1] Diagnosis: Major depressive disorder, single episode, moderate[ICD10: F32.1] Diagnosis: Thalassemia minor[ICD10: D56.3] Cayla Najera MD, [facility] CPT-4: 88394 11/30/2017 36558 EST. PATIENT, LEVEL III Diagnosis: Pain in right knee[ICD10: M25.561] Cayla Najera MD, [facility] CPT-4: 59610 02/17/2016 58660 EST. PATIENT, LEVEL III Diagnosis: Benign paroxysmal vertigo, unspecified ear[ICD10: H81.10] Anita Najera MD, [facility] CPT-4: 94222 12/23/2014 ([id number]) PREV VISIT N EW AGE 40-64 Diagnosis: Routine medical exam[ICD9: V70.0] Anita Najera MD, [facility] CPT-4: 04726 10/28/2014 Plan of Care Planned Activity Notes [...] this time. 11/30/2017 Appointment: Cayla Villegas WPtel: [address] [place], [place] [phone] (15 min) Moderate 11/30/2017 Patient Education: Patient [...] surrogate. 05/17/2017 Appointment: [facility] [phone] [id number] [facility] - Annual Wellness Visit 05/17/2017 [...] at again. 05/12/2016 Appointment: [facility] [phone] [id number] [facility] - Annual Wellness Visit 05/12/2016 Patient Education: Patient Medication Summary Completed 05/12/2016 Referral: Devin Schroeder Referral Initiated 02/26/2016 Care Plan: Referral Order SNOMED-CT : 130281986 Pending 02/20/2016 Visit Plan: Right knee pain [...] to Ortho 02/17/2016 Appointment: Camila Martines WPtel: [phone] [facility] (15 min) Moderate 02/17/2016 Patient Education: Patient [...] current medications. 10/28/2014 Appointment: Anita Najera WPtel: [facility] [place] 2[place] New Patient 10/28/2014 Patient Education: Patient Medication [...] and to maintain independece in the home. Ibuprofen you can do 800mg three times [...]
--- OUTSIDE RECORDS SUMMARY | 2019-10-05 19:25 | XMS REPORT | CCD ---
Author Author Vaishali Najera Organization Anita Najera MD, [facility] Address [address] [place] [address] Phone Care Team Providers Care Systems Spec Name Role Phone PP Unavailable CCM Unavailable Summary Purpose Interface Exchange Insurance Providers Payer name Policy type / Coverage type Covered green party ID Effective Begin Date Effective End Date WPS Medicare Part B Medicare Part B [id number] Unknown Cigna Medicare Part B 80 [id number] Unknown Family history Father Diagnosis Age At Onset Colon cancer Unknown Mother Diagnosis Age At Onset Cancer Unknown Colon cancer Unknown Brother Diagnosis Age At Onset lung cancer Unknown Depression Unknown Social History Social History Element Codes Description Effective Dates Marital status Unknown M arried 10/28/2014 Number of children Unknown 2 10/28/2014 Employment Unknown Retir ed previously worked at the [employer] in the [place] - sometimes substitues, 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 10/28/[address]: 712462461 Never smoker 10/28/[address]: 720948 Currently drinks alcohol 10/28/2014 Frequency of drinks SNOMED CT: 976534416 14 drinks per week - drinks about [...] Date Stop Date Sta tus Fill Instructions omeprazole 20 mg cap bernadette,delayed release RxNorm: 615980 TAKE 1 CAPSULE BY MEREDITH TH ONCE DAILY 08/07/2018 No Stop Date Active Prozac 20 mg capsule RxNorm: 304107 TAKE 1 CAPSULE BY MOUTH ONCE DAILY 07/10/2018 No Stop Date Active Prozac 20 mg capsule RxNorm: 879388 TAKE 1 CAPSULE BY MOUTH ONCE DAILY 12/29/2017 07/09/2018 In active Prozac 20 mg capsule RxNorm: 081006 TAKE 1 CAPSULE BY MOUTH ONCE DAILY 11/28/2017 12/28/2017 In active Prozac 20 mg capsule RxNorm: 663382 TAKE ONE CAPSULE BY MOUTH ONCE DAILY 08/22/2017 11/27/2017 In active omeprazole 20 mg cap bernadette,delayed release RxNorm: 771616 1 Capsule(s) PO daily 07/07/2017 01/02/2018 In active omeprazole 20 mg cap bernadette,delayed release RxNorm: 691128 1 Capsule(s) PO daily 05/17/2017 06/15/2017 In active Prozac 20 mg capsule RxNorm: 525961 TAKE ONE CAPSULE BY MOUTH ONCE DAILY 02/07/2017 08/21/2017 In active Zithromax Z-Feliberto 250 mg tablet RxNorm: 332345 1 Tablet(s) PO UD 01/13/2017 07/06/2017 Inactive zpack as directed Prozac 20 mg capsule RxNorm: 359889 TAKE ONE CAPSULE BY MOUTH ONCE DAILY 01/03/2017 02/06/2017 In active omeprazole 40 mg cap bernadette,delayed release RxNorm: 638715 TAKE ONE CAPSULE BY M OUTH EVERY OTHER DAY 01/03/2017 07/06/2017 Inactive Prozac 20 mg capsule RxNorm: 957339 TAKE ONE CAPSULE BY MOUTH ONCE DAILY 10/04/2016 01/01/2017 In active omeprazole 40 mg cap bernadette,delayed release RxNorm: 713103 TAKE ONE CAPSULE BY M OUTH EVERY OTHER DAY 05/24/2016 11/19/2016 Inactive Prozac 20 mg capsule RxNorm: 953590 TAKE ONE CAPSULE BY MOUTH ONCE DAILY 05/24/2016 09/20/2016 In active omeprazole 40 mg cap bernadette,delayed release RxNorm: 523848 TAKE ONE CAPSULE BY M OUTH EVERY OTHER DAY 03/22/2016 05/20/2016 Inactive Prozac 20 mg capsule RxNorm: 245421 Capsule(s) TAKE ONE CAPSULE BY MOUTH ONC E DAILY 11/18/2015 05/15/2016 Inactive Prozac 20 mg capsule RxNorm: 511099 Capsule(s) TAKE ONE CAPSULE BY MOUTH ONC E DAILY 09/16/2015 11/14/2015 Inactive omeprazole 40 mg cap bernadette,delayed release RxNorm: 932610 Capsule(s) 1 Capsule( s) PO every other day 08/29/2015 02/24/2016 Inactive Prozac 20 mg capsule RxNorm: 702536 Capsule(s) TAKE ONE CAPSULE BY MOUTH ONC E DAILY 07/22/2015 09/15/2015 Inactive Prozac 20 mg capsule RxNorm: 726139 Capsule(s) TAKE ONE CAPSULE BY MOUTH ONC E DAILY 05/19/2015 07/17/2015 Inactive Prozac 20 mg capsule RxNorm: 413152 TAKE ONE CAPSULE BY MOUTH ONCE DAILY 03/14/2015 05/12/2015 In active omeprazole 40 mg cap bernadette,delayed release RxNorm: 133176 1 Capsule(s) PO every other day 02/06/2015 08/04/2015 Inactive omeprazole 40 mg cap bernadette,delayed release RxNorm: 366172 1 Capsule(s) PO every other day 01/06/2015 02/04/2015 Inactive Prozac 20 mg capsule RxNorm: 884548 1 Capsule(s) PO daily 11/04/2014 03/03/2015 Inactive Prozac 40 mg capsule RxNorm: 392303 1 Capsule(s) PO daily 10/28/2014 11/03/2014 Inactive omeprazole 40 mg cap bernadette,delayed release RxNorm: 395296 1 Capsule(s) PO every other day 10/28/2014 11/26/2014 Inactive Prozac oral RxNorm: 739098 oral No Start Date 10/27/2014 Inactive Zithromax Z-Feliberto 250 mg tablet RxNorm: 932996 1 Tablet(s) PO UD No Start Date 01/12/2017 Inactive zpack as directed Protonix 40 mg table t,delayed release RxNorm: 244888 1 Tablet(s) PO daily No Start Date [...] 21.9 pg 05/19/2017 Cbc With Differential Ord2 [place]% 8.1 % 05/19/2017 Cbc With Differential Ord2 [...] 1.98 K/ul 05/19/2017 Cbc With Differential Ord2 [place] ABS# 0.5 K/ul 05/19/2017 Cbc With Differential Ord2 Eos ABS# 0.2 K/ul 05/19/2017 Cbc With Differential Ord2 Baso ABS# 0.0 K/ul 05/19/2017 Comp Metabolic Bfk334 NA 142 mEq/L 05/19/2017 Comp Metabolic Uvp826 K 4.2 mEq/L 05/19/2017 Comp Metabolic Nop901 CL 105 mEq/L 05/19/2017 Comp Metabolic Huh823 CO2 29.0 mEq/L 05/19/2017 Comp Metabolic Xfp864 AN ION GAP 12 05/19/2017 Comp Metabolic Fnc753 GL UCOSE 95 mg/dL 05/19/2017 Comp Metabolic Yvn329 Cr eat 0.7 mg/dL 05/19/2017 Comp Metabolic Lrr066 eG FR 90 ml/min/1.73m2 05/19 Comp Metabolic Fek440 BUN 14 mg/dL 05/19/2017 Comp Metabolic Asy304 B/ C Ratio 20.3 Ratio 05/19/2017 Comp Metabolic Lvv170 CA LCIUM 9.1 mg/dL 05/19/2017 Comp Metabolic Hrl412 AL K PHOS 70 U/L 05/19/2017 Comp Metabolic Mol081 T(SGOT) 17 U/L 05/19/2017 Comp Metabolic Qwg786 AL T(SGPT) 14 U/L 05/19/2017 Comp Metabolic Rzy826 BI LI T 0.9 mg/dL 05/19/2017 Comp Metabolic Ipc459 AL BUMIN 4.2 g/dL 05/19/2017 Comp Metabolic Qec209 TP RO 6.4 g/dL 05/19/2017 Comp Metabolic Zlv065 GL OB 2.2 g/dL 05/19/2017 Comp Metabolic Zmd389 A/ G Ratio 1.9 Ratio 05/19/2017 Comp Metabolic Utx781 Os mo 283 mOsmo 05/19/2017 Tsh Ord6 TSH (3rd IS) 1.28 uIU/mL 05/19/2017 Lipid Ord30 CHOL 213 mg/dL 05/19/2017 Lipid Ord30 HDL 79.0 mg/dl 05/19/2017 Lipid Ord30 TRIG 73 mg/dL 05/19/2017 Lipid Ord30 LDL 119 mg/dL 05/19/2017 Lipid Ord30 C/HDL 2.7 Ratio 05/19/2017 Influenza A+B Cxh231 Inf jeff A+B Negative 01/12/2017 Tsh Ord6 hTSH II 1.17 uIU/mL 10/29/2014 Comp Metabolic Iwz499 NA 138 mEq/L 10/29/2014 Comp Metabolic Bur275 K 4.3 mEq/L 10/29/2014 Comp Metabolic Zoc218 CL 102 mEq/L 10/29/2014 Comp Metabolic Jtm706 CO2 30.0 mEq/L 10/29/2014 Comp Metabolic Pml619 AN ION GAP 10 10/29/2014 Comp Metabolic Acg422 GL UCOSE 76 mg/dL 10/29/2014 Comp Metabolic Jee253 Cr eat 0.8 mg/dL 10/29/2014 Comp Metabolic Dhq142 eG FR 81 ml/min/1.73m2 10/29 Comp Metabolic Tgd968 BUN 9 mg/dL 10/29/2014 Comp Metabolic Xcj978 B/ C Ratio 11.8 Ratio 10/29/2014 Comp Metabolic Rkf509 CA LCIUM 9.1 mg/dL 10/29/2014 Comp Metabolic Nnd708 AL K PHOS 75 U/L 10/29/2014 Comp Metabolic Egd709 T(SGOT) 14 U/L 10/29/2014 Comp Metabolic Yzw911 AL T(SGPT) 12 U/L 10/29/2014 Comp Metabolic Vjh499 BI LI T 0.8 mg/dL 10/29/2014 Comp Metabolic Yiw600 AL BUMIN 4.2 g/dL 10/29/2014 Comp Metabolic Ewz068 TP RO 6.6 g/dL 10/29/2014 Comp Metabolic Shq183 GL OB 2.4 g/dL 10/29/2014 Comp Metabolic Gaj968 A/ G Ratio 1.8 Ratio 10/29/2014 Comp Metabolic Qhm276 Os mo 273 mOsmo 10/29/2014 Lipid Ord30 [...] clear 11/30/2017 None Full Exam - General 1995 Eyes conjunctiva/eyelids Overall: cornea clear 11/30/2017 None [...] distress 05/17/2017 None Full Exam - General 1995 Constitutional general appearance Overall: well nourished 05/17/2017 [...] 1: 146/70 Code: 8480-6 BMI: 32.4 Code: 97431-9 Heart Rate 1: 77 bpm Height: 5'2" SpO2: 97% Weight: 177 lbs 05/17/2017 Blood Pressure 1: 128/60 Code: 8480-6 BMI: 34.2 Code: 17524-2 Heart Rate 1: 91 bpm Height: 5'2" SpO2: 97% Waist Measure (cm): 84 cm Weight: 187 lbs 05/12/2016 Blood Pressure 1: 144/62 Code: 8480-6 BMI: 34.2 Code: 69833-1 Heart Rate 1: 83 bpm Height: 5'2" SpO2: 98% Waist Measure (cm): 97 cm Weight: 187 lbs 02/17/2016 Blood Pressure 1: 158/76 Code: 8480-6 BMI: 34.4 Code: 26734-5 Heart Rate 1: 82 bpm Height: 5'2" SpO2: 97% Weight: 188 lbs 04/14/2015 Blood Pressure 1: 132/60 Code: 8480-6 BMI: 32.0 Code: 52633-5 Heart Rate 1: 79 bpm Height: 5'2" SpO2: 97% Waist Measure (cm): 102 cm Weight: 175 lbs 12/23/2014 Blood Pressure 1: 128/72 Code: 8480-6 BMI: 31.1 Code: 25521-8 Heart Rate 1: 75 bpm Height: 5'2" SpO2: 98% Weight: 170 lbs 10/28/2014 Blood Pressure 1: 122/62 Code: 8480-6 BMI: 30.4 Code: 89321-4 Heart Rate 1: 83 bpm Height: 5'2" [...] 05/17/2017 None Annual Medicare Wellness Exam Depres tdaeo or Hopelessness some of the time 05/17/2017 [...] Loca tion Codes Date EST. PATIENT, LEVEL III Diagnosis: Gastro-esophageal reflux disease without esophagitis[ICD10: K21.9] Diagnosis: Generalized anxiety disorder[ICD10: F41.1] Diagnosis: Major depressive disorder, single episode, moderate[ICD10: F32.1] Diagnosis: Thalassemia minor[ICD10: D56.3] Cayla Najera MD, [facility] CPT-4: 79910 11/30/2017 76984 EST. PATIENT, LEVEL III Diagnosis: Pain in right knee[ICD10: M25.561] Cayla Najera MD, [facility] CPT-4: 54304 02/17/2016 13881 EST. PATIENT, LEVEL III Diagnosis: Benign paroxysmal vertigo, unspecified ear[ICD10: H81.10] Anita Najera MD, [facility] CPT-4: 68331 12/23/2014 ([id number]) PREV VISIT N EW AGE 40-64 Diagnosis: Routine medical exam[ICD9: V70.0] Anita Najera MD, [facility] CPT-4: 01515 10/28/2014 Plan of Care Planned Activity Notes [...] this time. 11/30/2017 Appointment: Cayla Villegas WPtel: [address] [place], [place] [id number] (15 min) Moderate 11/30/2017 Patient Education: Patient Medication Summary Completed 11/30/2017 Patient Education: Depression Completed 11/30/2017 Visit Plan: Medicare Exam - today isaura pete discussed the patients past history, immunizations, preventative [...] App[facility]ment: [facility]leg[facility] [phone] [id number] [facility] - Annual Wellness Visit 05/17/2017 Patient [...] at again. 05/12/2016 Appointment: Cayla Villegas WPtel: [facility] [facility] - Annual Wellness Visit 05/12/2016 Patient Education: Patient Medication Summary Completed 05/12/2016 Referral: Devin Schroeder Referral Initiated 02/26/2016 Care Plan: Referral Order SNOMED-CT : [id number] Pending 02/20/2016 Visit Plan: Right knee pain [...] to Ortho 02/17/2016 Appointment: Camila Martines WPtel[phone] (15 min) Moderate 02/17/2016 Patient Education: [...] current medications. 10/28/2014 Appointment: [phone] [facility] [place] New [facility] 10/28/2014 Patient Education: Patient Medication [...] or refer to Ortho Do exercises for diz ziness, notify clinic [...]
--- OUTSIDE RECORDS SUMMARY | 2019-10-05 19:26 | XMS REPORT | CCD ---
Author Author Vaishali Najera Organization Anita Najera MD, [facility] Address [address] [place] [address] Phone Care Team Providers Care Slack Cooper Name Role Phone PP Unavailable CCM Unavailable Summary Purpose Interface Exchange Insurance Providers Payer name Policy type / Coverage type Covered republican ID Effective Begin Date Effective End Date WPS Medicare Part B Medicare Part B [id number] Unknown Cigna Medicare Part B 80 [id number] Unknown Family history Father Diagnosis Age At Onset Colon cancer Unknown Mother Diagnosis Age At Onset Cancer Unknown Colon cancer Unknown Brother Diagnosis Age At Onset lung cancer Unknown Depression Unknown Social History Social History Element Codes Description Effective Dates Marital status Unknown M arried 10/28/2014 Number of children Unknown 2 10/28/2014 Employment Unknown Retir ed previously worked at the [employer] in the [employer] - sometimes substitues, 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 10/28/[address]: 456326077 Never smoker 10/28/[address]: 952183 Currently drinks alcohol 10/28/2014 Frequency of drinks SNOMED CT: 674616194 14 drinks per week - drinks about [...] Fill Instructions Prozac 20 mg capsule RxNorm: 990063 TAKE 1 CAPSULE BY MOUTH ONCE DAILY 07/10/2018 No Stop Date Active Prozac 20 mg capsule RxNorm: 819214 TAKE 1 CAPSULE BY MOUTH ONCE DAILY 12/29/2017 07/09/2018 In active Prozac 20 mg capsule RxNorm: 655010 TAKE 1 CAPSULE BY MOUTH ONCE DAILY 11/28/2017 12/28/2017 In active Prozac 20 mg capsule RxNorm: 069496 TAKE ONE CAPSULE BY MOUTH ONCE DAILY 08/22/2017 11/27/2017 In active omeprazole 20 mg cap bernadette,delayed release RxNorm: 084788 1 Capsule(s) PO daily 07/07/2017 01/02/2018 In active omeprazole 20 mg cap bernadette,delayed release RxNorm: 630511 1 Capsule(s) PO daily 05/17/2017 06/15/2017 In active Prozac 20 mg capsule RxNorm: 265725 TAKE ONE CAPSULE BY MOUTH ONCE DAILY 02/07/2017 08/21/2017 In active Zithromax Z-Feliberto 250 mg tablet RxNorm: 149691 1 Tablet(s) PO UD 01/13/2017 07/06/2017 Inactive zpack as directed Prozac 20 mg capsule RxNorm: 339284 TAKE ONE CAPSULE BY MOUTH ONCE DAILY 01/03/2017 02/06/2017 In active omeprazole 40 mg cap bernadette,delayed release RxNorm: 350590 TAKE ONE CAPSULE BY M OUTH EVERY OTHER DAY 01/03/2017 07/06/2017 Inactive Prozac 20 mg capsule RxNorm: 596330 TAKE ONE CAPSULE BY MOUTH ONCE DAILY 10/04/2016 01/01/2017 In active omeprazole 40 mg cap bernadette,delayed release RxNorm: 608658 TAKE ONE CAPSULE BY M OUTH EVERY OTHER DAY 05/24/2016 11/19/2016 Inactive Prozac 20 mg capsule RxNorm: 899052 TAKE ONE CAPSULE BY MOUTH ONCE DAILY 05/24/2016 09/20/2016 In active omeprazole 40 mg cap bernadette,delayed release RxNorm: 587932 TAKE ONE CAPSULE BY M OUTH EVERY OTHER DAY 03/22/2016 05/20/2016 Inactive Prozac 20 mg capsule RxNorm: 756711 Capsule(s) TAKE ONE CAPSULE BY MOUTH ONC E DAILY 11/18/2015 05/15/2016 Inactive Prozac 20 mg capsule RxNorm: 574156 Capsule(s) TAKE ONE CAPSULE BY MOUTH ONC E DAILY 09/16/2015 11/14/2015 Inactive omeprazole 40 mg cap bernadette,delayed release RxNorm: 798387 Capsule(s) 1 Capsule( s) PO every other day 08/29/2015 02/24/2016 Inactive Prozac 20 mg capsule RxNorm: 431423 Capsule(s) TAKE ONE CAPSULE BY MOUTH ONC E DAILY 07/22/2015 09/15/2015 Inactive Prozac 20 mg capsule RxNorm: 727632 Capsule(s) TAKE ONE CAPSULE BY MOUTH ONC E DAILY 05/19/2015 07/17/2015 Inactive Prozac 20 mg capsule RxNorm: 079747 TAKE ONE CAPSULE BY MOUTH ONCE DAILY 03/14/2015 05/12/2015 In active omeprazole 40 mg cap bernadette,delayed release RxNorm: 321688 1 Capsule(s) PO every other day 02/06/2015 08/04/2015 Inactive omeprazole 40 mg cap bernadette,delayed release RxNorm: 887006 1 Capsule(s) PO every other day 01/06/2015 02/04/2015 Inactive Prozac 20 mg capsule RxNorm: 822804 1 Capsule(s) PO daily 11/04/2014 03/03/2015 Inactive Prozac 40 mg capsule RxNorm: 428545 1 Capsule(s) PO daily 10/28/2014 11/03/2014 Inactive omeprazole 40 mg cap bernadette,delayed release RxNorm: 208040 1 Capsule(s) PO every other day 10/28/2014 11/26/2014 Inactive Prozac oral RxNorm: 762329 oral No Start Date 10/27/2014 Inactive Zithromax Z-Feliberto 250 mg tablet RxNorm: 311384 1 Tablet(s) PO UD No Start Date 01/12/2017 Inactive zpack as directed Protonix 40 mg table t,delayed release RxNorm: 547593 1 Tablet(s) PO daily No Start Date [...] Exam 04/14/2015 vertigo 12/23/2014 depression 10/28/2014 delano castro Results Observation Observation Code Item Item Code [...] 21.9 pg 05/19/2017 Cbc With Differential Ord2 Evans% 8.1 % 05/19/2017 Cbc With Differential Ord2 [...] 1.98 K/ul 05/19/2017 Cbc With Differential Ord2 Evans ABS# 0.5 K/ul 05/19/2017 Cbc With Differential Ord2 Eos ABS# 0.2 K/ul 05/19/2017 Cbc With Differential Ord2 Baso ABS# 0.0 K/ul 05/19/2017 Comp Metabolic Fzg663 NA 142 mEq/L 05/19/2017 Comp Metabolic Jup417 K 4.2 mEq/L 05/19/2017 Comp Metabolic Nhi939 CL 105 mEq/L 05/19/2017 Comp Metabolic Lyf327 CO2 29.0 mEq/L 05/19/2017 Comp Metabolic Ghf262 AN ION GAP 12 05/19/2017 Comp Metabolic Bal604 GL UCOSE 95 mg/dL 05/19/2017 Comp Metabolic Tgm413 Cr eat 0.7 mg/dL 05/19/2017 Comp Metabolic Jmg183 eG FR 90 ml/min/1.73m2 05/19 Comp Metabolic Kwz176 BUN 14 mg/dL 05/19/2017 Comp Metabolic Ndt963 B/ C Ratio 20.3 Ratio 05/19/2017 Comp Metabolic Onb273 CA LCIUM 9.1 mg/dL 05/19/2017 Comp Metabolic Vdx206 AL K PHOS 70 U/L 05/19/2017 Comp Metabolic Hjr326 T(SGOT) 17 U/L 05/19/2017 Comp Metabolic Fpr807 AL T(SGPT) 14 U/L 05/19/2017 Comp Metabolic Xov547 BI LI T 0.9 mg/dL 05/19/2017 Comp Metabolic Lvt409 AL BUMIN 4.2 g/dL 05/19/2017 Comp Metabolic Agx510 TP RO 6.4 g/dL 05/19/2017 Comp Metabolic Xxb258 GL OB 2.2 g/dL 05/19/2017 Comp Metabolic Tsw035 A/ G Ratio 1.9 Ratio 05/19/2017 Comp Metabolic Fig080 Os mo 283 mOsmo 05/19/2017 Tsh Ord6 TSH (3rd IS) 1.28 uIU/mL 05/19/2017 Lipid Ord30 CHOL 213 mg/dL 05/19/2017 Lipid Ord30 HDL 79.0 mg/dl 05/19/2017 Lipid Ord30 TRIG 73 mg/dL 05/19/2017 Lipid Ord30 LDL 119 mg/dL 05/19/2017 Lipid Ord30 C/HDL 2.7 Ratio 05/19/2017 Influenza A+B Zzx348 Inf jeff A+B Negative 01/12/2017 Tsh Ord6 hTSH II 1.17 uIU/mL 10/29/2014 Comp Metabolic Qwy234 NA 138 mEq/L 10/29/2014 Comp Metabolic Tmn969 K 4.3 mEq/L 10/29/2014 Comp Metabolic Bmk693 CL 102 mEq/L 10/29/2014 Comp Metabolic Hlw116 CO2 30.0 mEq/L 10/29/2014 Comp Metabolic Job939 AN ION GAP 10 10/29/2014 Comp Metabolic Lkd835 GL UCOSE 76 mg/dL 10/29/2014 Comp Metabolic Zuq995 Cr eat 0.8 mg/dL 10/29/2014 Comp Metabolic Cpc626 eG FR 81 ml/min/1.73m2 10/29 Comp Metabolic Kmu594 BUN 9 mg/dL 10/29/2014 Comp Metabolic Vgr051 B/ C Ratio 11.8 Ratio 10/29/2014 Comp Metabolic Sqm907 CA LCIUM 9.1 mg/dL 10/29/2014 Comp Metabolic Vhg071 AL K PHOS 75 U/L 10/29/2014 Comp Metabolic Pqq352 T(SGOT) 14 U/L 10/29/2014 Comp Metabolic Vyo396 AL T(SGPT) 12 U/L 10/29/2014 Comp Metabolic Jqe409 BI LI T 0.8 mg/dL 10/29/2014 Comp Metabolic Wnq170 AL BUMIN 4.2 g/dL 10/29/2014 Comp Metabolic Qku569 TP RO 6.6 g/dL 10/29/2014 Comp Metabolic Wxd427 GL OB 2.4 g/dL 10/29/2014 Comp Metabolic Htq308 A/ G Ratio 1.8 Ratio 10/29/2014 Comp Metabolic Qme592 Os mo 273 mOsmo 10/29/2014 Lipid Ord30 [...] nourished 11/30/2017 None Full Exam - General 1995 Eyes conjunctiva/eyelids Overall: conjunctiva clear 11/30/2017 None [...] 11/30/2017 None Full Exam - General 1995 Ears/Nose/Throat otoscopic exam Overall: external auditory canals [...] 1: 146/70 Code: 8480-6 BMI: 32.4 Code: 76518-2 Heart Rate 1: 77 bpm Height: 5'2" SpO2: 97% Weight: 177 lbs 05/17/2017 Blood Pressure 1: 128/60 Code: 8480-6 BMI: 34.2 Code: 77858-4 Heart Rate 1: 91 bpm Height: 5'2" SpO2: 97% Waist Measure (cm): 84 cm Weight: 187 lbs 05/12/2016 Blood Pressure 1: 144/62 Code: 8480-6 BMI: 34.2 Code: 39235-9 Heart Rate 1: 83 bpm Height: 5'2" SpO2: 98% Waist Measure (cm): 97 cm Weight: 187 lbs 02/17/2016 Blood Pressure 1: 158/76 Code: 8480-6 BMI: 34.4 Code: 14689-5 Heart Rate 1: 82 bpm Height: 5'2" SpO2: 97% Weight: 188 lbs 04/14/2015 Blood Pressure 1: 132/60 Code: 8480-6 BMI: 32.0 Code: 24441-6 Heart Rate 1: 79 bpm Height: 5'2" SpO2: 97% Waist Measure (cm): 102 cm Weight: 175 lbs 12/23/2014 Blood Pressure 1: 128/72 Code: 8480-6 BMI: 31.1 Code: 00193-4 Heart Rate 1: 75 bpm Height: 5'2" SpO2: 98% Weight: 170 lbs 10/28/2014 Blood Pressure 1: 122/62 Code: 8480-6 BMI: 30.4 Code: 75554-5 Heart Rate 1: 83 bpm Height: 5'2" [...] Encounters Encounter Performer Loca tion Codes Date 50470 EST. PATIENT, LEVEL III Diagnosis: Gastro-esophageal reflux disease without esophagitis[ICD10: K21.9] Diagnosis: Generalized anxiety disorder[ICD10: F41.1] Diagnosis: Major depressive disorder, single episode, moderate[ICD10: F32.1] Diagnosis: Thalassemia minor[ICD10: D56.3] Cayla Najera MD, [facility] CPT-4: 15278 11/30/2017 21199 EST. PATIENT, LEVEL III Diagnosis: Pain in right knee[ICD10: M25.561] Cayla Najera MD, [facility] CPT-4: 18608 02/17/2016 86358 EST. PATIENT, LEVEL III Diagnosis: Benign paroxysmal vertigo, unspecified ear[ICD10: H81.10] Anita Najera MD [facility] CPT-4: 43643 12/23/2014 ([id number]) PREV VISIT N EW AGE 40-64 Diagnosis: Routine medical exam[ICD9: V70.0] Anita Najera MD, [facility] CPT-4: 49191 10/28/2014 Plan of Care Planned Activity Notes [...] this time. 11/30/2017 Appointment: Cayla Villegas WPtel: [address] [place], [place] [id number] (15 min) Moderate 11/30/2017 Patient Education: Patient [...] surrogate. 05/17/2017 Appointment: Cay[facility] Villegas [facility]Ptel[facility] [phone] [facility] [facility] - Annual Wellness Visit 05/17/2017 Patient [...] again. 05/12/2016 Appointment: Cayla Villegas WPtel[facility] [phone] [facility] [place] [facility] - Annual Wellness Visit 05/12/2016 Patient Education: Patient Medication Summary Completed 05/12/2016 Referral: Devin Schroeder Referral Initiated 02/26/2016 Care Plan: Referral Order SNOMED-CT : [id number] Pending 02/20/2016 Visit Plan: Right knee pain [...] Ortho 02/17/2016 Appointment: Camila Martines WPtel[facility] [phone] [facility] [place] (15 min) Moderate 02/17/2016 Patient Education: Patient Medication Summary Completed 02/17/2016 Visit Plan: Welcome to Medicare Ex m - today we discussed the patients [...] current medications. 10/28/2014 Appointment: Anita Najera WPtel: [address] [place], [place] [id number] New Patient 10/28/2014 Patient Education: Patient Medication [...]
--- OUTSIDE RECORDS SUMMARY | 2019-10-05 19:27 | XMS REPORT | CCD ---
Author Author Vaishali Najera Organization Anita Najera MD, [facility] Address [address] [place] [address] Phone Care Team Providers Care Eligibility Manager Name Role Phone PP Unavailable CCM Unavailable Summary Purpose Interface Exchange Insurance Providers Payer name Policy type / Coverage type Covered constitution party ID Effective Begin Date Effective End Date WPS Medicare Part B Medicare Part B [id number] Unknown Cigna Medicare Part B 80 [id number] Unknown Family history Father Diagnosis Age At Onset Colon cancer Unknown Mother Diagnosis Age At Onset Cancer Unknown Colon cancer Unknown Brother Diagnosis Age At Onset lung cancer Unknown Depression Unknown Social History Social History Element Codes Description Effective Dates Marital status Unknown M arried 10/28/2014 Number of children Unknown 2 10/28/2014 Employment Unknown Retir ed previously worked at the [employer] 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 10/28/[address]: 038309254 Never smoker 10/28/[address]: 065153 Currently drinks alcohol 10/28/2014 Frequency of drinks SNOMED CT: 223005375 14 drinks per week - drinks about [...] Fill Instructions Prozac 20 mg capsule RxNorm: 237366 TAKE 1 CAPSULE BY MOUTH ONCE DAILY 12/29/2017 No Stop Date Active Prozac 20 mg capsule RxNorm: 080014 TAKE 1 CAPSULE BY MOUTH ONCE DAILY 11/28/2017 12/28/2017 In active Prozac 20 mg capsule RxNorm: 070355 TAKE ONE CAPSULE BY MOUTH ONCE DAILY 08/22/2017 11/27/2017 In active omeprazole 20 mg cap bernadette,delayed release RxNorm: 012093 1 Capsule(s) PO daily 07/07/2017 01/02/2018 Ac tive omeprazole 20 mg cap bernadette,delayed release RxNorm: 960086 1 Capsule(s) PO daily 05/17/2017 06/15/2017 In active Prozac 20 mg capsule RxNorm: 413692 TAKE ONE CAPSULE BY MOUTH ONCE DAILY 02/07/2017 08/21/2017 In active Zithromax Z-Feliberto 250 mg tablet RxNorm: 745034 1 Tablet(s) PO UD 01/13/2017 07/06/2017 Inactive zpack as directed Prozac 20 mg capsule RxNorm: 040164 TAKE ONE CAPSULE BY MOUTH ONCE DAILY 01/03/2017 02/06/2017 In active omeprazole 40 mg cap bernadette,delayed release RxNorm: 684878 TAKE ONE CAPSULE BY M OUTH EVERY OTHER DAY 01/03/2017 07/06/2017 Inactive Prozac 20 mg capsule RxNorm: 368172 TAKE ONE CAPSULE BY MOUTH ONCE DAILY 10/04/2016 01/01/2017 In active omeprazole 40 mg cap bernadette,delayed release RxNorm: 920057 TAKE ONE CAPSULE BY M OUTH EVERY OTHER DAY 05/24/2016 11/19/2016 Inactive Prozac 20 mg capsule RxNorm: 236281 TAKE ONE CAPSULE BY MOUTH ONCE DAILY 05/24/2016 09/20/2016 In active omeprazole 40 mg cap bernadette,delayed release RxNorm: 442060 TAKE ONE CAPSULE BY M OUTH EVERY OTHER DAY 03/22/2016 05/20/2016 Inactive Prozac 20 mg capsule RxNorm: 012563 Capsule(s) TAKE ONE CAPSULE BY MOUTH ONC E DAILY 11/18/2015 05/15/2016 Inactive Prozac 20 mg capsule RxNorm: 055261 Capsule(s) TAKE ONE CAPSULE BY MOUTH ONC E DAILY 09/16/2015 11/14/2015 Inactive omeprazole 40 mg cap bernadette,delayed release RxNorm: 423890 Capsule(s) 1 Capsule( s) PO every other day 08/29/2015 02/24/2016 Inactive Prozac 20 mg capsule RxNorm: 108998 Capsule(s) TAKE ONE CAPSULE BY MOUTH ONC E DAILY 07/22/2015 09/15/2015 Inactive Prozac 20 mg capsule RxNorm: 513635 Capsule(s) TAKE ONE CAPSULE BY MOUTH ONC E DAILY 05/19/2015 07/17/2015 Inactive Prozac 20 mg capsule RxNorm: 505362 TAKE ONE CAPSULE BY MOUTH ONCE DAILY 03/14/2015 05/12/2015 In active omeprazole 40 mg cap bernadette,delayed release RxNorm: 596973 1 Capsule(s) PO every other day 02/06/2015 08/04/2015 Inactive omeprazole 40 mg cap bernadette,delayed release RxNorm: 472793 1 Capsule(s) PO every other day 01/06/2015 02/04/2015 Inactive Prozac 20 mg capsule RxNorm: 633173 1 Capsule(s) PO daily 11/04/2014 03/03/2015 Inactive Prozac 40 mg capsule RxNorm: 987998 1 Capsule(s) PO daily 10/28/2014 11/03/2014 Inactive omeprazole 40 mg cap bernadette,delayed release RxNorm: 090275 1 Capsule(s) PO every other day 10/28/2014 11/26/2014 Inactive Prozac oral RxNorm: 942866 oral No Start Date 10/27/2014 Inactive Zithromax Z-Feliberto 250 mg tablet RxNorm: 404608 1 Tablet(s) PO UD No Start Date 01/12/2017 Inactive zpack as directed Protonix 40 mg table t,delayed release RxNorm: 038558 1 Tablet(s) PO daily No Start Date [...] 10.3 g/dl 05/19/2017 Cbc With Differential Ord2 Neut% 53.4 % 05/19/2017 Cbc With Differential Ord2 HCT 32.1 % 05/19/2017 Cbc With Differential Ord2 MCV 68.3 fl 05/19/2017 Cbc With Differential Ord2 Lymph% 34.9 % 05/19/2017 Cbc With Differential Ord2 MCH 21.9 pg 05/19/2017 Cbc With Differential Ord2 Tift% 8.1 % 05/19/2017 Cbc With Differential Ord2 [...] 1.98 K/ul 05/19/2017 Cbc With Differential Ord2 Tift ABS# 0.5 K/ul 05/19/2017 Cbc With Differential Ord2 Eos ABS# 0.2 K/ul 05/19/2017 Cbc With Differential Ord2 Baso ABS# 0.0 K/ul 05/19/2017 Comp Metabolic Vau455 NA 142 mEq/L 05/19/2017 Comp Metabolic Dmc503 K 4.2 mEq/L 05/19/2017 Comp Metabolic Yhh389 CL 105 mEq/L 05/19/2017 Comp Metabolic Hoi043 CO2 29.0 mEq/L 05/19/2017 Comp Metabolic Wyk983 AN ION GAP 12 05/19/2017 Comp Metabolic Tuc713 GL UCOSE 95 mg/dL 05/19/2017 Comp Metabolic Saw949 Cr eat 0.7 mg/dL 05/19/2017 Comp Metabolic Chk283 eG FR 90 ml/min/1.73m2 05/19 Comp Metabolic Ksv813 BUN 14 mg/dL 05/19/2017 Comp Metabolic Trc504 B/ C Ratio 20.3 Ratio 05/19/2017 Comp Metabolic Lsr535 CA LCIUM 9.1 mg/dL 05/19/2017 Comp Metabolic Foc999 AL K PHOS 70 U/L 05/19/2017 Comp Metabolic Jpa399 T(SGOT) 17 U/L 05/19/2017 Comp Metabolic Wtf388 AL T(SGPT) 14 U/L 05/19/2017 Comp Metabolic Gpj302 BI LI T 0.9 mg/dL 05/19/2017 Comp Metabolic Ybl898 AL BUMIN 4.2 g/dL 05/19/2017 Comp Metabolic Hlc978 TP RO 6.4 g/dL 05/19/2017 Comp Metabolic Heo796 GL OB 2.2 g/dL 05/19/2017 Comp Metabolic Aib345 A/ G Ratio 1.9 Ratio 05/19/2017 Comp Metabolic Zgb159 Os mo 283 mOsmo 05/19/2017 Tsh Ord6 TSH (3rd IS) 1.28 uIU/mL 05/19/2017 Lipid Ord30 CHOL 213 mg/dL 05/19/2017 Lipid Ord30 HDL 79.0 mg/dl 05/19/2017 Lipid Ord30 TRIG 73 mg/dL 05/19/2017 Lipid Ord30 LDL 119 mg/dL 05/19/2017 Lipid Ord30 C/HDL 2.7 Ratio 05/19/2017 Influenza A+B Hbc263 Inf jeff A+B Negative 01/12/2017 Tsh Ord6 hTSH II 1.17 uIU/mL 10/29/2014 Comp Metabolic Mqz458 NA 138 mEq/L 10/29/2014 Comp Metabolic Lau531 K 4.3 mEq/L 10/29/2014 Comp Metabolic Sgb509 CL 102 mEq/L 10/29/2014 Comp Metabolic Rux104 CO2 30.0 mEq/L 10/29/2014 Comp Metabolic Hat760 AN ION GAP 10 10/29/2014 Comp Metabolic Sya735 GL UCOSE 76 mg/dL 10/29/2014 Comp Metabolic Kbe310 Cr eat 0.8 mg/dL 10/29/2014 Comp Metabolic Yjz989 eG FR 81 ml/min/1.73m2 10/29 Comp Metabolic Cyy043 BUN 9 mg/dL 10/29/2014 Comp Metabolic Csl595 B/ C Ratio 11.8 Ratio 10/29/2014 Comp Metabolic Dbl494 CA LCIUM 9.1 mg/dL 10/29/2014 Comp Metabolic Kqf511 AL K PHOS 75 U/L 10/29/2014 Comp Metabolic Zik424 T(SGOT) 14 U/L 10/29/2014 Comp Metabolic Lxg176 AL T(SGPT) 12 U/L 10/29/2014 Comp Metabolic Pwz176 BI LI T 0.8 mg/dL 10/29/2014 Comp Metabolic Cqc508 AL BUMIN 4.2 g/dL 10/29/2014 Comp Metabolic Soi953 TP RO 6.6 g/dL 10/29/2014 Comp Metabolic Hik689 GL OB 2.4 g/dL 10/29/2014 Comp Metabolic Sjg608 A/ G Ratio 1.8 Ratio 10/29/2014 Comp Metabolic Kik485 Os mo 273 mOsmo 10/29/2014 Lipid Ord30 [...] accomodation 11/30/2017 None Full Exam - General 1995 Ears/Nose/Throat otoscopic exam Overall: tympanic membranes clear [...] 1: 146/70 Code: 8480-6 BMI: 32.4 Code: 42987-1 Heart Rate 1: 77 bpm Height: 5'2" SpO2: 97% Weight: 177 lbs 05/17/2017 Blood Pressure 1: 128/60 Code: 8480-6 BMI: 34.2 Code: 17502-0 Heart Rate 1: 91 bpm Height: 5'2" SpO2: 97% Waist Measure (cm): 84 cm Weight: 187 lbs 05/12/2016 Blood Pressure 1: 144/62 Code: 8480-6 BMI: 34.2 Code: 65079-4 Heart Rate 1: 83 bpm Height: 5'2" SpO2: 98% Waist Measure (cm): 97 cm Weight: 187 lbs 02/17/2016 Blood Pressure 1: 158/76 Code: 8480-6 BMI: 34.4 Code: 67718-5 Heart Rate 1: 82 bpm Height: 5'2" SpO2: 97% Weight: 188 lbs 04/14/2015 Blood Pressure 1: 132/60 Code: 8480-6 BMI: 32.0 Code: 95812-7 Heart Rate 1: 79 bpm Height: 5'2" SpO2: 97% Waist Measure (cm): 102 cm Weight: 175 lbs 12/23/2014 Blood Pressure 1: 128/72 Code: 8480-6 BMI: 31.1 Code: 91343-4 Heart Rate 1: 75 bpm Height: 5'2" SpO2: 98% Weight: 170 lbs 10/28/2014 Blood Pressure 1: 122/62 Code: 8480-6 BMI: 30.4 Code: 73550-7 Heart Rate 1: 83 bpm Height: 5'2" [...] Encounters Encounter Performer Loca tion Codes Date 59020 EST. PATIENT, LEVEL III Diagnosis: Gastro-esophageal reflux disease without esophagitis[ICD10: K21.9] Diagnosis: Generalized anxiety disorder[ICD10: F41.1] Diagnosis: Major depressive disorder, single episode, moderate[ICD10: F32.1] Diagnosis: Thalassemia minor[ICD10: D56.3] Cayla Najera MD, [facility] CPT-4: 99225 11/30/2017 99144 EST. PATIENT, LEVEL III Diagnosis: Pain in right knee[ICD10: M25.561] Cayla Najera MD, [facility] CPT-4: 98562 02/17/2016 71025 EST. PATIENT, LEVEL III Diagnosis: Benign paroxysmal vertigo, unspecified ear[ICD10: H81.10] Anita Najera MD, [facility] CPT-4: 39253 12/23/2014 ([id number]) PREV VISIT N EW AGE 40-64 Diagnosis: Routine medical exam[ICD9: V70.0] Anita Najera MD, [facility] CPT-4: 16534 10/28/2014 Plan of Care Planned Activity Notes [...] this time. 11/30/2017 Appointment: Cayla Villegas WPtel: [address] [place], [place] [id number] (15 min) Moderate 11/30/2017 Patient Education: Patient [...] surrogate. 05/17/2017 Appointment: [facility] Villeg[facility]el[facility] [phone] [facility] [facility] - Annual Wellness Visit 05/17/2017 Patient [...] again. 05/12/2016 Appointment: Cay[facility] Villegas [facility]el[facility] [phone] [facility] [facility] - Annual Wellness Visit 05/12/2016 Patient Education: Patient Medication Summary Completed 05/12/2016 Referral: Devin Schroeder Referral Initiated 02/26/2016 Care Plan: Referral Order SNOMED-CT : [id number] Pending 02/20/2016 Visit Plan: Right knee pain [...] Ortho 02/17/2016 Appointment: Camila Martines [facility]el[facility] [phone] [phone] (15 min) Moderate 02/17/2016 Patient Education: Patient [...] medications. 10/28/2014 Appointment: [phone] [facility] [facility] Patient 10/28/2014 Patient Education: Patient Medication [...]
--- OUTSIDE RECORDS SUMMARY | 2019-10-05 19:27 | XMS REPORT | Continuity of Care Document ---
Author Organization Unknown Address Unknown Phone Unavailable Allergies Active Description Code Type Severity Reaction Onset Reported/Identified Relationship to Patient Clinical Status Yes No Known Drug Allergies [id number] Drug Allergy Unknown N/A 10/05/2019 Medications There is no data. Problems There is no data. Procedures There is no data. Results Test Result Range Complete blood count (CBC) with automate d white blood cell (WBC) differential - 10/05/19 16:19 Blood leukocytes automated count (number/volume) 10.6 10*3/uL 4.3-11.0 Blood erythrocytes automated count (number/volume) 4.73 10*6/uL 4.35-5.85 Venous blood hemoglobin measurement (mass/volume) 10.4 g/dL 11.5-16.0 Blood hematocrit (volume fraction) 31 % 35-52 Automated erythrocyte mean corpuscular volume 66 [ foz_us] 80-99 Automated erythrocyte mean corpuscular h emoglobin (mass per erythrocyte) 22 pg 25-34 Automated erythrocyte mean corpuscular h emoglobin concentration measurement (mass/volume) 33 g/dL 32-36 Automated erythrocyte distribution width ratio 16. 5 % 10.0- 14.5 Automated blood platelet count (count/volume) 333 10*3/uL 130-400 Automated blood platelet mean volume measurement 9.9 [foz_us] 7.4-10.4 Automated blood neutrophils/100 leukocytes 72 % 42-75 Automated blood lymphocytes/100 leukocytes 20 % 12-44 Blood monocytes/100 leukocytes 7 % 0-12 Automated blood eosinophils/100 leukocytes 1 % 0-10 Automated blood basophils/100 leukocytes 0 % 0-10 Blood neutrophils automated count (number/volume) 7.6 10*3 1.8-7.8 Blood lymphocytes automated count (number/volume) 2.1 10*3 1.0-4.0 Blood monocytes automated count (number/volume) 0. 8 10*3 0.0-1.0 Automated eosinophil count 0.1 10*3/uL 0 .0-0.3 Automated blood basophil count (count/volume) 0.0 10*3/uL 0.0-0.1 Comprehensive metabolic panel - 10/05/19 16:19 Serum or plasma sodium measurement (moles/volume) 139 mmol/L 135-145 Serum or plasma potassium measurement (moles/volume) 3.4 mmol/L 3.6-5.0 Serum or plasma chloride measurement (moles/volume) 106 mmol/L 98-107 Carbon dioxide 21 mmol/L 21-32 Serum or plasma anion gap determination (moles/volume) 12 mmol/L 5-14 Serum or plasma urea nitrogen measurement (mass/volume ) 14 mg/dL 7-18 Serum or plasma creatinine measurement (mass/volume) 0.82 mg/dL 0.60-1.30 Serum or plasma urea nitrogen/creatinine mass ratio 17 NRG Serum or plasma creatinine measurement w ith calculation of estimated glomerular filtration rate > NRG Serum or plasma glucose measurement (mass/volume) 119 mg/dL 70-105 Serum or plasma calcium measurement (mass/volume) 8.7 mg/dL 8.5-10.1 Serum or plasma total bilirubin measurement (mass/volu me) 1.0 mg/dL 0.1-1.0 Serum or plasma alkaline phosphatase james surement (enzymatic activity/volume) 79 U/L 40-136 Serum or plasma aspartate aminotransfera se measurement (enzymatic activity/volume) 18 U/L 5-34 Serum or plasma alanine aminotransferase measurement (enzymatic activity/volume) 19 U/L 0-55 Serum or plasma protein measurement (mass/volume) 7.0 g/dL 6.4-8.2 Serum or plasma albumin measurement (mass/volume) 4.0 g/dL 3.2-4.5 CALCIUM CORRECTED 8.7 mg/dL 8.5-10.1 Lipase - 10/05/19 16:19 Lipase 12 U/L 8-78 Encounters ACCT No. Visit Date/Time Discharge Status Pt. Type Provider Facility Loc./Unit Complaint [id number] 12/01/2016 16:11:21 12/01/2016 23:59:5 9 CLS Outpatient [id number] 10/05/2019 15:46:00 020 18:30:00 DIS Emergency VALERIY PEREZ APRN Via [facility] ER STERNUM PAIN
== END 2019-10-05 18:30 | disposition home or self-care (01) ==
LOC: EDUNIT# 15:44 → ER 15:46
DX: K80.20 Calculus of gallbladder without cholecystitis without obstruction (principal)
CPT/HCPCS: 36415; 74177; 80053; 83690; 85025

== ENCOUNTER 2019-10-10 05:46 | Outpatient (CLI) | payer MEDICARE, OTHER ==
[~2019-10-10] VITALS: Ht 154.9 cm; Wt 85.0 kg
[~2019-10-10 05:46] MED LIST: FLUO20CA46 PO; HYDR-3870 PO; ONDA8TAB13 PO; PANT40TA3 PO
[2019-10-10] MEDS ORDERED: CETI10TA21 PO (09:20)
[2019-10-11] MEDS ORDERED: HYDR-4227 PO (07:56)
== END 2019-10-10 09:30 | disposition home or self-care (01) ==
LOC: PREOP 05:46
PROVIDERS: ATTEND Surgery
DX: Z01.818 Encounter for other preprocedural examination (principal)

== ENCOUNTER 2019-10-11 07:28 | Day surgery (SDC) | payer MEDICARE, OTHER ==
[~2019-10-11] VITALS: Ht 154 cm; Wt 85.0 kg
[2019-10-11] VITALS (10 sets, daily range): BP systolic 108–137; BP diastolic 51–64
[~2019-10-11 07:28] MED LIST changes: +CETI10TA21 PO
[2019-10-11] MEDS ORDERED: LIDOCAINE PF 2% 5 ML (XYLOCAINE) VIAL ONE (07:32)
[2019-10-11] MEDS ORDERED: proPOfol 200 MG/20 ML (DIPRIVAN) VIAL IV ONE (07:32)
[2019-10-11] MEDS ORDERED: MIDAZOLAM 2 MG/2 ML (VERSED) VIAL ONE (07:32)
[2019-10-11] MEDS ORDERED: NEOSTIGMINE 3 MG/3 ML VIAL ONE (07:32)
[2019-10-11] MEDS ORDERED: ROCURONIUM 10 MG/ML 5 ML SYRINGE IV ONE (07:32)
[2019-10-11] MEDS ORDERED: GLYCOPYRROLATE 0.2 MG/ML (ROBINUL) 2 ML VIAL ONE (07:32)
[2019-10-11] MEDS ORDERED: fentaNYL INJECTION 100 MCG/2 ML AMP ONE (07:32)
--- OUTSIDE RECORDS SUMMARY | 2019-10-11 07:34 | XMS REPORT | Continuity of Care Document ---
Author Organization Unknown Address Unknown Phone Unavailable Allergies Active Description Code Type Severity Reaction Onset Reported/Identified Relationship to Patient Clinical Status Yes No Known Drug Allergies [id number] Drug Allergy Unknown N/A 10/05/2019 Medications There is no data. Problems Date Dx Coded Attending Type Code Diagnosis Diagnosed By 10/05/2019 VALERIY PEREZ APRN Ot K80.20 CALCULUS OF GALLBLADDER W/O CHOLECYSTITI 10/05/2019 VALERIY PEREZ APRN Ot R10.84 GENERALIZED ABDOMINAL PAIN 10/08/2019 VALERIY PEREZ APRN Ot K80.20 CALCULUS OF GALLBLADDER W/O CHOLECYSTITI 10/08/2019 VALERIY PEREZ APRN Ot R10.84 GENERALIZED ABDOMINAL PAIN 10/08/2019 VALERIY PEREZ APRN Ot K80.20 CALCULUS OF GALLBLADDER W/O CHOLECYSTITI 10/08/2019 VALERIY PEREZ APRN Ot R10.84 GENERALIZED ABDOMINAL PAIN Procedures There is no data. Results Test [...] 12/01/2016 16:11:21 12/01/2016 23:59:5 9 CLS Outpatient [id number] 10/10/2019 05:46:00 09:30:00 DIS Outpatient DONNA BELL MD Via [facility] PREOP CHOLECYSTITIS [id number] 10/05/2019 15:46:00 020 18:30:00 DIS Emergency VALERIY PEREZ APRN Via [facility] ER STERNUM PAIN [id number] 10/11/2019 08:00:00 P EN Preadmit DONNA BELL MD Via [facility] SDC CHOLECYSTITIS
[2019-10-11] MEDS ORDERED: BUP/EPI 0.5% 1:200,000 (MARCAINE) 10ML VIAL IJ ONE (07:42)
--- NOTE | 2019-10-11 07:54 | Progress Note-Pre Operative ---
Pre-Operative Progress Note H&P Reviewed The H&P was reviewed, patient examined and no changes noted. Date Seen by Provider: Oct 11, 2019 Time Seen by Provider: 07:50 Date H&P Reviewed: Oct 11, 2019 Time H&P Reviewed: 07:45 Pre-Operative Diagnosis: Chronic acalculous cholecystitis MARIA LUZ FISCHER APRN Oct 11, 2019 07:54
[2019-10-11] MEDS ORDERED: HYDR-4227 PO (07:56)
--- NOTE | 2019-10-11 07:57 | Discharge Inst-Surgical ---
D/C Lap Instructions-KIDO Reconcile Patient Problems Problems Reviewed?: Yes New, Converted, or Re-Newed RX: RX on Chart Follow Up Appt in 2 weeks Activity as tolerated No driving for 24 hours No driving while on pain medications Incentive Spirometry use every 2 hours while awake Regular Diet Symptoms to Report: Fever over 101 degree F, Nausea/Vomiting Infection Signs and Symptoms to report: Increased redness, Foul odor of wound, Increased drainage Bathing instructions: May shower Operative Area Clean/Dry; Keep incision clean/dry If any problems/questions: Contact your physician or go to Emergency Room MARIA LUZ FISCHER APRN Oct 11, 2019 07:57
[2019-10-11] MEDS ORDERED: morphine INJ 10 MG/ML 1ML (SYR OR VIAL) IVP PRN (08:00)
[2019-10-11] MEDS ORDERED: HYDROcodone/APAP 5 MG/325 MG (LORTAB) TAB PO ONE (08:00)
[2019-10-11] MEDS ORDERED: CATHETER FLUSH 10 ML SYR IV PRN (08:00)
[2019-10-11] MEDS ORDERED: ACETAMINOPHEN 325 MG TABLET PO PRN (08:00)
[2019-10-11] MEDS ORDERED: ceFAZolin 2 GM IV Premixed 50 ML IV ONE (08:00)
[2019-10-11] MEDS ORDERED: ONDANSETRON 4 MG/2 ML (SDV) Z0FRAN IVP PRN ×2 (08:00→11:00)
[2019-10-11] MEDS: LACTATED RINGERS 1,000 ML IV PRN ×2 (08:11→10:07)
[2019-10-11] MEDS ORDERED: SEVOFLURANE (ULTANE) 15 ML INHAL SOLN ONE (10:15)
--- NOTE | 2019-10-11 10:43 | Progress Note-Post Operative ---
Post-Operative Progess Note Surgeon (s)/Beet Worker (s) Surgeon DONNA BELL MD Beet Worker: safia verma [employer] Pre-Operative Diagnosis Chronic acalculous cholecystitis Post-Operative Diagnosis same Procedure & Operative Findings Date of Procedure 10/11/19 Procedure Performed/Findings laparoscopic cholecystectomy Anesthesia Type get Estimated Blood Loss Estimated blood loss (mL): minimal Specimens/Packing Specimens Removed gallbladder DONNA BELL MD Oct 11, 2019 10:43
[2019-10-11] MEDS ORDERED: morphine INJ 10 MG/ML 1ML (SYR OR VIAL) IVP ONE ×2 (10:45→11:00)
[2019-10-11] MEDS ORDERED: HYDROcodone/APAP 7.5 MG/325 MG (LORTAB, LORCET PLUS) TABLET PO ONE (12:28)
--- NOTE | 2019-10-11 12:47 | NUR ---
1206 o2 down to 1l, o2 sat 94%. hands cold to touch 1208 o2 sat cont at 94 % on 1l/nc warm blanket to cover hands, cont pulse ox on 1215 02 sat 92, o2 turned off at this time 1228 o2 sat 89%, o2 back on at 1l
--- NOTE | 2019-10-11 12:55 | OPERATIVE REPORT ---
DATE OF SERVICE: 10/11/2019 ATTENDING PRIMARY CARE PHYSICIAN: Dr. Anita Najera. PREOPERATIVE DIAGNOSIS: Symptomatic chronic calculous cholecystitis. POSTOPERATIVE DIAGNOSIS: Symptomatic chronic calculous cholecystitis. PROCEDURE PERFORMED: Laparoscopic cholecystectomy. SURGEON: Donna Bell MD. DIRECTOR OF ANESTHESIA SERVICES: Jeffery Barrios APRN. ANESTHESIA: General endotracheal. ESTIMATED BLOOD LOSS: Minimal. FINDINGS: Hydrops of the gallbladder with gallbladder wall thickening and multiple gallstones. DISPOSITION: The patient tolerated the procedure well. INDICATIONS FOR PROCEDURE: The patient is a 68-year-old female, who has had intermittent episodes of pain in the right upper abdominal quadrant usually following meals. She states that this started approximately eight years ago and was initially mild; however, in the past few years, it has become much more frequent as well as more severe. A CT scan was performed for evaluation and multiple gallstones were identified as well as mild gallbladder wall thickening. DESCRIPTION OF PROCEDURE: The patient was brought to the operating room, laid supine on the table. After adequate IV pain and sedative medications and general endotracheal intubation, the abdomen was prepped and draped in a standard surgical fashion. A 0.5% Marcaine with epinephrine was then used to anesthetize the overlying skin to the left upper abdominal quadrant and a transverse skin incision made using a 15 blade. A 0 silk suture was applied to the medial aspect of the incision for retraction and a Veress needle inserted with a low opening pressure of 0 mmHg. The abdomen was then insufflated to 15 mmHg pressure. The Veress needle was removed and a 5 mm XL trocar placed followed by a 5 mm 45-degree angle laparoscope visualizing the peritoneal cavity. A four-quadrant abdominal exploration was performed. There was a distended gallbladder with gallbladder wall thickening. Under direct visualization, we then proceeded to place a supraumbilical 10 mm port after the skin and peritoneal lining were anesthetized using a 0.5% Marcaine with epinephrine and a transverse skin incision was made using a 15 blade. In a similar fashion, a right upper abdominal quadrant 5 mm port was placed. The gallbladder was then decompressed with a laparoscopic needle and suction with clear fluid consistent with hydrops of the gallbladder. The fundus of the gallbladder was then retracted anteriorly and superiorly and the patient was then placed in a reverse Trendelenburg position as well as plane right side up and left side down. The hepatoduodenal ligament was then opened using a blunt dissection as well as electrocautery. The entire critical view of safety was identified including the triangle of Calot as well as the cystic duct and artery as the only two structures going into the gallbladder as well as the cystic plate behind the proximal gallbladder. A timeout was then taken and the cystic duct and artery were then clipped proximally, distally and cut with EndoShears. The gallbladder was then dissected off the liver bed using cautery on hook instrument with visualization of good hemostasis as well as no leaking ducts of Luschka. The gallbladder was removed through the 10 mm port site using an EndoCatch bag. The 10 mm port site fascia and peritoneum were then closed under direct visualization using a Sav-Darlyn device and 0 Vicryl suture. The abdomen was then desufflated and remaining ports were removed. All skin incisions were closed using 4-0 Monocryl running subcuticular sutures. Wounds were then cleaned and covered with Dermabond. The patient tolerated the procedure well. We will start IV normal pain medication as well as a clear liquid diet. When she is tolerating clears, has good pain control with oral pain medications and ambulating well, we will discharge her home. She will be instructed to do no heavy lifting or exertion for the next two weeks. Job ID: [id number] DocumentID: [id number] Dictated Date: 10/11/2019 10:14:53 Lasting Room Supervisor Date: 10/11/2019 12:53:51 Dictated By: DONNA BELL MD
--- NOTE | 2019-10-11 12:57 | NUR ---
o2 sat 90% on 1l. o2 turned off. will monitor for cont o2 sat
--- NOTE | 2019-10-11 13:02 | Anesthesia-General Post-Op ---
General Patient Condition Mental Status/LOC: Same as Preop Cardiovascular: Satisfactory Nausea/Vomiting: Absent Respiratory: Satisfactory Pain: Controlled Complications: Absent Post Op Complications Complications None Follow Up Care/Instructions Patient Instructions None needed. Anesthesia/Patient Condition Patient Condition Patient is doing well, no complaints, stable vital signs, no apparent adverse anesthesia problems. No complications reported per nursing. MINNA GARCIA CRNA Oct 11, 2019 13:02
--- NOTE | 2019-10-11 13:06 | NUR ---
o2 93-95% on room air. pt sates ready to go home.
== END 2019-10-11 13:13 | disposition home or self-care (01) ==
LOC: SDC 07:28
PROVIDERS: ATTEND Surgery
DX: K80.12 Calculus of gallbladder with acute and chronic cholecystitis without obstruction (principal); D13.5 Benign neoplasm of extrahepatic bile ducts; F32.9 Major depressive disorder, single episode, unspecified; K21.9 Gastro-esophageal reflux disease without esophagitis; K57.90 Diverticulosis of intestine, part unspecified, without perforation or abscess without bleeding; D56.3 Thalassemia minor; Z79.899 Other long term (current) drug therapy; Z80.0 Family history of malignant neoplasm of digestive organs
CPT/HCPCS: 87081

== ENCOUNTER → 2020-04-01 | Outpatient (CLI) | payer MEDICARE, OTHER ==
[~2020-04-01] MED LIST changes: -CETI10TA21 PO; +CETI10TA49 PO; +HYDR-4227 PO; -PANT40TA3 PO; +PANT40TA52 PO
--- NOTE | 2020-04-01 14:48 | Diagnostic Imaging Report ---
INDICATION: Postmenopausal state. COMPARISON: None available. FINDINGS: AP Spine L1-L4: [BMD (g/cm2): 1.019] [T-Score: -1.5] [Z-Score: -0.5] [BMD Previous: na] [BMD % Change: na] LT Hip Neck: [BMD (g/cm2): 0.875] [T-Score: -1.2] [Z-Score: 0.1] LT Hip Total: [BMD (g/cm2):1.063] [T-Score:0.4] [Z-Score: 1.5] [BMD Previous: na] [BMD % Change: na] RT Hip Neck: [BMD (g/cm2):0.880] [T-Score:-1.1] [Z-Score:0.2] RT Hip Total: [BMD (g/cm2):0.997] [T-score:-0.1] [Z-Score:0.9] [BMD Previous:na] [BMD % Change:na] *Indicates significant change from prior examination based on 95% confidence level. World Health Organization criteria for BMD interpretation classify patients as Normal (T-score at or above -1.0), Osteopenic (T-score between -1.0 and -2.5) or Osteoporotic (T-score at or below -2.5). LIMITATIONS AND MODIFICATION: None. FRACTURE RISK (FRAX SCORE): The ten year probability of (%): Major Osteoporotic Fracture: [10.3] Hip Fracture: [1.5] IMPRESSION: 1. Osteopenia (Low bone mass). 2. Baseline examination. 3. See below National Osteoporosis Foundation guidelines on when to potentially initiate pharmacologic therapy. Based on the National Osteoporosis Foundation Guidelines, pharmacologic treatment should be initiated in any of the following, unless clinical conditions suggest otherwise: * Any patient with prior fragility fracture of the hip or vertebrae. A spine fracture indicates 5X risk for subsequent spine fracture and 2X risk for subsequent hip fracture. * Osteoporosis (T-score <-2.5). * Postmenopausal women and men age 50 and older with low bone mass/osteopenia (T-score between -1.0 and -2.5) by DXA and 10-year major osteoporotic fracture greater than 20% or a 10-year probability of hip fracture greater than 3%. These fracture risks are supplied above in the FRAX score, if applicable. * Clinician judgement and/or patient preferences may indicate treatment for people with 10-year fracture probabilities above or below these levels. Dictated by: Dictated on workstation # [id number]
--- NOTE | 2020-04-01 15:55 | Diagnostic Imaging Report ---
INDICATION: Routine screening. COMPARISON: No prior mammograms are available for comparison. TECHNIQUE: 2D and 3D bilateral screening mammography was performed with CAD. FINDINGS: Both breasts are heterogeneously dense, limiting the sensitivity of mammography. Both breasts contain circumscribed nodules, most consistent with benign etiologies. No spiculated mass or malignant appearing microcalcifications are seen. The axillae are unremarkable. IMPRESSION: No mammographic features suspicious for malignancy are identified. ACR BI-RADS Category 2: Benign findings. Result letter will be mailed to the patient. Note: At least 10% of breast cancer is not imaged by mammography. Dictated by: Dictated on workstation # [id number]
== END ==
LOC: RAD 12:56
PROVIDERS: ATTEND Family Medicine
DX: Z12.31 Encounter for screening mammogram for malignant neoplasm of breast (principal); M85.80 Other specified disorders of bone density and structure, unspecified site; Z78.0 Asymptomatic menopausal state
CPT/HCPCS: 77063; 77067; 77080

== ENCOUNTER 2020-09-04 10:47 | Inpatient (IN) | payer MEDICARE, OTHER ==
[~2020-09-04] VITALS: Ht 157.5 cm; Wt 85.8 kg
[2020-09-04] MEDS ORDERED: LACTATED RINGERS 1,000 ML IV ONE (11:15)
--- NOTE | 2020-09-04 11:36 | ED General ---
General Chief Complaint: Cough/Cold/Flu Symptoms Stated Complaint: COUGH,FEVER,N/V Nursing Triage Note: PT AMBULATE TO ROOM 09 WITHOUT DIFFICULTY WITH C/O FEVER, SOB, FATIGUE X7 DAYS, N/V/D. PT STATES WAS SEEN BY PCP AND GIVEN MEDICTION AND WAS TESTED FOR COVID/FLU YESTERDAY WHICH WAS NEG. Source of Information: Patient Exam Limitations: No Limitations History of Present Illness Date Seen by Provider: Sep 04, 2020 Time Seen by Provider: 11:02 Initial Comments Here with report of increasing fatigue, headache, fever, chills, nausea, vomiting and diarrhea that has worsened over the last 8 days since onset of illness on 08/28/2020. Was seen at urgent care and had Covid testing as well as influenza which was negative. Prescribed azithromycin. She did vomit that today. She is not getting better and in fact feels like she is getting worse including dehydration. She has been unable to keep food down but she states she is tolerating fluids okay including water and Gatorade. She did get Covid vaccine in April. Timing/Duration: 1 Week, Getting Worse Severity: Moderate Modifying Factors: worse with Eating Associated Systoms: Cough, Fever/Chills, Headaches, Loss of Appetite, Nausea/Vomiting, Shortness of Air, Weakness Allergies and Home Medications Allergies Coded Allergies: No Known Drug Allergies (Unverified , 10/05/19) Home Medications Cetirizine HCl 10 Mg Tablet, 10 MG PO DAILY, (Reported) Fluoxetine HCl 20 Mg Capsule, 20 MG PO DAILY, (Reported) Hydrocodone/Acetaminophen 1 Each Tablet, 1 EACH PO Q4-6HR PRN for PAIN-MODERATE Prescribed by: VALERIY PEREZ on 10/05/191815 Hydrocodone/Acetaminophen 1 Each Tablet, 1-2 TAB PO Q4H Prescribed by: MARIA LUZ FISCHER on 10/11/19 0756 Ondansetron 8 Mg Tab.rapdis, 8 MG PO Q6H PRN for NAUSEA/VOMITING Prescribed by: VALERIY PEREZ on 10/05/191814 Pantoprazole Sodium 40 Mg Tablet.dr, 40 MG PO DAILY, (Reported) Patient Home Medication List Home Medication List Reviewed: Yes Review of Systems Review of Systems Constitutional: see HPI, fever EENTM: nose congestion; No throat pain Respiratory: see HPI Cardiovascular: No chest pain, No edema Gastrointestinal: see HPI Genitourinary: No dysuria, No frequency Musculoskeletal: muscle pain; No muscle weakness Skin: no symptoms reported All Other Systems Reviewed Negative Unless Noted: Yes Past Tzkdyyy-Juqpyl-Ipiedf Hx Patient Social History Tobacco Use?: No Smoking Status: Never a Smoker Substance use?: No Alcohol Use?: Yes Pt feels they are or have been: No Immunizations Up To Date First/Initial COVID19 Vaccinat: 04/30/20 Second COVID19 Vaccination Srinivas: MAY COVID19 Vaccine Film Spooler: 05/29/20 Seasonal Allergies Seasonal Allergies: Yes Past Medical History Surgeries: Yes (R KNEE, NECK) Orthopedic Respiratory: No Cardiac: No Neurological: No Genitourinary: No Gastrointestinal: Yes Gastroesophageal Reflux, Diverticulosis, Gall Bladder Disease Musculoskeletal: No Endocrine: No HEENT: No Cancer: No Psychosocial: Yes Depression Integumentary: No Blood Disorders: Yes (THALOSEMIA MINOR) Family Medical History Reviewed Nursing Family Hx Physical Exam-Suspected Sepsis Physical Exam Vital Signs Vital Signs - First Documented 09/04/20 11:00 Temp 39.2 Pulse 112 Resp 18 B/P (MAP) 154/85 (108) O2 Delivery Room Air Capillary Refill : Less Than 3 Seconds Blood Pressure Mean: 108 Height, Weight, BMI Height: '" Weight: lbs. oz. kg; 35.00 BMI Method: General Appearance: No Apparent Distress, WD/WN HEENT: PERRL/EOMI, Pharynx Normal Neck: Non Tender, Supple Respiratory: Lungs Clear, No Accessory Muscle Use Cardiovascular: No Murmur, Tachycardia Gastrointestinal: Non Tender, Soft Back: Normal Inspection, No CVA Tenderness, No Vertebral Tenderness Extremity: Normal Range of Motion, Non Tender Neurologic/Psychiatric: Alert, Oriented x3 Skin: normal color, warm/dry Focused Exam Lactate Level 09/04/20 11:20: Lactic Acid Level 1.10 Lactic Acid Level Laboratory Tests Test 09/04/20 11:20 Lactic Acid Level 1.10 MMOL/L (0.50-2.00) Progress/Results/Core Measures Suspected Sepsis SIRS Temperature: Pulse: 112 Respiratory Rate: 18 Laboratory Tests 09/04/20 11:20: White Blood Count 10.8 Blood Pressure 154 /85 Mean: 108 09/04/20 11:20: Lactic Acid Level 1.10 Laboratory Tests 09/04/20 11:20: Creatinine 0.76, INR Comment 1.1, Platelet Count 372, Total Bilirubin 0.8 Results/Orders Lab Results Laboratory Tests Test 09/04/20 11:20 09/04/20 11:22 09/04/20 13:10 Range/Units White Blood Count 10.8 4.3-11.0 10^3/uL Red Blood Count 4.01 3.80-5.11 10^6/uL Hemoglobin 8.7 L 11.5-16.0 g/dL Hematocrit 27 L 35-52 % Mean Corpuscular Volume 67 L 80-99 fL Mean Corpuscular Hemoglobin 22 L 25-34 pg Mean Corpuscular Hemoglobin Concent 33 32-36 g/dL Red Cell Distribution Width 14.8 H 10.0-14.5 % Platelet Count 372 130-400 10^3/uL Mean Platelet Volume 9.3 9.0-12.2 fL Immature Granulocyte % (Auto) 1 % Neutrophils (%) (Auto) 77 H 42-75 % Lymphocytes (%) (Auto) 10 L 12-44 % Monocytes (%) (Auto) 11 0-12 % Eosinophils (%) (Auto) 1 0-10 % Basophils (%) (Auto) 0 0-10 % Neutrophils # (Auto) 8.3 H 1.8-7.8 10^3/uL Lymphocytes # (Auto) 1.1 1.0-4.0 10^3/uL Monocytes # (Auto) 1.2 H 0.0-1.0 10^3/uL Eosinophils # (Auto) 0.1 0.0-0.3 10^3/uL Basophils # (Auto) 0.0 0.0-0.1 10^3/uL Immature Granulocyte # (Auto) 0.1 0.0-0.1 10^3/uL Prothrombin Time 14.3 12.2-14.7 SEC INR Comment 1.1 0.8-1.4 Activated Partial Thromboplast Time 38 H 24-35 SEC D-Dimer 5.14 H 0.00-0.49 UG/ML Sodium Level 135 135-145 MMOL/L Potassium Level 3.1 L 3.6-5.0 MMOL/L Chloride Level 97 L 98-107 MMOL/L Carbon Dioxide Level 25 21-32 MMOL/L Anion Gap 13 5-14 MMOL/L Blood Urea Nitrogen 6 L 7-18 MG/DL Creatinine 0.76 0.60-1.30 MG/DL Estimat Glomerular Filtration Rate > 60 BUN/Creatinine Ratio 8 Glucose Level 98 70-105 MG/DL Lactic Acid Level 1.10 0.50-2.00 MMOL/L Calcium Level 8.9 8.5-10.1 MG/DL Corrected Calcium 9.3 8.5-10.1 MG/DL Total Bilirubin 0.8 0.1-1.0 MG/DL Aspartate Amino Transf (AST/SGOT) 28 5-34 U/L Alanine Aminotransferase (ALT/SGPT) 27 0-55 U/L Alkaline Phosphatase 155 H 40-136 U/L C-Reactive Protein High Sensitivity 22.64 H 0.00-0.50 MG/DL Total Protein 7.2 6.4-8.2 GM/DL Albumin 3.5 3.2-4.5 GM/DL Procalcitonin 0.16 H <0.10 NG/ML Influenza Type A (RT-PCR) Not Detected Not Detecte Influenza Type B (RT-PCR) Not Detected Not Detecte SARS-CoV-2 RNA (RT-PCR) Not Detected Not Detecte Urine Color YELLOW Urine Clarity CLEAR Urine pH 7.0 5-9 Urine Specific [place]pton 1.010 L 1.016-1.022 Urine Protein 1+ H NEGATIVE Urine Glucose (UA) NEGATIVE NEGATIVE Urine Ketones NEGATIVE NEGATIVE Urine Nitrite NEGATIVE NEGATIVE Urine Bilirubin NEGATIVE NEGATIVE Urine Urobilinogen 1.0 < = 1.0 MG/DL Urine Leukocyte Esterase NEGATIVE NEGATIVE Urine RBC (Auto) TRACE-I NEGATIVE Urine RBC NONE /HPF Urine WBC 0-2 /HPF Urine Squamous Epithelial Cells 2-5 /HPF Urine Crystals NONE /LPF Urine Bacteria TRACE /HPF Urine Casts NONE /LPF Urine Mucus NEGATIVE /LPF Urine Culture Indicated CULTURE PENDING My Orders Orders - NARDA KING MD Cbc With Automated Diff (09/04/20 11:07) Comprehensive Metabolic Panel (09/04/20 11:07) Blood Culture (09/04/20 11:07) Sputum Culture (09/04/20 11:07) Urinalysis (09/04/20 11:07) Urine Culture (09/04/20 11:07) Protime With Inr (09/04/20 11:07) Partial Thromboplastin Time (09/04/20 11:07) Chest 1 View, Ap/Pa Only (09/04/20 11:07) Ed Iv/Invasive Line Start (09/04/20 11:07) Vital Signs Adult Sepsis Patie Q15M (09/04/20 11:07) O2 (09/04/20 11:07) Remove Rings In Anticipation O (09/04/20 11:07) Lactic Acid Analyzer (09/04/20 11:07) Fibrin Degradation Products (09/04/20 11:07) Procalcitonin (Pct) (09/04/20 11:07) Hs C Reactive Protein (09/04/20 11:07) Covid 19 Inhouse Test (09/04/20 11:07) Influenza A And B By Pcr (09/04/20 11:07) Lactated Ringers (Lr 1000 Ml Iv Solution (09/04/20 11:15) Ct Angio Chest W (09/04/20 13:16) Iohexol Injection (Omnipaque 350 Mg/Ml 1 (09/04/20 13:45) Received Contrast (Hold Metformin- Contr (09/04/20 13:45) Ns (Ivpb) (Sodium Chloride 0.9% Ivpb Bag (09/04/20 13:45) Azithromycin 500mg Ivpb (09/04/20 14:30) Ceftriaxone 1 Gram Ivp (09/04/20 14:30) Medications Given in ED Current Medications Medications Dose Ordered Sig/Nadine Route Start Time Stop Time Status Last Admin Dose Admin Iohexol 100 ml ONCE ONCE IV 09/04/20 13:45 09/04/20 13:46 DC 09/04/20 14:02 83 ML Lactated Ringer's 1,000 ml @ 0 mls/hr Q0M ONCE IV 09/04/20 11:15 09/04/20 11:16 DC 09/04/20 11:24 999 MLS/HR Sodium Chloride 100 ml ONCE ONCE IV 09/04/20 13:45 09/04/20 13:46 DC 09/04/20 14:02 80 ML Vital Signs/I&O 09/04/20 09/04/20 11:00 11:07 Temp 39.2 Pulse 112 Resp 18 B/P (MAP) 154/85 (108) O2 Delivery Room Air Room Air Capillary Refill : Less Than 3 Seconds Blood Pressure Mean: 108 Progress Note : Progress Note Seen and evaluated. Sepsis protocol initiated. We will recheck Covid and influenza given current presentation. LR 1 L bolus. Monitor patient. 1330: CT angiogram of the chest ordered due to markedly elevated D-dimer. Heart rate 105 with O2 sat 93% on room air. Monitor patient. 1420: CT angiogram does show a left lower lobe pneumonia. Patient is having difficulty with taking oral antibiotics and O2 sat is marginal. She will require hospitalization. I did discuss the case with Dr. Najera who accepts patient for admission, inpatient status. We will initiate Rocephin and azithromycin and sepsis order set protocol. Findings and concerns discussed with the patient who agrees with plan and admission. Diagnostic Imaging Diagonstic Imaging: Xray Plain Films/CT/US/NM/MRI: chest Comments [facility] [place] NAME: HEMANTH GONZALES [facility] REC#: [id number] PT STATUS: REG ER : 1950 PHYSICIAN: NARDA KING MD ADMIT DATE: 09/04/20/ER Draft Date of Exam:09/04/20 CHEST 1 VIEW, AP/PA ONLY INDICATION: Sepsis. COMPARISON: None FINDINGS: Single view of the chest demonstrates cardiac enlargement with slight central vascular congestion. There is no pneumothorax or effusion. Osseous structures are normal. IMPRESSION: Cardiac enlargement with slight central vascular congestion. Dictated on workstation # [id number] Dict: 09/04/20 1259 Trans: 09/04/20 1301 [facility] [id number] Interpreted by: KRYSTAL CHAVEZ Electronically signed by: Diagonstic Imaging: CT Plain Films/CT/US/NM/MRI: chest Comments NAME: JANETISIDROHEMANTH [facility] REC#: [id number] PT STATUS: REG ER : 1950 PHYSICIAN: NARDA KING MD ADMIT DATE: 09/04/20/ER Draft Date of Exam:09/04/20 CT ANGIO CHEST W PROCEDURE: CT angiography of the chest with contrast. TECHNIQUE: Multiple contiguous axial images were obtained through the chest after uneventful bolus administration of intravenous contrast. 3D reconstructed CTA MIP acquisitions were also performed. Auto Exposure Controls were utilized during the CT exam to meet ALARA standards for radiation dose reduction. INDICATION: Elevated D-dimer. COMPARISON: No prior studies are available for comparison. Evaluation of the pulmonary arterial system is without evidence of thromboembolism. No filling defects are seen within central, lobar or segmental branches. The thoracic aorta is normal caliber. There is no dissection. No pericardial fluid is seen. There is trace left pleural fluid. Parenchymal evaluation does show consolidation in the medial aspect of the left lower lobe with scattered areas of airspace density in left lower lobe consistent with pneumonia. The right lung is clear. The upper abdomen is unremarkable. IMPRESSION: 1. No evidence of pulmonary embolism. 2. Left lower lobe pneumonia with trace left pleural effusion. Dictated on workstation # [id number] Dict: 09/04/20 1408 Trans: 09/04/20 1412 [facility] [id number] Interpreted by: LIBBY CAROLINA MD Electronically signed by: Reviewed: Reviewed by Me Departure Impression Primary Impression: Left lower lobe pneumonia Qualified Codes: J18.9 - Pneumonia, unspecified organism Disposition: ADMITTED INPATIENT Condition: Stable Admissions Decision to Admit Reason: Admit from ER (General) Decision to Admit/Date: Sep 04, 2020 Time/Decision to Admit Time: 14:20 Departure-Patient Inst. Referrals: COLTEN NAJERA MD (PCP/Family) Primary Care Physician NARDA KING MD Sep 04, 2020 11:36
[2020-09-04 11:38] LABS: BASOPHILS % (AUTO) 0 % (0-10); EOSINOPHILS # (AUTO) 0.1 10^3/uL (0.0-0.3); EOSINOPHILS % (AUTO) 1 % (0-10); HEMATOCRIT 27 % (35-52); HEMOGLOBIN 8.7 g/dL (11.5-16.0); LYMPHOCYTES # (AUTO) 1.1 10^3/uL (1.0-4.0); LYMPHOCYTES % (AUTO) 10 % (12-44); MEAN CORPUSCULAR HEMOGLOBIN 22 pg (25-34); MEAN CORPUSCULAR HGB CONC 33 g/dL (32-36); MEAN CORPUSCULAR VOLUME 67 fL (80-99); MEAN PLATELET VOLUME 9.3 fL (9.0-12.2); MONOCYTES # (AUTO) 1.2 10^3/uL (0.0-1.0); MONOCYTES % (AUTO) 11 % (0-12); NEUTROPHILS # (AUTO) 8.3 10^3/uL (1.8-7.8); NEUTROPHILS % (AUTO) 77 % (42-75); PLATELET COUNT 372 10^3/uL (130-400); WHITE BLOOD COUNT 10.8 10^3/uL (4.3-11.0)
[2020-09-04 11:52] LABS: ALBUMIN 3.5 GM/DL (3.2-4.5); CHLORIDE 97 MMOL/L (98-107); POTASSIUM 3.1 MMOL/L (3.6-5.0); SODIUM 135 MMOL/L (135-145)
[2020-09-04 11:53] LABS: CALCIUM 8.9 MG/DL (8.5-10.1)
[2020-09-04 11:55] LABS: GLUCOSE 98 MG/DL (70-105); TOTAL PROTEIN 7.2 GM/DL (6.4-8.2)
[2020-09-04 11:56] LABS: BILIRUBIN,TOTAL 0.8 MG/DL (0.1-1.0); CARBON DIOXIDE 25 MMOL/L (21-32)
[2020-09-04 11:58] LABS: ALKALINE PHOSPHATASE 155 U/L (40-136); CREATININE SERUM 0.76 MG/DL (0.60-1.30); GFR ESTIMATED > 60
[2020-09-04 11:59] LABS: BUN/CREATININE RATIO 8; FIBRIN DEGRADATION PRODUCTS 5.14 UG/ML (0.00-0.49); INR 1.1 (0.8-1.4); PROTHROMBIN TIME PATIENT 14.3 SEC (12.2-14.7)
[2020-09-04 12:01] LABS: ALANINE AMINOTRANSFERASE 27 U/L (0-55)
--- NOTE | 2020-09-04 13:01 | Diagnostic Imaging Report ---
INDICATION: Sepsis. COMPARISON: None FINDINGS: Single view of the chest demonstrates cardiac enlargement with slight central vascular congestion. There is no pneumothorax or effusion. Osseous structures are normal. IMPRESSION: Cardiac enlargement with slight central vascular congestion. Dictated by: Dictated on workstation # [id number]
[2020-09-04 13:21] LABS: BILIRUBIN,URINE NEGATIVE (NEGATIVE); CLARITY,URINE CLEAR; COLOR,URINE YELLOW; GLUCOSE, URINE (UA) NEGATIVE (NEGATIVE); KETONES,URINE NEGATIVE (NEGATIVE); LEUKOCYTE ESTERASE ,URINE NEGATIVE (NEGATIVE); NITRITE,URINE NEGATIVE (NEGATIVE); PROTEIN,URINE 1+ (NEGATIVE)
[2020-09-04 13:39] LABS: BACTERIA,URINE TRACE /HPF; WBC,URINE 0-2 /HPF
[2020-09-04] MEDS ORDERED: IOHEXOL 350 MG/ML 100 ML (OMNIPAQUE 350) VIAL IV ONE (13:45)
[2020-09-04] MEDS ORDERED: NS 100 ML (IVPB) BAG IV ONE (13:45)
[2020-09-04] MEDS ORDERED: HOLD METFORMIN - RECEIVED CONTRAST 20 ML VIAL IV SCH (13:45)
--- NOTE | 2020-09-04 14:13 | Diagnostic Imaging Report ---
PROCEDURE: CT angiography of the chest with contrast. TECHNIQUE: Multiple contiguous axial images were obtained through the chest after uneventful bolus administration of intravenous contrast. 3D reconstructed CTA MIP acquisitions were also performed. Auto Exposure Controls were utilized during the CT exam to meet ALARA standards for radiation dose reduction. INDICATION: Elevated D-dimer. COMPARISON: No prior studies are available for comparison. Evaluation of the pulmonary arterial system is without evidence of thromboembolism. No filling defects are seen within central, lobar or segmental branches. The thoracic aorta is normal caliber. There is no dissection. No pericardial fluid is seen. There is trace left pleural fluid. Parenchymal evaluation does show consolidation in the medial aspect of the left lower lobe with scattered areas of airspace density in left lower lobe consistent with pneumonia. The right lung is clear. The upper abdomen is unremarkable. IMPRESSION: 1. No evidence of pulmonary embolism. 2. Left lower lobe pneumonia with trace left pleural effusion. Dictated by: Dictated on workstation # [id number]
[2020-09-04] MEDS ORDERED: AZITHROMYCIN INJECTION 500 MG in NS (IVPB) 250 ML IV STA (14:30)
[2020-09-04] MEDS ORDERED: cefTRIAXone 1,000 MG in WATER (STERILE) FOR INJECTION 10 ML IV STA (14:30)
[2020-09-04] MEDS ORDERED: CATHETER FLUSH 10 ML SYR IV PRN (15:15)
[2020-09-04] MEDS ORDERED: ONDANSETRON 4 MG/2 ML (SDV) Z0FRAN IVP PRN (15:15)
[2020-09-04] MEDS ORDERED: AZIT250T12 PO (15:28)
[2020-09-04] MEDS ORDERED: PANT20TA18 PO (15:28)
[2020-09-04 16:05] VITALS: BP 139/66
--- NOTE | 2020-09-04 17:41 | History & Physical ---
History of Present Illness History of Present Illness Reason for visit/HPI PT IS A 69 Y/O FEMALE WHO IS KNOWN TO ME FROM CLINIC. SHE PRESENTED TO THE EMERGENCY DEPARTMENT AFTER HAVING NAUSEA, EMESIS AND UNABLE TO KEEP DOWN ANTIBIOTICS FOR PNEUMONIA TREATMENT. SHE DENIES CHEST PAIN, ABDOMINAL PAIN, BUT HAS HAD SOME LOOSE STOOLS SINCE ADM ISSION. Date of Admission Sep 04, 2020 at 14:20 Date Seen by a Provider: Sep 04, 2020 Time Seen by a Provider: 17:40 Attending Physician Colten Najera MD Admitting Physician Colten Najera MD Consult Allergies and Home Medications Allergies Coded Allergies: No Known Drug Allergies (Unverified , 09/04/20) Home Medications Azithromycin 250 Mg Tablet, 250 MG PO DAILY, (Reported) STARTED 09-04-2020 #6/5 DAY SUPPLY (2 TABS DAY AND THEN 1 TAB DAILY THEREAFTER UNTIL ALL TAKEN) Last Action: Held Fluoxetine HCl 20 Mg Capsule, 20 MG PO DAILY, (Reported) Last Action: Continued Pantoprazole Sodium 20 Mg Tablet.dr, 20 MG PO DAILY, (Reported) Last Action: Continued Patient Home Medication List Home Medication List Reviewed: Yes Past Vzcmjig-Kpkzcm-Vsiogh Hx Past Med/Social Hx: Reviewed Nursing Past Med/Soc Hx, Reviewed and Corrections made Patient Social History Marrital Status: Living Status: LIVES WITH SIG OTHER AT THEIR HOME Employed/Student: retired Alcohol Use: Occasionally Uses Alcohol Beverage of Choice: Beer Smoking Status: Never a Smoker 2nd Hand Smoke Exposure: No Physical Abuse Screen: No Sexual Abuse: No Recent Foreign Travel: No Contact w/other who traveled: No Recent Hopitalizations: No Recent Infectious Disease Expo: No Seasonal Allergies Seasonal Allergies: Yes Past Medical History Surgeries: Orthopedic Currently Using CPAP: No Currently Using BIPAP: No : No Reproductive: No Sexually Transmitted Disease: No HIV/AIDS: No Female Reproductive Disorders: Denies Gastrointestinal: Gastroesophageal Reflux, Diverticulosis, Gall Bladder Disease Psychosocial: Depression History of Blood Disorders: Yes (THALOSEMIA MINOR) Family History Reviewed Nursing Family Hx No Pertinent Family Hx Review of Systems Constitutional: chills, fever, malaise, weakness EENTM: No hoarseness, No throat pain Respiratory: cough, dyspnea on exertion, short of breath Cardiovascular: No chest pain, No edema Gastrointestinal: No abdominal pain; diarrhea, nausea, vomiting Genitourinary: no symptoms reported Musculoskeletal: muscle weakness Skin: no symptoms reported Psychiatric/Neurological: Denies Anxiety, Denies Depressed; Weakness All Other Systems Reviewed Negative Unless Noted: Yes Physical Exam Vital Signs Vital Signs - First Documented 09/04/20 09/04/20 11:00 15:01 Temp 39.2 Pulse 112 Resp 18 B/P (MAP) 154/85 (108) Pulse Ox 98 O2 Delivery Room Air Capillary Refill : Less Than 3 Seconds Height, Weight, BMI Height: '" Weight: lbs. oz. kg; 34.58 BMI Method: General Appearance: WD/WN, Mild Distress HEENT: PERRL/EOMI, Pharynx Normal Neck: Full Range of Motion, Normal Inspection, Non Tender, Supple Respiratory: Chest Non Tender, Crackles (LEFT MID-LUNG TO BASE), Decreased Breath Sounds Cardiovascular: Regular Rate, Rhythm, No Murmur, Normal Peripheral Pulses Gastrointestinal: Normal Bowel Sounds, No Organomegaly, No Pulsatile Mass, Non Tender, Soft Rectal: Deferred Back: Normal Inspection, No Vertebral Tenderness Extremity: Normal Capillary Refill, Normal Inspection, Normal Range of Motion, Non Tender, No Calf Tenderness, No Pedal Edema Neurologic/Psychiatric: Alert, Oriented x3, No Motor/Sensory Deficits, Normal 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 ANEMIA DUE TO THALASSEMIA MINOR NAME: HEMANTH [facility] REC#: [id number] PT STATUS: ADM IN : 1950 PHYSICIAN: NARDA KING MD ADMIT DATE: 09/04/20 Signed Date of Exam:09/04/20 PROCEDURE: CT angiography of the chest with contrast. INDICATION: Elevated D-dimer. COMPARISON: No prior studies are available for comparison. Evaluation of the pulmonary arterial system is without evidence of th romboembolism. No filling defects are seen within central, lobar or segmental branches. The thoracic aorta is normal caliber. There is no dissection. No pericardial fluid is seen. There is trace left pleural fluid. Parenchymal evaluation does show consolidation in the medial aspect of the left lower lobe with scattered areas of airspace density in left lower lobe consistent with pn eumonia. The right lung is clear. The upper abdomen is unremarkable. IMPRESSION: 1. No evidence of pulmonary embolism. 2. Left lower lobe pneumonia with trace left pleural effusion. Dict: 09/04/20 1408 Trans: 09/04/20 1552 [facility] [id number] Interpreted by: LIBBY CAROLINA MD Electronically signed by: LIBBY CAROLINA MD 09/04/20 1552 Admission Diagnosis PNEUMONIA SEPSIS ELEVATED CRP DEPRESSION HYPOKALEMIA THALASSEMIA MINOR ANEMIA Admission Status: Inpatient Order (span 2 midnights) Reason for Inpatient Admission: INPT ADMISSION FOR PNEUMONIA - WILL REQUIRE AT LEAST 48-72 HOURS IN THE HOSPITAL FOR IV ANTIBIOTICS COLTEN NAJERA MD Sep 04, 2020 17:41
[2020-09-04] MEDS ORDERED: ACETAMINOPHEN 325 MG TABLET PO PRN (18:30)
[2020-09-04] MEDS: NS IV 1000 ML 1,000 ML IV SCH (18:40)
[2020-09-04] MEDS ORDERED: MELATONIN 3 MG TABLET PO PRN (18:45)
[2020-09-04 19:49] VITALS: BP 137/61
[2020-09-04] MEDS: RT-ALBUTEROL/IPRATROPIUM 3 ML (DUONEB) VIAL INH SCH (20:26)
[2020-09-04] MEDS: CATHETER FLUSH 10 ML SYR IV SCH (20:46)
[2020-09-04] MEDS: POTASSIUM CL 10MEQ/50ML IVPB 50 ML IV SCH ×3 (21:39→23:36)
[2020-09-04 23:47] VITALS: BP 145/76
[2020-09-05] VITALS (9 sets, daily range): BP systolic 128–155; BP diastolic 61–76
[2020-09-05] MEDS: POTASSIUM CL 10MEQ/50ML IVPB 50 ML IV SCH (01:19)
[2020-09-05] MEDS: NS IV 1000 ML 1,000 ML IV SCH ×2 (03:05→07:35)
[2020-09-05] MEDS: CATHETER FLUSH 10 ML SYR IV SCH ×3 (04:43→21:39)
[2020-09-05 05:44] LABS: BASOPHILS % (AUTO) 0 % (0-10); EOSINOPHILS # (AUTO) 0.1 10^3/uL (0.0-0.3); EOSINOPHILS % (AUTO) 1 % (0-10); HEMATOCRIT 24 % (35-52); HEMOGLOBIN 7.6 g/dL (11.5-16.0); LYMPHOCYTES # (AUTO) 0.9 10^3/uL (1.0-4.0); LYMPHOCYTES % (AUTO) 9 % (12-44); MEAN CORPUSCULAR HEMOGLOBIN 21 pg (25-34); MEAN CORPUSCULAR HGB CONC 32 g/dL (32-36); MEAN CORPUSCULAR VOLUME 67 fL (80-99); MEAN PLATELET VOLUME 9.3 fL (9.0-12.2); MONOCYTES # (AUTO) 1.3 10^3/uL (0.0-1.0); MONOCYTES % (AUTO) 13 % (0-12); NEUTROPHILS # (AUTO) 7.9 10^3/uL (1.8-7.8); NEUTROPHILS % (AUTO) 76 % (42-75); PLATELET COUNT 369 10^3/uL (130-400); WHITE BLOOD COUNT 10.3 10^3/uL (4.3-11.0)
[2020-09-05 06:04] LABS: CHLORIDE 101 MMOL/L (98-107); POTASSIUM 3.2 MMOL/L (3.6-5.0); SODIUM 135 MMOL/L (135-145)
[2020-09-05 06:06] LABS: GLUCOSE 109 MG/DL (70-105)
[2020-09-05 06:07] LABS: CARBON DIOXIDE 22 MMOL/L (21-32)
[2020-09-05 06:10] LABS: CREATININE SERUM 0.69 MG/DL (0.60-1.30); GFR ESTIMATED > 60
[2020-09-05 06:11] LABS: BUN/CREATININE RATIO 6
[2020-09-05] MEDS: RT-ALBUTEROL/IPRATROPIUM 3 ML (DUONEB) VIAL INH SCH ×3 (07:10→20:36)
[2020-09-05] MEDS: FLUoxetine HCL 20 MG (PROzac) CAP PO SCH (07:35)
[2020-09-05] MEDS: PANTOPRAZOLE 20 MG TABLET (PROTONIX) PO SCH (07:36)
--- NOTE | 2020-09-05 09:17 | Diagnostic Imaging Report ---
INDICATION: Pneumonia. COMPARISON: CT chest dated 09/04/2020. FINDINGS: Frontal and lateral radiographic views of the chest were obtained and show normal cardiac silhouette and pulmonary vasculature. Lungs show interval increase in left basilar patchy airspace opacities. There is no large effusion or pneumothorax. Osseous structures show no acute abnormalities. IMPRESSION: 1. Interval increase in patchy left basilar infiltrate. Dictated by: Dictated on workstation # [id number]
--- NOTE | 2020-09-05 10:06 | Progress Note ---
Subjective Subjective Date Seen by Provider: Sep 05, 2020 Time Seen by Provider: 10:00 PT IS A 69 Y/O FEMALE WHO HAS BEEN ADMITTED TO THE HOSPITAL FOR PNEUMONIA - RETROCARDIAC. PT REPORTS THAT SHE IS FEELING ABOUT THE SAME, HER COUGH WAS PRETTY BAD OVER NIGHT. SHE DENIES CHEST PAIN, ABDOMINAL PAIN, HAS HAD LOOSE STOOLS. Review of Systems General: No Chills; Fatigue HEENT: No Dysphasia Pulmonary: Dyspnea, Cough Cardiovascular: No: Chest Pain, Palpitations Gastrointestinal: No: Nausea, Abdominal Pain Genitourinary: No Dysuria Musculoskeletal: back pain Neurological: Weakness; No: Confusion All Other Systems Reviewed All Other Systems Reviewed: Yes Objective Exam Vital Signs Vital Signs - First Documented 09/04/20 09/04/20 09/05/20 11:00 15:01 07:11 Temp 39.2 Pulse 112 Resp 18 B/P (MAP) 154/85 (108) Pulse Ox 98 O2 Delivery Room Air O2 Flow Rate 2.00 Capillary Refill : Less Than 3 Seconds General Appearance: WD/WN, Mild Distress HEENT: PERRL/EOMI, Pharynx Normal Neck: Full Range of Motion, Normal Inspection, Non Tender, Supple Respiratory: Chest Non Tender, Crackles (LEFT MID-LUNG TO BASE), Decreased Breath Sounds Cardiovascular: Regular Rate, Rhythm, No Murmur, Normal Peripheral Pulses Gastrointestinal: Normal Bowel Sounds, No Organomegaly, No Pulsatile Mass, Non Tender, Soft Back: Normal Inspection, No Vertebral Tenderness Extremity: Normal Capillary Refill, Normal Inspection, Normal Range of Motion, Non Tender, No Calf Tenderness, No Pedal Edema Neurologic/Psychiatric: Alert, Oriented x3, No Motor/Sensory Deficits, Normal 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, 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 Norm as Tested Skin: Normal Color, Warm/Dry Lymphatic: No Adenopathy Results Lab Laboratory Tests 09/04/20 11:20: White Blood Count 10.8, Red Blood Count 4.01, Hemoglobin 8.7L, Hematocrit 27L, Mean Corpuscular Volume 67L, Mean Corpuscular Hemoglobin 22L, Mean Corpuscular Hemoglobin Concent 33, Red Cell Distribution Width 14.8H, Platelet Count 372, Mean Platelet Volume 9.3, Immature Granulocyte % (Auto) 1, Neutrophils (%) (Auto) 77H, Lymphocytes (%) (Auto) 10L, Monocytes (%) (Auto) 11, Eosinophils (%) (Auto) 1, Basophils (%) (Auto) 0, Neutrophils # (Auto) 8.3H, Lymphocytes # (Auto) 1.1, Monocytes # (Auto) 1.2H, Eosinophils # (Auto) 0.1, Basophils # (Auto) 0.0, Immature Granulocyte # (Auto) 0.1, Prothrombin Time 14.3, INR Comment 1.1, Activated Partial Thromboplast Time 38H, D-Dimer 5.14H, Sodium Level 135, Potassium Level 3.1L, Chloride Level 97L, Carbon Dioxide Level 25, Anion Gap 13, Blood Urea Nitrogen 6L, Creatinine 0.76, Estimat Glomerular Filtration Rate > 60, BUN/Creatinine Ratio 8, Glucose Level 98, Lactic Acid Level 1.10, Calcium Level 8.9, Corrected Calcium 9.3, Total Bilirubin 0.8, Aspartate Amino Transf (AST/SGOT) 28, Alanine Aminotransferase (ALT/SGPT) 27, Alkaline Phosphatase 155H, C-Reactive Protein High Sensitivity 22.64H, Total Protein 7.2, Albumin 3.5, Procalcitonin 0.16H 09/04/20 11:22: Influenza Type A (RT-PCR) Not Detected, Influenza Type B (RT-PCR) Not Detected, SARS-CoV-2 RNA (RT-PCR) Not Detected 09/04/20 13:10: Urine Color YELLOW, Urine Clarity CLEAR, Urine pH 7.0, Urine Specific [place] 1.010L, Urine Protein 1+H, Urine Glucose (UA) NEGATIVE, Urine Ketones NEGATIVE, Urine Nitrite NEGATIVE, Urine Bilirubin NEGATIVE, Urine Urobilinogen 1.0, Urine Leukocyte Esterase NEGATIVE, Urine RBC (Auto) TRACE-I, Urine RBC NONE, Urine WBC 0-2, Urine Squamous Epithelial Cells 2-5, Urine Crystals NONE, Urine Bacteria TRACE, Urine Casts NONE, Urine Mucus NEGATIVE, Urine Culture Indicated CULTURE PENDING 09/05/20 05:15: White Blood Count 10.3, Red Blood Count 3.56L, Hemoglobin 7.6L, Hematocrit 24L, Mean Corpuscular Volume 67L, Mean Corpuscular Hemoglobin 21L, Mean Corpuscular Hemoglobin Concent 32, Red Cell Distribution Width 14.8H, Platelet Count 369, Mean Platelet Volume 9.3, Immature Granulocyte % (Auto) 1, Neutrophils (%) (Auto) 76H, Lymphocytes (%) (Auto) 9L, Monocytes (%) (Auto) 13H, Eosinophils (%) (Auto) 1, Basophils (%) (Auto) 0, Neutrophils # (Auto) 7.9H, Lymphocytes # (Auto) 0.9L, Monocytes # (Auto) 1.3H, Eosinophils # (Auto) 0.1, Basophils # (Auto) 0.0, Immature Granulocyte # (Auto) 0.1, Sodium Level 135, Potassium Level 3.2L, Chloride Level 101, Carbon Dioxide Level 22, Anion Gap 12, Blood Urea Nitrogen 4L, Creatinine 0.69, Estimat Glomerular Filtration Rate > 60, BUN/Creatinine Ratio 6, Glucose Level 109H, Calcium Level 8.0L Microbiology 09/04/20 Urine Culture - Final, Complete Mixed Bacterial Shila Assessment/Plan Assessment/Plan Admission Dx PNEUMONIA SEPSIS ELEVATED CRP DEPRESSION HYPOKALEMIA THALASSEMIA MINOR ANEMIA Admission Dx PNEUMONIA SEPSIS ELEVATED CRP DEPRESSION HYPOKALEMIA THALASSEMIA MINOR ANEMIA Clinical Quality Measures Admission Status Admission Dx PNEUMONIA SEPSIS ELEVATED CRP DEPRESSION HYPOKALEMIA THALASSEMIA MINOR ANEMIA COLTEN JACK MD Sep 05, 2020 10:06
[2020-09-05] MEDS ORDERED: POTASSIUM CHLORIDE INJ 20 MEQ in NS IV 1000 ML 1,000 ML IV SCH (10:25)
[2020-09-05] MEDS ORDERED: methylPREDNISolone 40 MG/ML (Solu-MEDROL) VIAL IV ONE (10:30)
[2020-09-05] MEDS ORDERED: FUROSEMIDE 40 MG/4 ML INJ (LASIX) IVP ONE (10:30)
[2020-09-05] MEDS ORDERED: KCL 20 MEQ TAB (K-DUR) PO ONE (10:30)
[2020-09-05] MEDS ORDERED: CHLORASEPTIC LOZENGE MM PRN (10:30)
[2020-09-05] MEDS ORDERED: NS IV 500 ML 500 ML IV SCH ×2 (10:30)
[2020-09-05] MEDS ORDERED: SALIVA STIMULANT MOUTH SPRAY (BIOTENE) 1.5 OZ MM PRN (10:30)
[2020-09-05] MEDS ORDERED: diphenhydrAMINE 50 MG/ML INJ (BENADRYL) IVP PRN (10:30)
[2020-09-05] MEDS: DEXTROMETHORPHAN SUSP 30 MG/5 ML 30 ML (DELSYM) PO SCH ×2 (11:37→21:39)
[2020-09-05] MEDS: DICLOFENAC 1% GEL 100 GM (VOLTAREN) TUBE TOP SCH ×4 (11:38→21:39)
--- NOTE | 2020-09-05 12:58 | Physical Therapy Evaluation ---
PT Evaluation-General Medical Diagnosis Admission Date Sep 04, 2020 at 14:20 Medical Diagnosis: LLL pneumonia Onset Date: Sep 04, 2020 Therapy Diagnosis Therapy Diagnosis: debility Precautions Precautions/Isolations: Fall Prevention, Standard Precautions Referral Physician: Reinaldo Reason for Referral: Evaluation/Treatment Medical History Pertinent Medical History: GERD Current History Ambulated to ER room with c/o fever,SOA and fatigue x 7 days Reviewed History: Yes Social History Home: Single Level Current Living Status: Significant Other Prior Prior Level of Function SCALE: Activities may be completed with or without assistive devices. 7-Axrzudfdii-gaibzux completes the activity by him/herself with no assistance from a helper. 5-Set-up or Clean-up Assistance-helper sets up or cleans up; patient completes activity. [place] assists only prior to or following the activity. 4-Supervision or Touching Assistance-helper provides verbal cues and/or touching/steadying and/or contact guard assistance as patient completes activity. Assistance may be provided throughout the activity or intermittently. 3-Partial/Moderate Assistance-helper does LESS THAN HALF the effort. [place] lifts, holds or supports trunk or limbs, but provides less than half the effort. 2-Substantial/Maximal Assistance-helper does MORE THAN HALF the effort. [place] lifts or holds trunk or limbs and provides more than half the effort. 5-Hwawpdoby-mkkgkg does ALL the effort. Patient does none of the effort to complete the activity. Or, the assistance of 2 or more helpers is required for the patient to complete the activity. If activity was not attempted, code reason: 7-Patient Refused. 9-Not Applicable-not attempted and the patient did not perform the activity before the current illness, exacerbation or injury. 10-Not Attempted due to Environmental Limitations-(lack of equipment, weather restraints, etc.). 88-Not Attempted due to Medical Conditions or Safety Concerns. Bed Mobility: 6 Transfers (B,C,W/C): 6 Gait: 6 Stairs: 6 Indoor Mobility (Ambulation): Independent Stairs: Independent Prior Devices Use: None PT Evaluation-Current Subjective Patient reports she is up independently in room. Does agree to PT assessment. Objective Patient Orientation: Normal For Age Attachments: IV ROM/Strength ROM Lower Extremities bilateral LE WFL Strength Lower Extremities 4+/5 grossly bilateral LE Integumentary/Posture Bowel Incontinence: No Bladder Incontinence: No Posture WFL Neuromuscular (Tone, Coordination, Reflexes) grossly intact Sensory Vision: Functional Hearing: Functional Sensation Right Lower Extremit: Intact Sensation Left Lower Extremity: Intact Transfers Sit to Lying (QC): 6 Lying to Sitting/Side of Bed(Q: 6 Sit to Stand (QC): 6 Chair/Veh-wp-Kyzav Xfer(QC): 6 Toilet Transfer (QC): 6 Gait Does the Patient Walk?: Yes Mode of Locomotion: Walk Anticipated Mode of Locomotion: Walk Walk 10 feet (QC): 6 Walk 50 ft with 2 Turns(QC): 6 Walk 150 ft (QC): 6 Distance: 250' Gait Assistive Device: None Comments/Gait Description safe and functional with no deviation Balance Sitting Static: Normal Sitting Dynamic: Normal Standing Static: Normal Standing Dynamic: Normal Assessment/Needs 69 y.o. female, is currently at [facility] and does not require skilled therapy intervention. PT instructed patient and family to ambulate PRN in hallway. Rehab Potential: Fair PT Plan Treatment/Plan Treatment Plan: Discontinue PT, goals met Treatment Duration: Sep 05, 2020 Frequency: 1 time per week Estimated Hrs Per Day: .25 hour per day Patient and/or Family Agrees t: Yes Time/GCodes Time In: 1240 Time Out: 1251 Total Billed Treatment Time: 11 Total Billed Treatment 1 visit EVLow 11 min WISAM BORJA PT Sep 05, 2020 12:58
[2020-09-05] MEDS: NS W/KCL 20 MEQ/L 1,000 ML IV SCH (14:46)
[2020-09-05] MEDS: AZITHROMYCIN INJECTION 500 MG in NS (IVPB) 250 ML IV SCH (14:47)
[2020-09-05] MEDS: cefTRIAXone 1,000 MG in WATER (STERILE) FOR INJECTION 10 ML IV SCH (14:48)
[2020-09-05] MEDS: LACTOBACILLUS ACIDOPHILUS (PROBIOTIC) CAPSULE PO SCH ×2 (15:29→17:01)
[2020-09-05] MEDS: MAGNESIUM 1 GM/100 ML IVPB 100 ML IV SCH ×2 (15:29→17:01)
[2020-09-05] MEDS: methylPREDNISolone 40 MG/ML (Solu-MEDROL) VIAL IV SCH ×2 (17:08→23:00)
[2020-09-06 03:57] VITALS: BP 143/76
[2020-09-06] MEDS: NS W/KCL 20 MEQ/L 1,000 ML IV SCH ×3 (05:29→19:38)
[2020-09-06] MEDS: methylPREDNISolone 40 MG/ML (Solu-MEDROL) VIAL IV SCH ×3 (05:31→18:00)
[2020-09-06] MEDS: CATHETER FLUSH 10 ML SYR IV SCH ×3 (05:32→21:11)
[2020-09-06 05:46] LABS: HEMATOCRIT 28 % (35-52); HEMOGLOBIN 8.8 g/dL (11.5-16.0); MEAN CORPUSCULAR HEMOGLOBIN 22 pg (25-34); MEAN CORPUSCULAR HGB CONC 32 g/dL (32-36); MEAN CORPUSCULAR VOLUME 69 fL (80-99); MEAN PLATELET VOLUME 9.6 fL (9.0-12.2); PLATELET COUNT 414 10^3/uL (130-400); WHITE BLOOD COUNT 10.8 10^3/uL (4.3-11.0)
[2020-09-06 06:08] LABS: CHLORIDE 103 MMOL/L (98-107); POTASSIUM 3.8 MMOL/L (3.6-5.0); SODIUM 138 MMOL/L (135-145)
[2020-09-06 06:09] LABS: CALCIUM 8.1 MG/DL (8.5-10.1); GLUCOSE 179 MG/DL (70-105)
[2020-09-06 06:11] LABS: CARBON DIOXIDE 24 MMOL/L (21-32)
[2020-09-06 06:13] LABS: CREATININE SERUM 0.66 MG/DL (0.60-1.30); GFR ESTIMATED > 60
[2020-09-06 06:14] LABS: BUN/CREATININE RATIO 8
[2020-09-06] MEDS: RT-ALBUTEROL/IPRATROPIUM 3 ML (DUONEB) VIAL INH SCH ×2 (07:21→18:29)
[2020-09-06] MEDS: DICLOFENAC 1% GEL 100 GM (VOLTAREN) TUBE TOP SCH ×4 (08:28→21:10)
[2020-09-06] MEDS: LACTOBACILLUS ACIDOPHILUS (PROBIOTIC) CAPSULE PO SCH ×3 (08:28→18:00)
[2020-09-06] MEDS: FLUoxetine HCL 20 MG (PROzac) CAP PO SCH (08:28)
[2020-09-06] MEDS: PANTOPRAZOLE 20 MG TABLET (PROTONIX) PO SCH (08:28)
[2020-09-06] MEDS: DEXTROMETHORPHAN SUSP 30 MG/5 ML 30 ML (DELSYM) PO SCH ×2 (08:28→21:14)
[2020-09-06 08:39] VITALS: BP 151/77
--- NOTE | 2020-09-06 11:07 | Diagnostic Imaging Report ---
INDICATION: Pneumonia. TECHNIQUE: Two view chest 9:05 AM CORRELATION STUDY: 09/05/2020 FINDINGS: Heart size stable with vascular remaining prominent. Patchy opacities of both lung bases are present. There has been some improvement at the left lung base. Cervical spinal fusion hardware present. IMPRESSION: 1. Stable heart size with vasculature remaining mildly prominent. 2. Improvement in aeration at the lung bases. Only minimal residual atelectasis or less likely infiltrate and trace effusions remaining at follow-up. Dictated by: Dictated on workstation # [id number]
[2020-09-06 12:52] VITALS: BP 155/88
--- NOTE | 2020-09-06 12:55 | Progress Note ---
Subjective Date Seen by a Provider: Sep 06, 2020 Time Seen by a Provider: 12:52 Subjective/Events-last exam Fwup Pneumonia with Sepsis, Hypokalemia, Acute on Chronic Anemia. Still with cough but improving. Not as short of air with exertion--did go out and walk in hallway today. Focused Exam Lactate Level 09/04/20 11:20: Lactic Acid Level 1.10 Objective Exam Vital Signs Date Time Temp Pulse Resp B/P (MAP) Pulse Ox O2 Delivery O2 Flow Rate FiO2 09/06/20 08:39 35.8 91 18 151/77 (101) 93 Room Air 09/06/20 08:00 Room Air 09/06/20 07:21 96 Room Air 0.00 09/06/20 03:57 36.9 87 20 143/76 (98) 93 Room Air 09/05/20 23:59 36.2 89 20 134/76 (95) 95 Room Air 09/05/20 20:40 94 Room Air 09/05/20 20:36 94 Room Air 09/05/20 20:00 Room Air 09/05/20 19:46 35.8 88 20 145/69 (94) 94 Room Air 09/05/20 16:36 35.9 95 18 133/61 (85) 94 Room Air 09/05/20 15:25 93 Room Air 09/05/20 15:21 93 Room Air 09/05/20 14:45 35.9 95 18 133/61 94 Room Air I & O 09/06/20 07:00 Intake Total 3575 ml Output Total 2450 ml Balance 1125 ml Capillary Refill : Less Than 3 Seconds General Appearance: No Apparent Distress Neck: Supple Respiratory: Crackles, Decreased Breath Sounds Cardiovascular: Regular Rate, Rhythm, Systolic Murmur Gastrointestinal: normal bowel sounds, non tender, soft Extremity: Non Tender, No Calf Tenderness, No Pedal Edema Neurologic/Psychiatric: Alert, Oriented x3 Results Lab Laboratory Tests 09/06/20 05:27: White Blood Count 10.8, Red Blood Count 4.01, Hemoglobin 8.8L, Hematocrit 28L, Mean Corpuscular Volume 69L, Mean Corpuscular Hemoglobin 22L, Mean Corpuscular Hemoglobin Concent 32, Red Cell Distribution Width 16.5H, Platelet Count 414H, Mean Platelet Volume 9.6, Sodium Level 138, Potassium Level 3.8, Chloride Level 103, Carbon Dioxide Level 24, Anion Gap 11, Blood Urea Nitrogen 5L, Creatinine 0.66, Estimat Glomerular Filtration Rate > 60, BUN/Creatinine Ratio 8, Glucose Level 179H, Calcium Level 8.1L 09/06/20 09:35: Stool Occult Blood Immunoassay NEGATIVE Microbiology 09/04/20 Urine Culture - Final, Complete Mixed Bacterial Shila 09/04/20 Blood Culture - Preliminary, Resulted No growth Assessment/Plan Assessment/Plan Assess & Plan/Chief Complaint 1. Pneumonia with Sepsis--CXR improving, continue IV rocephin and zithromax, continue SVNs and acapella 2. Hypokalemia--resolved 3. Acute on Chronic Anemia--H/H improved this morning 4. Weakness--doing PT SUGAR JAMES DO Sep 06, 2020 12:55
[2020-09-06] MEDS: AZITHROMYCIN INJECTION 500 MG in NS (IVPB) 250 ML IV SCH (15:35)
[2020-09-06] MEDS: cefTRIAXone 1,000 MG in WATER (STERILE) FOR INJECTION 10 ML IV SCH (15:36)
[2020-09-06 16:26] VITALS: BP 158/76
[2020-09-06 19:50] VITALS: BP 157/77
[2020-09-07] VITALS (8 sets, daily range): BP systolic 138–182; BP diastolic 80–94
[2020-09-07] MEDS: methylPREDNISolone 40 MG/ML (Solu-MEDROL) VIAL IV SCH ×3 (00:42→11:06)
[2020-09-07 05:14] LABS: HEMATOCRIT 27 % (35-52); HEMOGLOBIN 8.7 g/dL (11.5-16.0); MEAN CORPUSCULAR HEMOGLOBIN 22 pg (25-34); MEAN CORPUSCULAR HGB CONC 32 g/dL (32-36); MEAN CORPUSCULAR VOLUME 68 fL (80-99); MEAN PLATELET VOLUME 9.4 fL (9.0-12.2); PLATELET COUNT 487 10^3/uL (130-400); WHITE BLOOD COUNT 16.9 10^3/uL (4.3-11.0)
[2020-09-07 05:29] LABS: CHLORIDE 105 MMOL/L (98-107); POTASSIUM 4.1 MMOL/L (3.6-5.0); SODIUM 138 MMOL/L (135-145)
[2020-09-07 05:31] LABS: GLUCOSE 145 MG/DL (70-105)
[2020-09-07 05:32] LABS: CARBON DIOXIDE 21 MMOL/L (21-32)
[2020-09-07 05:35] LABS: CREATININE SERUM 0.65 MG/DL (0.60-1.30); GFR ESTIMATED > 60
[2020-09-07 05:36] LABS: BUN/CREATININE RATIO 15
[2020-09-07] MEDS: CATHETER FLUSH 10 ML SYR IV SCH ×3 (05:42→20:31)
[2020-09-07] MEDS: RT-ALBUTEROL/IPRATROPIUM 3 ML (DUONEB) VIAL INH SCH (07:03)
[2020-09-07] MEDS ORDERED: RT-ALBUTEROL/IPRATROPIUM 3 ML (DUONEB) VIAL INH PRN (07:15)
--- NOTE | 2020-09-07 07:52 | Progress Note ---
Subjective Date Seen by a Provider: Sep 07, 2020 Time Seen by a Provider: 07:49 Subjective/Events-last exam Fwup Pneumonia with Sepsis, Hypokalemia, Acute on Chronic Anemia. Coughing more this morning--dry cough. Feels worn out from coughing. Focused Exam Lactate Level 09/04/20 11:20: Lactic Acid Level 1.10 Objective Exam Vital Signs Date Time Temp Pulse Resp B/P (MAP) Pulse Ox O2 Delivery O2 Flow Rate FiO2 09/07/20 07:03 35.8 96 96 09/07/20 07:03 96 Room Air 09/07/20 04:12 35.8 88 19 163/84 (110) 93 Room Air 09/07/20 00:12 35.9 105 19 138/89 (105) 93 Room Air 09/06/20 19:50 37.0 94 18 157/77 (103) 93 Room Air 09/06/20 19:20 Room Air 09/06/20 18:29 95 Room Air 09/06/20 16:26 36.1 88 18 158/76 (103) 95 Room Air 09/06/20 12:52 36.2 87 19 155/88 (110) 96 Room Air 09/06/20 08:39 35.8 91 18 151/77 (101) 93 Room Air 09/06/20 08:00 Room Air I & O 09/07/20 07:00 Intake Total 4755 ml Output Total 200 ml Balance 4555 ml Capillary Refill : Less Than 3 Seconds General Appearance: Mild Distress Respiratory: Crackles, Decreased Breath Sounds Cardiovascular: Regular Rate, Rhythm, Systolic Murmur Gastrointestinal: normal bowel sounds, non tender, soft Extremity: Non Tender, No Calf Tenderness, No Pedal Edema Neurologic/Psychiatric: Alert, Oriented x3 Results Lab Laboratory Tests 09/06/20 09:35: Stool Occult Blood Immunoassay NEGATIVE 09/07/20 05:12: White Blood Count 16.9H, Red Blood Count 3.93, Hemoglobin 8.7L, Hematocrit 27L, Mean Corpuscular Volume 68L, Mean Corpuscular Hemoglobin 22L, Mean Corpuscular Hemoglobin Concent 32, Red Cell Distribution Width 16.9H, Platelet Count 487H, Mean Platelet Volume 9.4, Sodium Level 138, Potassium Level 4.1, Chloride Level 105, Carbon Dioxide Level 21, Anion Gap 12, Blood Urea Nitrogen 10, Creatinine 0.65, Estimat Glomerular Filtration Rate > 60, BUN/Creatinine Ratio 15, Glucose Level 145H, Calcium Level 8.0L Microbiology 09/05/20 Gram Stain - Final, Resulted 09/05/20 Sputum Culture - Preliminary, Resulted Usual upper respiratory alejandro 09/04/20 Urine Culture - Final, Complete Mixed Bacterial Alejandro 09/04/20 Blood Culture - Preliminary, Resulted No growth Assessment/Plan Assessment/Plan Assess & Plan/Chief Complaint 1. Pneumonia with Sepsis--Repeat CXR in AM, continue IV rocephin and zithromax, continue SVNs and acapella, add mucinex and diflucan 2. Hypokalemia--resolved 3. Acute on Chronic Anemia--H/H improved 4. Weakness--doing PT SUGAR JAMES DO Sep 07, 2020 07:52
[2020-09-07] MEDS ORDERED: FLUCONAZOLE 200 MG/100 ML 100 ML IV NR (08:00)
[2020-09-07] MEDS: LACTOBACILLUS ACIDOPHILUS (PROBIOTIC) CAPSULE PO SCH ×3 (08:23→17:18)
[2020-09-07] MEDS: PANTOPRAZOLE 20 MG TABLET (PROTONIX) PO SCH ×2 (08:23→20:31)
[2020-09-07] MEDS: FLUoxetine HCL 20 MG (PROzac) CAP PO SCH (08:23)
[2020-09-07] MEDS: guaiFENesin (MUCINEX) 600 MG TAB PO SCH ×2 (08:23→20:31)
[2020-09-07] MEDS: amLODIPine 2.5MG (NORVASC) TAB PO SCH (08:23)
[2020-09-07] MEDS: DICLOFENAC 1% GEL 100 GM (VOLTAREN) TUBE TOP SCH ×4 (08:24→20:31)
[2020-09-07] MEDS: DEXTROMETHORPHAN SUSP 30 MG/5 ML 30 ML (DELSYM) PO SCH ×2 (08:27→20:31)
--- NOTE | 2020-09-07 08:52 | Diagnostic Imaging Report ---
PA and lateral chest at 844h. INDICATION: Pneumonia The heart size is stable when compared to the prior exam of 09/06/2020. The central pulmonary vascularity remains somewhat prominent. Furthermore there is still atelectasis/infiltrate involving both lung bases and I suspect there may be a small amount of fluid in each lung base as well. These findings are similar to the prior exam. The mediastinum is not widened. The osseous structures are intact. IMPRESSION: Stable chest. There has been no adverse change since the prior exam. A follow-up study would be recommended for continued evaluation. Dictated by: Dictated on workstation # [id number]
[2020-09-07] MEDS: cefTRIAXone 1,000 MG in WATER (STERILE) FOR INJECTION 10 ML IV SCH (14:59)
[2020-09-07] MEDS: AZITHROMYCIN INJECTION 500 MG in NS (IVPB) 250 ML IV SCH (15:58)
[2020-09-08 04:00] VITALS: BP 163/89
[2020-09-08] MEDS: CATHETER FLUSH 10 ML SYR IV SCH (06:24)
[2020-09-08 06:58] LABS: HEMATOCRIT 28 % (35-52); MEAN CORPUSCULAR HEMOGLOBIN 22 pg (25-34); MEAN CORPUSCULAR HGB CONC 32 g/dL (32-36); MEAN CORPUSCULAR VOLUME 69 fL (80-99); MEAN PLATELET VOLUME 9.5 fL (9.0-12.2); PLATELET COUNT 546 10^3/uL (130-400); WHITE BLOOD COUNT 11.9 10^3/uL (4.3-11.0)
[2020-09-08 07:31] LABS: BUN/CREATININE RATIO 18; CALCIUM 8.6 MG/DL (8.5-10.1); CARBON DIOXIDE 24 MMOL/L (21-32); CHLORIDE 104 MMOL/L (98-107); CREATININE SERUM 0.67 MG/DL (0.60-1.30); GFR ESTIMATED > 60; GLUCOSE 97 MG/DL (70-105); POTASSIUM 3.5 MMOL/L (3.6-5.0); SODIUM 138 MMOL/L (135-145)
[2020-09-08] MEDS: LACTOBACILLUS ACIDOPHILUS (PROBIOTIC) CAPSULE PO SCH (08:11)
[2020-09-08] MEDS: guaiFENesin (MUCINEX) 600 MG TAB PO SCH (08:11)
[2020-09-08] MEDS: PANTOPRAZOLE 20 MG TABLET (PROTONIX) PO SCH (08:11)
[2020-09-08] MEDS: amLODIPine 2.5MG (NORVASC) TAB PO SCH (08:11)
[2020-09-08] MEDS: FLUoxetine HCL 20 MG (PROzac) CAP PO SCH (08:11)
[2020-09-08] MEDS: DICLOFENAC 1% GEL 100 GM (VOLTAREN) TUBE TOP SCH (08:12)
[2020-09-08] MEDS: DEXTROMETHORPHAN SUSP 30 MG/5 ML 30 ML (DELSYM) PO SCH (08:13)
[2020-09-08] MEDS ORDERED: KCL 20 MEQ TAB (K-DUR) PO NR (08:15)
[2020-09-08] MEDS ORDERED: FUROSEMIDE 40 MG/4 ML INJ (LASIX) IVP NR (08:15)
--- NOTE | 2020-09-08 08:30 | Diagnostic Imaging Report ---
INDICATION: Pneumonia PA and lateral views of the chest are obtained. Comparison is made to study one day earlier. Overall heart size and pulmonary vascularity are within normal limits. There is slight blunting of costophrenic sulci bilaterally. There is no lobar consolidation or pneumothorax. IMPRESSION: Mild blunting of the costophrenic sulci may reflect mild basilar atelectasis and/or pneumonitis with probable small amount of bilateral pleural fluid. Dictated by: Dictated on workstation # [id number]
[2020-09-08] MEDS ORDERED: FUROSEMIDE 40 MG (LASIX) TAB PO NR (08:45)
[2020-09-08] MEDS ORDERED: fluCOnazole (DIFLUCAN) 100 MG TAB PO SCH (09:00)
[2020-09-08] MEDS ORDERED: LACT1CAP7 PO (10:18)
[2020-09-08] MEDS ORDERED: AZIT250T12 PO (10:18)
[2020-09-08] MEDS ORDERED: CEFD300C3 PO (10:18)
[2020-09-08] MEDS ORDERED: AMLO2.5T4 PO (10:18)
[2020-09-08] MEDS ORDERED: DICL100G13 TOP (10:18)
[2020-09-08] MEDS ORDERED: FLUC100T6 PO (10:18)
[2020-09-08] MEDS ORDERED: GUAI600T43 PO (10:18)
[2020-09-08] MEDS ORDERED: ALBU18HF2 INH (10:18)
--- NOTE | 2020-09-08 10:20 | Discharge Inst-Simple/Standard ---
Discharge Inst-Standard Reconcile Patient Problems Problems Reviewed?: Yes Discharge Medications New, Converted or Re-Newed RX: Transmitted to Pharmacy ([facility]) Patient Instructions/Follow Up Plan of Care/Instructions/FU: [address] amaya or victoriano if pt is back from vacation in one week, otherwise, plan on appt in 2 -3 weeks Activity as Tolerated: Yes Discharge Diet: Regular Diet Return to The Hospital For: any concern for worsening shortness of breath, or other lifethreatening illness or injury Medication List: Active Scripts Active Ventolin Hfa (Albuterol Sulfate) 18 Gm Hfa.aer.ad 1 Puff INH QID Cefdinir 300 Mg Capsule 300 Mg PO BID Acidophilus-Pectin Capsule (Lactobacillus Acidophilus/Pect) 1 Each Capsule 1 Each PO TIDWM Mucinex (Guaifenesin) 600 Mg Tab.er.12h 600 Mg PO BID Diclofenac Sodium 100 Gm Gel..gram. 0 Gm TOP QID apply to affected joints Amlodipine Besylate 2.5 Mg Tablet 2.5 Mg PO DAILY Fluconazole 100 Mg Tablet 100 Mg PO DAILY Azithromycin 250 Mg Tablet 250 Mg PO DAILY restart on 09/09/2020 take one pill daily x 4 more days Reported Pantoprazole Sodium 20 Mg Tablet.dr 20 Mg PO DAILY Fluoxetine HCl 20 Mg Capsule 20 Mg PO DAILY Lab results: Laboratory Tests Test 09/08/20 06:05 Range/Units White Blood Count 11.9 H 4.3-11.0 10^3/uL Red Blood Count 4.09 3.80-5.11 10^6/uL Hemoglobin 9.0 L 11.5-16.0 g/dL Hematocrit 28 L 35-52 % Mean Corpuscular Volume 69 L 80-99 fL Mean Corpuscular Hemoglobin 22 L 25-34 pg Mean Corpuscular Hemoglobin Concent 32 32-36 g/dL Red Cell Distribution Width 17.2 H 10.0-14.5 % Platelet Count 546 H 130-400 10^3/uL Mean Platelet Volume 9.5 9.0-12.2 fL Sodium Level 138 135-145 MMOL/L Potassium Level 3.5 L 3.6-5.0 MMOL/L Chloride Level 104 98-107 MMOL/L Carbon Dioxide Level 24 21-32 MMOL/L Anion Gap 10 5-14 MMOL/L Blood Urea Nitrogen 12 7-18 MG/DL Creatinine 0.67 0.60-1.30 MG/DL Estimat Glomerular Filtration Rate > 60 BUN/Creatinine Ratio 18 Glucose Level 97 70-105 MG/DL Calcium Level 8.6 8.5-10.1 MG/DL My orders: Orders - COLTEN AMAYA MD Furosemide Injection (Lasix Injection) (09/08/20 08:15) Potassium Chloride (Tablet) (K Dur Table (09/08/20 08:15) Furosemide Tablet (Lasix Tablet) (09/08/20 08:45) Attending Discharge Inpt/Inobs (09/08/20 09:17) COLTEN AMAYA MD Sep 08, 2020 10:20
--- NOTE | 2020-09-08 10:27 | Discharge Summary ---
Diagnosis/Chief Complaint Date of Admission Sep 04, 2020 at 14:20 Date of Discharge Discharge Date: Sep 08, 2020 Discharge Time: 1100 Admission Diagnosis Admission Diagnosis PNEUMONIA SEPSIS ELEVATED CRP DEPRESSION HYPOKALEMIA THALASSEMIA MINOR ANEMIA Discharge Diagnosis PNEUMONIA SEPSIS ELEVATED CRP DEPRESSION HYPOKALEMIA THALASSEMIA MINOR ANEMIA HYPERTENSION DUE TO STEROIDS Reason Hospital Visit PT IS A 69 Y/O FEMALE WHO IS KNOWN TO ME FROM CLINIC. SHE PRESENTED TO THE EMERGENCY DEPARTMENT AFTER HAVING NAUSEA, EMESIS AND UNABLE TO KEEP DOWN ANTIBIOTICS FOR PNEUMONIA TREATMENT. SHE DENIES CHEST PAIN, ABDOMINAL PAIN, BUT HAS HAD SOME LOOSE STOOLS SINCE ADMISSION. Discharge Summary Discharge Physical Examination Allergies: Coded Allergies: No Known Drug Allergies (Unverified , 09/04/20) Vitals & I&Os Vital Signs Date Time Temp Pulse Resp B/P (MAP) Pulse Ox O2 Delivery O2 Flow Rate FiO2 09/08/20 08:00 Room Air 09/08/20 04:00 36.1 107 16 163/89 (113) 94 09/06/20 07:21 0.00 General Appearance: Alert, Oriented X3, Cooperative, No Acute Distress HEENT: Atraumatic, PERRLA, Mucous Memb Moist/Norene Respiratory: Other (faint crackles in bases bilaterally) Cardiovascular: Regular Rate Abdominal: Normal Bowel Sounds, Soft, No Tenderness Extremities: No Clubbing, No Cyanosis Skin: No Rashes, No Breakdown Neuro: Strength at 5/5 X4 Ext, Cranial Nerves 3-12 NL Psych/Mental Status: Mental Status NL, Mood NL Hospital Course Was the Problem List Reviewed?: Yes PNEUMONIA SEPSIS ELEVATED CRP DEPRESSION HYPOKALEMIA THALASSEMIA MINOR ANEMIA HYPERTENSION PNEUMONIA WITH SEPSIS - IV ROCEPHIN AND AZITHROMYCIN - WILL CONTINUE OUTPT - FINISH 4 MORE DAYS OF AZITHROMYCIN AND 7 MORE DAYS OF CEFDINIR. - COVID SWAB NEGATIVE - REPEAT CXR SHOWING IMPROVEMENT - STEROIDS IV -STOPPED DUE TO ELEVATED BP ELEVATED CRP - DUE TO ACUTE ILLNESS, MONITOR SYMPTOMS DEPRESSION - RESUMED HOME REGIMEN HYPOKALEMIA - REPLENISHED WITH IV AND ORAL POTASSIUM THALASSEMIA MINOR - PT GIVEN A ONE UNIT TRANSFUSION - HGB IMPROVED UP TO 9 TODAY. ANEMIA DUE TO THALASSEMIA MINOR HTN - MAY BE SITUATIONAL DUE TO STEROIDS - HAS NOT BEEN ON ANTIHYPERTENSIVES OUTPATIENT. - WILL GIVE A SMALL DOSE OF AMLODIPINE 2.5MG TO TAKE DAILY UNTIL THE AFFECT OF STEROIDS AND ACUTE ILLNESS IMPROVE. FOLLOW UP IN THE OFFICE IN ABOUT 1-2 WEEKS - PT PLANNING ON GOING ON VACATION IF HER ILLNESS WILL PERMIT. Pending Labs Laboratory Tests 09/08/20 06:05: White Blood Count 11.9, Red Blood Count 4.09, Hemoglobin 9.0, Hematocrit 28, Mean Corpuscular Volume 69, Mean Corpuscular Hemoglobin 22, Mean Corpuscular Hemoglobin Concent 32, Red Cell Distribution Width 17.2, Platelet Count 546, Mean Platelet Volume 9.5, Sodium Level 138, Potassium Level 3.5, Chloride Level 104, Carbon Dioxide Level 24, Anion Gap 10, Blood Urea Nitrogen 12, Creatinine 0.67, Estimat Glomerular Filtration Rate > 60, BUN/Creatinine Ratio 18, Glucose Level 97, Calcium Level 8.6 Discharge Instructions to patient/family Please see electronic discharge instructions given to patient. Discharge Medications Reviewed and agree with Discharge Medication list on patient's Discharge Instruction sheet COLTEN JACK MD Sep 08, 2020 10:27
[2020-09-08 11:08] VITALS: BP 163/89
== END 2020-09-08 11:10 | disposition home or self-care (01) | DRG 871 ==
LOC: EDUNIT# 10:47 → ER 10:50 → 4TH 14:20
PROVIDERS: ADMIT Family Medicine; ATTEND Family Medicine
DX: A41.9 Sepsis, unspecified organism (principal); J18.9 Pneumonia, unspecified organism; F32.9 Major depressive disorder, single episode, unspecified; E87.6 Hypokalemia; D64.9 Anemia, unspecified; D56.9 Thalassemia, unspecified; Z20.822 Contact with and (suspected) exposure to COVID-19; I10 Essential (primary) hypertension; T38.0X5A Adverse effect of glucocorticoids and synthetic analogues, initial encounter; R53.1 Weakness; Z79.2 Long term (current) use of antibiotics; Z79.899 Other long term (current) drug therapy; K21.9 Gastro-esophageal reflux disease without esophagitis; K57.90 Diverticulosis of intestine, part unspecified, without perforation or abscess without bleeding
CPT/HCPCS: 36415; 71045; 71046; 71275; 80048; 80053; 81000; 82274; 83605; 83735; 84145; 85025; 85027; 85379; 85610; 85730; 86141; 86850; 86900; 86901; 86920; 87040; 87070; 87088; 87205; 87636; 94640; 94760